=== PATIENT | male | born 1970 | race Caucasian/White ===

== ENCOUNTER 2018-01-03 18:07 | Emergency (ER) | payer BC ==
[2018-01-03 18:14] VITALS: BP 129/83
--- NOTE | 2018-01-03 18:21 | UC ---
FLU HPI - HPI Summary HPI Summary: Pt presents with dry cough and sore throat for the last 2 weeks. Over the last 3 days has had body aches and fatigue. He has not taken anything for his symptoms. He says that his throat feels large and painful - worse at night. He can eat solid food, but is very painful so has been only been drinking most of the time. He is able to tolerate his own saliva and is breathing without difficulty. Denies fever, chills, SOB, chest pain, abdominal pain, n/v/d/c. - History of Current Complaint Chief Complaint: UCGeneralIllness Stated Complaint: RESP COMPLAINT Time Seen by Provider: 01/03/18 18:18 Hx Obtained From: Patient Severity Currently: Moderate Severity Initially: Moderate Pain Intensity: 6 Pain Scale Used: 0-10 Numeric - Allergy/Home Medications Allergies/Adverse Reactions: Allergies Allergy/AdvReac Type Severity Reaction Status Date / Time No Known Allergies Allergy Verified 01/03/18 18:14 Home Medications: Home Medications Tiotropium Br/Olodaterol HCl [Stiolto Respimat Inhal [place]] 4 gm PO DAILY [History Confirmed 01/03/18] PMH/Surg Hx/FS Hx/Imm Hx Endocrine History: Diabetes Cardiovascular History: Hypertension - Surgical History Surgical History: None - Family History Known Family History: Positive: None - Social History Lives: With Family Alcohol Use: None Substance Use Type: None Smoking Status (MU): Light Every Day Tobacco Smoker Type: Cigarettes Amount Used/How Often: 1 PPD Length of Time of Smoking/Using Tobacco: 20 YEARS Have You Smoked in the Last Year: Yes Review of Systems Constitutional: Fatigue, Other - Body aches Skin: Negative Eyes: Negative ENT: Sore Throat Respiratory: Cough Cardiovascular: Negative Gastrointestinal: Negative Neurovascular: Negative Musculoskeletal: Negative Neurological: Negative Psychological: Negative All Other Systems Reviewed And Are Negative: Yes Physical Exam Triage Information Reviewed: Yes Appearance: Well-Appearing, No Pain Distress, Well-Nourished Vital Signs: Initial Vital Signs Temp 97.9 F 01/03/18 18:10 Pulse 100 01/03/18 18:10 Resp 21 01/03/18 18:10 BP 129/83 01/03/18 18:10 Pulse Ox 98 01/03/18 18:10 Vital Signs Reviewed: Yes Eyes: Positive: Conjunctiva Clear. Negative: Conjunctiva Inflamed, Discharge ENT: Positive: Hearing grossly normal, Pharyngeal erythema, TMs normal, Tonsillar swelling - Left 4+ and abutting the uvula, Muffled voice - Mild, Uvula midline. Negative: Nasal congestion, Nasal drainage, TM bulging, TM dull , TM red, Tonsillar exudate, Hoarse voice, Sinus tenderness Neck: Positive: Supple, Other: - Anterior lymphadenopathy. Mildly TTP. Respiratory: Positive: Lungs clear, Normal breath sounds, No respiratory distress, No accessory muscle use Cardiovascular: Positive: RRR, No Murmur, Pulses Normal Neurological: Positive: Alert Psychological: Positive: Age Appropriate Behavior Skin: Negative: rashes Flu Course/Dx - Course Course Of Treatment: POC flu negative. Peritonsillar abscess on left. 1gm ceftriaxone IM and 4mg dexamethasone in clinic today. D/c with clindamycin 300mg TID and prednisone 40mg daily for 3 days. I spoke with Dr. AIKEN of ENT and he was in agreement with this plan and advised the pt to call his office on wednesday for f/u. Go to ED if symptoms worsen. - Differential Dx/Diagnosis Provider Diagnoses: Peritonsillar abscess left Discharge - Discharge Plan Condition: Stable Disposition: HOME Prescriptions: Clindamycin HCl 300 mg PO TID #30 capsule predniSONE TAB* [Deltasone TAB*] 20 mg PO BID #6 tab Patient Education Materials: Peritonsillar Abscess (ED) Referrals: Jorge L Aiken MD [Medical Doctor] - Oracio Hurley NP [Primary Care Provider] - Additional Instructions: If you develop a fever, shortness of breath, chest pain, new or worsening symptoms - please call your PCP or go to the ED. 1) If by Wednesday your symptoms have not improved or if they are worse - please call DR. AIKEN at [phone] and he will see you.
[2018-01-03] MEDS ORDERED: Lidocaine 1% MPF* 2 ML VIAL INJ ONE (19:06)
[2018-01-03] MEDS ORDERED: cefTRIAXone VIAL(*) 1,000 MG VIAL IM ONE (19:06)
[2018-01-03] MEDS ORDERED: Dexamethasone TAB* 4 MG PO ONE (19:11)
== END 2018-01-03 20:00 | disposition home or self-care (01) ==
LOC: UCEAST 18:07
DX: J36 Peritonsillar abscess (principal); R53.83 Other fatigue; M79.1 Myalgia; R05 Cough; E11.9 Type 2 diabetes mellitus without complications; I10 Essential (primary) hypertension; F17.210 Nicotine dependence, cigarettes, uncomplicated
CPT/HCPCS: 87502; 96372; 99212; G0463; J0696; J8540

== ENCOUNTER 2019-05-31 19:40 | Emergency (ER) | payer BC ==
--- OUTSIDE RECORDS SUMMARY | 2019-05-31 19:46 | XMS REPORT | Continuity of Care Document ---
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 Onset: 10/29/2015 Restless legs Oracio Hurely, N.P. Onset: 10/29/2015 Essential hypertension Oracio Hurley, N.P. Onset: 10/29/2015 Chronic obstructive lung disease Oracio Hurley, N.P. Onset: 01/28/2016 Overweight Oracio Hurley, N.P. Onset: 01/25/2017 Mood disorder Oracio Hurley, N.P. 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 Ointment knees and elbows Ibuprofen 1 by mouth four 40tabs [place], 10/25/2018 800mg Tablets times a day with Mashelle, N.P. food Farxiga 1 by mouth every 30tabs [place], 08/08/2018 5mg Tablets day Mashelle, N.P. Trazodone HCL take one to two 60tabs [place], 07/26/2018 100mg tablets by mouth Mashelle, N.P. Tablets at bedtime Allergy [place], 04/26/2018 10mg Tablets Mashelle, N.P. Prilosec OTC 1 by mouth every 90tabs [place], 01/24/2018 20mg day Mashelle, N.P. Tablets DR Reddy [facility] Strips Glucometer Once Mashelle, N.P. Daily as Directed Ropinirole HCL Take One Tablet By 90ta [place], 10/29/2015 3mg Mouth AT Bedtime Mashelle, N.P. Tablets Stiolto Respimat Inhale Two Puffs 4un [place], 10/29/2015 By Mouth Every Day Mashelle, N.P. 2.5-2.5mcg/Act Aerosol Glucometer use as directed [facility], 03/09/2014 tid Mashelle, N.P. Test Strips [facility], 03/09/2014 glucometer once Mashelle, N.P. every day as directed Tradjenta Take One Tablet By 90tabs [place], 02/29/2012 5mg Tablets Mouth Every Day Mashelle, N.P. Met[facility] HCL [facility] 500mg mouth twice a day Mashelle, N.P. Tablets Lisinopril take one tablet by 90tabs [place], 04/23/2011 20mg Tablets mouth every day Mashelle, N.P. Vitamin D-3 Super 1 po qd 100tabs Bernard Cuenca 03/26/2009 Riky Pendleton MD 2000Unit Tablets History Medications Trazodone HCL take one to two 60tabs [place], 07/26/2018 - 100mg tablets by mouth Mashelle, N.P. 10/25/2018 Tablets at bedtime Lyrica take one capsule 28caps [place], 04/26/2018 - 75mg Capsules by mouth twice a Mashelle, N.P. 07/26/2018 day maximum daily dose=2 capsules Omeprazole Take One Capsule 30caps [place], 02/22/2018 - 20mg Capsules [facility]outh [facility] 04/[facility]2018 DR Day Cyclobenzaprine HCL Take One Tablet 30tabs [place], 02/03/2018 - 10mg By Mouth AT Mashelle, N.P. 07/26/2018 Tablets Bedtime Calcipotriene Apply bid to 60gm [place], 01/24/2018 - 0.005% [facility] 04/26/2018 Ointment knees and elbows Duloxetine HCL take 1 capsule by 30caps [facility], 10/26/2017 - 60mg Caps mouth 1 time Oracio, N.P. 11/16/2017 DR Part daily Sertraline HCL take one tablet 90tabs [place], 10/26/2017 - 50mg by mouth at Mashelle, N.P. 01/24/2018 Tablets bedtime Cyclobenzaprine HCL Take One Tablet 30tabs [place], 03/24/2017 - 10mg By Mouth [facility] 10/26/2017 Tablets Bedtime Escitalopram Oxalate 1 by mouth every 30tabs [place], 01/25/2017 - 20mg day Mashelle, N.P. 04/27/2017 Tablets Nicotrol use up to 16 504units [place], 01/25/2017 - 10mg Inhaler cartridges qd as Mashelle, N.P. 07/26/2018 directed Cyclobenzaprine HCL take one tablet 30tabs [facility], 10/27/2016 - 10mg by mouth q hs Demetriusle, N.P. 01/25/2017 Tablets Cyclobenzaprine HCL take one tablet 30tabs [place], 07/28/2016 - 10mg by mouth three Mashelle, N.P. 10/27/2016 Tablets times a day as needed muscle spasm Wellbutrin XL take one tablet 30tabs [place], 04/28/2016 - 150mg by mouth every Mashelle, N.P. 04/27/2017 Tablets ER 24HR day Zithromax Z-Flaquito as directed 1tabs [place], 10/16/2015 - [facility] 10/29/2015 Tablets Neurontin Take Two Capsules 60caps [place], 10/01/2015 - 100mg Capsules By Mouth AT [facility], N.P. 10/29/2015 Bedtime And Take One Capsule By Mouth Every Morning Ropinirole HCL 1 po qhs 30tabs [place], 09/09/2015 - 2mg [place], N.P. 10/29/2015 Tablets Gabapentin 2 by mouth every 60caps [place], 07/30/2015 - 100mg Capsules at bedtime and 1 Mashelle, N.P. 10/29/2015 in in the morning Soma 1 by mouth four 20tabs [place], 04/25/2015 - 350mg Tablets times a day Mashelle, N.P. 07/30/2015 Cyclobenzaprine HCL 1 po q tid prn 30tabs [place], 10/26/2014 - 10mg [facility]asm [facility] 04/25/2015 Tablets Cipro 1 by mouth twice 20tabs [place], 07/25/2014 - 500mg Tablets a day x 10 days Oracio, N.P. 08/30/2014 Requip 1 by mouth every 90tabs [place], 10/24/2013 - 2mg Tablets at bedtime [place], N.P. 07/30/2015 Cyclobenzaprine HCL 1 po q tid prn 30tabs [place], 08/09/2013 - 10mg spasm [facility], N.P. 07/25/2014 Tablets Keflex 1 po qid x 10 40caps [place], 02/16/2013 - 500mg Capsules days Mashelle, N.P. 05/08/2013 Clotrimazole/Betametha apply tid to 45gm [place], 02/03/2013 - sone Dipropionate affected area [place], N.P. 08/09/2013 1-0.05% Cream Flexeril 1 po q hs 30tabs [place], 05/05/2012 - 10mg Tablets [place], N.P. 08/09/2013 Onglyza 1 po qd 30tabs [place], 02/12/2012 - 5mg Tablets Demetriusle, N.P. 02/29/2012 Lotrisone apply tid to 45gm [place], 02/03/2012 - 1-0.05% Cream affected area [place], N.P. 02/03/2013 Wellbutrin XL 1 by mouth every 90tabs [place], 11/03/2011 - 300mg day [place], N.P. 01/24/2015 Tablets ER 24HR Lotrisone apply tid to 15gm [place], 08/04/2011 - 1-0.05% Cream affected area Demetriusreji, N.P. 11/03/2011 Bactroban apply bid as 22gm [place], 05/07/2011 - 2% Ointment directed Oracio, N.P. 07/24/2011 Lisinopril 1 po qd 30tabs [place], 04/09/2011 - 10mg [facility]ts [facility] 04/23/2011 Wellbutrin SR 1 po bid 60tabs [place], 04/09/2011 - 150mg Oracio, N.P. 11/03/2011 Tablets ER 12HR Prednisone 1 po qd x 5 days 5tabs [place], 03/31/2011 - 50mg Tablets Demetriusle, N.P. 04/09/2011 Keflex 1 po qid x 7 days 28caps [place], 03/31/2011 - 500mg Capsules [facility] 04/09/2011 Clobetasol Propionate apply bid prn 60gm [place], 06/27/2009 - as directed Oracio N.P. 08/09/2013 0.05% Cream Chantix Starter Pack as directed 1Mos 401.9 Bernard Cuenca 2009 - MD Keerthi 03/31/2011 #1Pack Triamcinolone bid x 10 days 60GR 696.8 Bernard Cuenca 2009 - Acetmindy Pendleton MD 08/04/2011 0.5% Cream Taclonex Unknown - 0.005-0.064% 10/26/2014 Suspension Calcipotriene Unknown - 0.005% 10/26/2014 Ointment Immunizations CPT Code Status Date Vaccine Lot # [id number] Given 07/26/2018 Influenza Vac, Quadrivalent, Split, 0.5mL Dosage, [id number] Im Use 94802 Given 07/27/2017 Influenza Vac, Quadrivalent, Split, 0.5mL Dosage, [id number] Im Use 39537 Given 10/27/2016 Influenza Vac, Quadrivalent, Split, 0.5mL Dosage, [id number] Im Use 09762 Given 07/30/2015 Influenza Vac, Quadrivalent, Split, 0.5mL Dosage, [id number] Im Use 21323 Given 10/26/2014 Afluria Or Fluvirin Flu Vac Intramuscular [id number] Q2038 Given 10/24/2013 Fluzone Trivalent Immunization [id number] Given 2009 Tdap (Adacel) Ages 7 And Above Only [id number] Vital Signs Date Vital Result Comment 05/02/2019 8:01am Body Temperature 98.2 F Weight 331.00 lb Heart Rate 86 /min BP Systolic 128 mmHg BP Diastolic 80 mmHg Height 71 inches 5'11" O2 % BldC Oximetry 95 % BMI (Body Mass Index) 46.2 kg/m2 01/26/2019 7:59am Body Temperature 97.0 F Weight 337.38 lb Heart Rate 88 /min BP Systolic 132 mmHg BP Diastolic 82 mmHg O2 % BldC Oximetry 94 % 10/25/2018 8:03am Body Temperature 97.7 F Weight 342.25 lb Heart Rate 75 /min BP Systolic 130 mmHg BP Diastolic 76 mmHg O2 % BldC Oximetry 97 % 08/08/2018 8:06am Body Temperature 97.3 F Weight 330.00 lb Heart Rate 91 /min BP Systolic 146 mmHg BP Diastolic 94 mmHg O2 % BldC Oximetry 95 % 07/26/2018 8:04am Body Temperature 97.7 F Weight 337.50 lb Heart Rate 82 /min BP Systolic 147 mmHg BP Diastolic 90 mmHg O2 % BldC Oximetry 92 % 04/26/2018 8:01am Body Temperature 97.7 F Weight 346.00 lb Heart Rate 80 /min BP Systolic 130 mmHg BP Diastolic 90 mmHg O2 % BldC Oximetry 98 % 01/24/2018 8:00am Body Temperature 97.3 F Weight 336.25 lb Heart Rate 97 /min BP Systolic 133 mmHg BP Diastolic 87 mmHg O2 % BldC Oximetry 98 % 11/16/2017 8:28am Body Temperature 97.9 F Weight 337.00 lb Heart Rate 93 /min BP Systolic 144 mmHg BP Diastolic 84 mmHg O2 % BldC Oximetry 95 % 10/26/2017 8:11am Body Temperature 97.7 F Weight 341.00 lb Heart Rate 78 /min BP Systolic 136 mmHg BP Diastolic 85 mmHg O2 % BldC Oximetry 94 % 07/27/2017 8:11am Body Temperature 97.3 F Weight 332.00 lb Heart Rate 84 /min BP Systolic 120 mmHg BP Diastolic 80 mmHg O2 % BldC Oximetry 96 % 04/27/2017 8:05am Body Temperature 97.5 F Weight 335.00 lb Heart Rate 85 /min BP Systolic 120 mmHg BP Diastolic 80 mmHg O2 % BldC Oximetry 96 % 01/25/2017 8:08am Body Temperature 97.5 F Weight 342.50 lb Heart Rate 80 /min BP Systolic 138 mmHg BP Diastolic 80 mmHg Height 73 inches 6'1" BMI (Body Mass Index) 45.2 kg/m2 10/27/2016 8:07am Body Temperature 96.8 F Weight 341.12 lb Heart Rate 91 /min BP Systolic 130 mmHg BP Diastolic 80 mmHg O2 % BldC Oximetry 93 % 07/28/2016 8:23am Body Temperature 96.6 F Weight 334.50 lb Heart Rate 77 /min BP Systolic 140 mmHg BP Diastolic 80 mmHg O2 % BldC Oximetry 95 % 04/28/2016 8:13am Body Temperature 97.3 F Weight 337.31 lb Heart Rate 85 /min BP Systolic 136 mmHg BP Diastolic 84 mmHg O2 % BldC Oximetry 96 % 01/28/2016 8:33am Body Temperature 97.3 F Weight 330.00 lb Heart Rate 92 /min BP Systolic 120 mmHg BP Diastolic 86 mmHg O2 % BldC Oximetry 94 % 10/29/2015 7:52am Body Temperature 97.3 F Weight 322.25 lb Heart Rate 86 /min BP Systolic 134 mmHg BP Diastolic 86 mmHg O2 % BldC Oximetry 97 % 10/16/2015 9:46am Body Temperature 97.0 F Weight 327.25 lb Heart Rate 90 /min BP Systolic 110 mmHg BP Diastolic 70 mmHg O2 % BldC Oximetry 96 % 07/30/2015 8:27am Body Temperature 97.9 F Weight 319.12 lb Heart Rate 81 /min BP Systolic 142 mmHg BP Diastolic 88 mmHg O2 % BldC Oximetry 97 % 04/25/2015 8:38am Body Temperature 97.2 F Weight 323.00 lb Heart Rate 84 /min BP Systolic 128 mmHg BP Diastolic 86 mmHg O2 % BldC Oximetry 97 % 01/24/2015 8:27am Body Temperature 98.0 F Weight 326.00 lb Heart Rate 77 /min BP Systolic 130 mmHg BP Diastolic 88 mmHg O2 % BldC Oximetry 95 % 10/26/2014 8:10am Weight 327.00 lb Heart Rate 88 /min BP Systolic 128 mmHg BP Diastolic 88 mmHg O2 % BldC Oximetry 97 % 08/30/2014 2:08pm Body Temperature 97.7 F Weight 320.00 lb Heart Rate 89 /min BP Systolic 124 mmHg BP Diastolic 80 mmHg O2 % BldC Oximetry 94 % 07/25/2014 8:17am Body Temperature 98.1 F Weight 316.00 lb Heart Rate 76 /min BP Systolic 138 mmHg BP Diastolic 90 mmHg O2 % BldC Oximetry 96 % 04/24/2014 8:16am Body Temperature 97.9 F Weight 324.00 lb Heart Rate 96 /min BP Systolic 124 mmHg BP Diastolic 86 mmHg O2 % BldC Oximetry 97 % 01/22/2014 8:23am Body Temperature 97.7 F Weight 330.38 lb Heart Rate 84 /min BP Systolic 120 mmHg BP Diastolic 80 mmHg O2 % BldC Oximetry 95 % 10/24/2013 8:20am Body Temperature 98.1 F Weight 327.38 lb Heart Rate 85 /min BP Systolic 116 mmHg BP Diastolic 70 mmHg O2 % BldC Oximetry 97 % 08/09/2013 8:17am Body Temperature 97.8 F Weight 325.50 lb Heart Rate 81 /min BP Systolic 130 mmHg BP Diastolic 90 mmHg O2 % BldC Oximetry 96 % 05/08/2013 8:13am Body Temperature 96.3 F Weight 325.50 lb Heart Rate 90 /min BP Systolic 130 mmHg BP Diastolic 82 mmHg O2 % BldC Oximetry 96 % 02/03/2013 8:15am Body Temperature 98.1 F Weight 328.50 lb Heart Rate 82 /min BP Systolic 128 mmHg BP Diastolic 76 mmHg O2 % BldC Oximetry 96 % 11/04/2012 8:10am Body Temperature 98.3 F Weight 320.38 lb Heart Rate 95 /min BP Systolic 132 mmHg BP Diastolic 76 mmHg O2 % BldC Oximetry 96 % 08/05/2012 8:07am Body Temperature 98.1 F Weight 309.50 lb Heart Rate 83 /min BP Systolic 112 mmHg BP Diastolic 70 mmHg O2 % BldC Oximetry 98 % 05/05/2012 8:23am Body Temperature 97.7 F Weight 317.25 lb Heart Rate 78 /min BP Systolic 120 mmHg BP Diastolic 78 mmHg O2 % BldC Oximetry 94 % 02/03/2012 3:13pm Body Temperature 97.8 F Weight 326.00 lb Heart Rate 96 /min BP Systolic 120 mmHg BP Diastolic 80 mmHg O2 Saturation Level with Exercise 95 % 11/03/2011 8:22am Body Temperature 97.9 F Weight 329.00 lb Heart Rate 82 /min BP Systolic 124 mmHg BP Diastolic 86 mmHg O2 % BldC Oximetry 96 % 08/04/2011 9:04am Body Temperature 97.7 F Weight 320.00 lb Heart Rate 79 /min BP Systolic 138 mmHg BP Diastolic 78 mmHg O2 % BldC Oximetry 95 % 07/24/2011 8:19am Body Temperature 98.2 F Weight 322.00 lb Heart Rate 80 /min BP Systolic 138 mmHg BP Diastolic 82 mmHg O2 % BldC Oximetry 95 % 05/07/2011 3:21pm Heart Rate 85 /min BP Systolic 130 mmHg BP Diastolic 80 mmHg 04/23/2011 8:35am Weight 329.00 lb Heart Rate 88 /min BP Systolic 146 mmHg BP Diastolic 82 mmHg O2 % BldC Oximetry 95 % 04/09/2011 3:06pm Weight 334.00 lb Heart Rate 90 /min BP Systolic 130 mmHg BP Diastolic 90 mmHg 03/31/2011 8:32am Weight 334.00 lb Heart Rate 87 /min BP Systolic 130 mmHg BP Diastolic 90 mmHg O2 % BldC Oximetry 96 % 06/27/2009 3:49pm Body Temperature 98.1 F Weight 327.00 lb Heart Rate 80 /min BP Systolic 130 mmHg BP Diastolic 84 mmHg 03/26/2009 4:07pm Body Temperature 97.6 F Weight 338.00 lb Heart Rate 72 /min BP Systolic 150 mmHg BP Diastolic 88 mmHg Height 71.75 inches 5'11.75" BMI (Body Mass Index) 46.2 kg/m2 2009 4:23pm Body Temperature 97.7 F Weight 342.00 lb Heart Rate 100 /min BP Systolic 164 mmHg BP Diastolic 94 mmHg Height 71.75 inches 5'11.75" O2 % BldC Oximetry 95 % BMI (Body Mass Index) 46.7 kg/m2 Results Test Date Facility Test Result H/L Range Note Comprehensive Met Panel-[facility] 01/26/2019 [facility] Sodium 137 mmol/L 135- 146 1, 2 Potassium 5.4 mmol/L High 3.5-5.2 Chloride# 100 mmol/L 97-110 3 Carbon Dioxide 30 mmol/L 24-34 Glucose 154 mg/dL High 70-105 BUN 15 mg/dL 6-26 Creatinine 0.9 mg/dL 0.5-1.4 Calcium 9.8 mg/dL 8.5-10.2 Total Protein 7.2 g/dL 6.0-8.0 Albumin 4.5 g/dL 3.6-4.9 Globulin 2.7 g/dL 2.0-3.5 A/G Ratio 1.7 Ratio 1.0-2.2 Total Bilirubin 0.4 mg/dL 0.1-1.3 Alkaline Phosphatase 71 U/L 24-140 Alt 42 U/L 3-42 Ast 25 U/L 8-42 Anion Gap 7 mmol/L 5-15 4 Mei Egfr >60 >60 5 Non Mei Egfr >60 >60 6 [facility] 8[facility]6 % High 4.1-5.9 Estimated Average Glucose Calc 200 mg/dL High 71-140 [facility] Ch[facility] 194 mg/dL 50-199 Triglycerides 292 mg/dL High 30-200 HDL 28 mg/dL Low 29-71 7 Chol/ HDL Ratio 6.9 ratio High 4.0-6.7 VLDL 58 mg/dL High 2-29 LDL (Calc) 107 mg/dL High 20-99 8 [facility] 7.3 % High 4.1-5.9 9 Estimated Average Glucose Calc 163 mg/dL High 71-140 [place] Igm[facility]gg [facility] @ NEGATIVE (Neg) 10 Comprehensive Met 10/25/2018 [facility] Sodium 136 mmol/L 135-146 11 Panel-[facility] Potassium 5.1 mmol/L 3.5-5.2 Chloride# 100 mmol/L 97-110 12 Carbon Dioxide 30 mmol/L 24-34 Glucose 150 mg/dL High 70-105 BUN 12 mg/dL 6-26 Creatinine 1.0 mg/dL 0.5-1.4 Calcium 9.6 mg/dL 8.5-10.2 Total Protein 6.9 g/dL 6.0-8.0 Albumin 4.4 g/dL 3.6-4.9 Globulin 2.5 g/dL 2.0-3.5 A/G Ratio 1.8 Ratio 1.0-2.2 Total Bilirubin 0.4 mg/dL 0.1-1.3 Alkaline Phosphatase 60 U/L 24-140 Alt 43 U/L High 3-42 Ast 28 U/L 8-42 Mei Egfr >60 >60 13 Non Mei Egfr >60 >60 14 Anion Gap 6 mmol/L 5-15 15 Lipid 10/25/2018 [facility] Cholesterol 191 mg/dL 50-199 Triglycerides 240 mg/dL High 30-200 HDL 27 mg/dL Low 29-71 16 Chol/ HDL Ratio 7.1 ratio High 4.0-6.7 VLDL 48 mg/dL High 2-29 LDL (Calc) 116 mg/dL High 20-99 17 [facility] (C-Re[facility] 0.40 mg/dL 0.00- 0.75 finding Hem[facility]c [facility] A1[facility] 7.6 % High 4.1-5.9 Estimated Average Glucose Calc 171 mg/dL High 71-140 Comprehensive Met Panel-[facility] 07/26/2018 [place] Sodium 135 mmol/L 135- 146 18 Potassium 5.1 mmol/L 3.5-5.2 Chloride# 100 mmol/L 97-110 19 Carbon Dioxide 31 mmol/L 24-34 Glucose 165 mg/dL High 70-105 BUN 16 mg/dL 6-26 Creatinine 1.0 mg/dL 0.5-1.4 Calcium 9.5 mg/dL 8.5-10.2 Total Protein 6.7 g/dL 6.0-8.0 Albumin 4.4 g/dL 3.6-4.9 Globulin 2.3 g/dL 2.0-3.5 A/G Ratio 1.9 Ratio 1.0-2.2 Total Bilirubin 0.5 mg/dL 0.1-1.3 Alkaline Phosphatase 57 U/L 24-140 Alt 42 U/L 3-42 Ast 29 U/L 8-42 Mei Egfr >60 >60 20 Non Mei Egfr >60 >60 21 Anion Gap 4 mmol/L Low 5-15 22 Hemoglobin A1c 04/26/2018 [place] Hemoglobin A1c 7.5 % High 4.1-5.9 Estimated Average Glucose Calc 169 mg/dL High 71-140 Comprehensive Met Panel-[facility] 04/26/2018 [facility] Sodium 138 mmol/L 135- 146 23 Potassium 5.6 mmol/L High 3.5-5.2 Chloride# 99 mmol/L 97-110 24 Carbon Dioxide 27 mmol/L 24-34 Glucose 140 mg/dL High 70-105 BUN 15 mg/dL 6-26 Creatinine 1.1 mg/dL 0.5-1.4 Calcium 10.0 mg/dL 8.5-10.2 Total Protein 7.1 g/dL 6.0-8.0 Albumin 4.5 g/dL 3.6-4.9 Globulin 2.6 g/dL 2.0-3.5 A/G Ratio 1.7 Ratio 1.0-2.2 Total Bilirubin 0.5 mg/dL 0.1-1.3 Alkaline Phosphatase 53 U/L 24-140 Alt 43 U/L High 3-42 Ast 28 U/L 8-42 Mei Egfr >60 >60 25 Non Mei Egfr >60 >60 26 Anion Gap 12 mmol/L 5-15 27 Lipid 04/26/2018 [place] Cholesterol 187 mg/dL 50-199 Triglycerides 248 mg/dL High 30-200 HDL 29 mg/dL 29- 28 Chol/ HDL Ratio 6.5 ratio 4.0-6.7 VLDL 50 mg/dL High 2-29 LDL (Calc) 109 mg/dL High 20-99 29 Hemoglobin A1c 01/24/2018 [place] Hemoglobin A1c 7.1 % High 4.1-5.9 Estimated Average Glucose Calc 157 mg/dL High 71-140 Comprehensive Met Panel-[facility] 01/24/2018 [facility] Sodium 140 mmol/L 135- 146 30 Potassium 5.1 mmol/L 3.5-5.2 Chloride# 103 mmol/L 97-110 31 Carbon Dioxide 29 mmol/L 24-34 Glucose 129 mg/dL High 70-105 BUN 22 mg/dL 6-26 Creatinine 0.9 mg/dL 0.5-1.4 Calcium 9.2 mg/dL 8.5-10.2 Total Protein 6.6 g/dL 6.0-8.0 Albumin 4.2 g/dL 3.6-4.9 Globulin 2.4 g/dL 2.0-3.5 A/G Ratio 1.8 Ratio 1.0-2.2 Total Bilirubin 0.3 mg/dL 0.1-1.3 Alkaline Phosphatase 48 U/L 24-140 Alt 35 U/L 3-42 Ast 24 U/L 8-42 Mei Egfr >60 >60 32 Non Mei Egfr >60 >60 33 Anion Gap 8 mmol/L 5-15 34 Hemoglobin A1c 10/26/2017 [place] Hemoglobin A1c 6.9 % High 4.1-5.9 Estimated Average Glucose Calc 151 mg/dL High 71-140 Comprehensive Met Panel-[facility] 10/26/2017 [place] Sodium 137 mmol/L 135- 146 35 Potassium 6.1 mmol/L High 3.5-5.2 36 Chloride# 101 mmol/L 97-110 37 Carbon Dioxide 29 mmol/L 24-34 Glucose 156 mg/dL High 70-105 Creatinine 1.0 mg/dL 0.5-1.4 Calcium 9.6 mg/dL 8.5-10.2 Total Protein 7.1 g/dL 6.0-8.0 Albumin 4.5 g/dL 3.6-4.9 Globulin 2.6 g/dL 2.0-3.5 A/G Ratio 1.7 Ratio 1.0-2.2 Total Bilirubin 0.4 mg/dL 0.1-1.3 Alkaline Phosphatase 59 U/L 24-140 Alt 42 U/L 3-42 Ast 26 U/L 8-42 Mei Egfr >60 >60 38 Non Mei Egfr >60 >60 39 Anion Gap 7 mmol/L 7-16 40 BUN 17 mg/dL 6-26 Lipid 10/26/2017 [place] Cholesterol 198 mg/dL 50-199 Triglycerides 357 mg/dL High 30-200 HDL 29 mg/dL 29-71 41 Chol/ HDL Ratio 6.7 ratio 4.0-6.7 VLDL 71 mg/dL High 2-29 LDL (Calc) 97 mg/dL 20-99 42 Hemoglobin A1c 07/27/2017 [place] Hemoglobin A1c 6.8 % High 4.1-5.9 43 Estimated Average Glucose Calc 148 High 71-140 Comprehensive Met Panel-[facility] 07/27/2017 [facility] Sodium 140 mmol/L 135- 146 44 Potassium 6.0 mmol/L High 3.5-5.2 Chloride# 103 mmol/L 97-110 45 Carbon Dioxide 31 mmol/L 24-34 Glucose 130 mg/dL High 70-105 BUN 15 mg/dL 6-26 Creatinine 1.1 mg/dL 0.5-1.4 Calcium 10.1 mg/dL 8.5-10.2 Total Protein 6.9 g/dL 6.0-8.0 Albumin 4.5 g/dL 3.6-4.9 Globulin 2.4 g/dL 2.0-3.5 A/G Ratio 1.9 Ratio 1.0-2.2 Total Bilirubin 0.6 mg/dL 0.1-1.3 Alkaline Phosphatase 50 U/L 24-140 Alt 49 U/L High 3-42 Ast 31 U/L 8-42 Mei Egfr >60 >60 46 Non Mei Egfr >60 >60 47 Anion Gap 6 mmol/L Low 7-16 48 Lipid 07/27/2017 [facility] Cholesterol 192 mg/dL 50-199 Triglycerides 241 mg/dL High 30-200 HDL 28 mg/dL Low 29-71 49 Chol/ HDL Ratio 6.8 ratio High 4.0-6.7 VLDL 48 mg/dL High 2-29 LDL (Calc) 116 mg/dL High 20-99 50 Lipid 04/27/2017 [facility] Cholesterol 168 mg/dL 50-199 Triglycerides 238 mg/dL High 30-200 HDL 28 mg/dL Low 29-71 51 Chol/ HDL Ratio 5.9 ratio 4.0-6.7 VLDL 48 mg/dL High 2-29 LDL (Calc) 92 mg/dL 20-99 52 Comprehensive Metabolic (CMP) 04/27/2017 [facility] Sodium 137 mmol/L 135- 146 53 Potassium 5.1 mmol/L 3.5-5.2 Chloride# 103 mmol/L 97-110 54 Carbon Dioxide 26 mmol/L 24-34 Glucose 118 mg/dL High 70-105 BUN 15 mg/dL 6-26 Creatinine 1.0 mg/dL 0.5-1.4 Calcium 10.4 mg/dL High 8.5-10.2 Total Protein 6.8 g/dL 6.0-8.0 Albumin 4.4 g/dL 3.6-4.9 Globulin 2.4 g/dL 2.0-3.5 A/G Ratio 1.8 Ratio 1.0-2.2 Total Bilirubin 0.5 mg/dL 0.1-1.3 Alkaline Phosphatase 55 U/L 24-140 Alt 49 U/L High 3-42 Ast 31 U/L 8-42 Mei Egfr >60 >60 55 Non Mei Egfr >60 >60 56 Anion Gap 13 mmol/L 7-16 57 [facility] A[facility] 6.5 % High 4.1-5.9 Estimated Average Glucose Calc 140 71-140 Lipid 01/25[facility]2017 [facility] Cholesterol 187 mg/dL 50-199 Triglycerides 283 mg/dL High 30-200 HDL 32 mg/dL 29-71 58 Chol/ HDL Ratio 5.9 ratio 4.0-6.7 VLDL 57 mg/dL High 2-29 LDL (Calc) 99 mg/dL 20-99 59 Microalb/Creat [facility] Creatinine, Urine 114.5 mg/dL 60 Microalbumin < 5.0 ug/ml 5.0-20.0 Laboratory test finding [facility]2017 [facility] Hemoglobin A1c 6.5 % High 4.1- 5.9 Comprehensive Met[facility]2017 [facility] Sodium 140 mmol/L 135-146 61 (CMP) Potassium 5.7 No visible h <SEE NOTE> mmol/L High 3.5-5.2 62 Chloride# 103 mmol/L 97-110 63 Carbon Dioxide 32 mmol/L 24-34 Glucose 124 mg/dL High 70-105 BUN 17 mg/dL 6-26 Creatinine 1.1 mg/dL 0.5-1.4 Calcium 9.8 mg/dL 8.5-10.2 Total Protein 6.7 g/dL 6.0-8.0 Albumin 4.5 g/dL 3.6-4.9 Globulin 2.2 g/dL 2.0-3.5 A/G Ratio 2.0 Ratio 1.0-2.2 Total Bilirubin 0.4 mg/dL 0.1-1.3 Alkaline Phosphatase 51 U/L 24-140 Alt 45 U/L High 3-42 Ast 28 U/L 8-42 Mei Egfr >60 >60 64 Non Mei Egfr >60 >60 65 Anion Gap 11 mmol/L 7-16 66 Lipid 10/27/2016 [facility] Cholesterol 177 mg/dL 50-199 Triglycerides 254 mg/dL High 30-200 HDL 28 mg/dL Low 29-71 67 Chol/ HDL Ratio 6.3 ratio 4.0-6.7 VLDL 51 mg/dL High 2-29 LDL (Calc) 98 mg/dL 20-99 68 Laboratory test finding 10/27/2016 [facility] Hemoglobin A1c 6.3 % High 4.1- 5.9 Comprehensive Metabolic 10/27/2016 [facility] Sodium 136 mmol/L 134-142 (CMP) Potassium 5.5 No visible h <SEE NOTE> mmol/L High 3.5-5.2 69 Chloride 100 mmol/L 97-109 Carbon Dioxide 32 mmol/L 24-34 Glucose 116 mg/dL High 70-105 BUN 16 mg/dL 6-26 Creatinine 1.1 mg/dL 0.5-1.4 Calcium 10.0 mg/dL 8.5-10.2 Total Protein 7.0 g/dL 6.0-8.0 Albumin 4.3 g/dL 3.6-4.9 Globulin 2.7 g/dL 2.0-3.5 A/G Ratio 1.6 Ratio 1.0-2.2 Total Bilirubin 0.5 mg/dL 0.1-1.3 Alkaline Phosphatase 48 U/L 24-140 Alt 40 U/L 3-42 Ast 28 U/L 8-42 Anion Gap 10 mmol/L 6-14 Mei Egfr >60 >60 70 Non Mei Egfr >60 >60 71 [facility]0 % High 4.1- 5.9 [facility] 134-142 (C[facility]) Potassium 5.9 No visible h <SEE NOTE> mmol/L High 3.5-5.2 72 Chloride 103 mmol/L 97-109 Carbon Dioxide 29 mmol/L 24-34 Glucose 98 mg/dL 70-105 BUN 14 mg/dL 6-26 Creatinine 1.1 mg/dL 0.5-1.4 Calcium 9.7 mg/dL 8.5-10.2 Total Protein 7.0 g/dL 6.0-8.0 Albumin 4.3 g/dL 3.6-4.9 Globulin 2.7 g/dL 2.0-3.5 A/G Ratio 1.6 Ratio 1.0-2.2 Total Bilirubin 0.4 mg/dL 0.1-1.3 Alkaline Phosphatase 49 U/L 24-140 Alt 31 U/L 3-42 Ast 22 U/L 8-42 Anion Gap 9 mmol/L 04-28 Mei Egfr >60 >60 73 Non Mei Egfr >60 >60 74 Lipid 07/28/2016 [facility] Cholesterol 181 mg/dL 50-199 Triglycerides 213 mg/dL High 30-200 HDL 28 mg/dL Low - 75 Chol/ HDL Ratio 6.5 ratio 4.0-6.7 VLDL 43 mg/dL High 2-29 LDL (Calc) 110 mg/dL High 20-99 76 Laboratory test finding 04/28/2016 [facility] Hemoglobin A1c 6.1 % High 4.1- 5.9 Comprehensive Metabolic 04/28/2016 [facility] Sodium 135 mmol/L 134-142 (CMP) Potassium 5.6 No visible h <SEE NOTE> mmol/L High 3.5-5.2 77 Chloride 102 mmol/L 97-109 Carbon Dioxide 27 mmol/L 24-34 Glucose 113 mg/dL High 70-105 BUN 16 mg/dL 6-26 Creatinine 1.0 mg/dL 0.5-1.4 Calcium 9.6 mg/dL 8.5-10.2 Total Protein 6.7 g/dL 6.0-8.0 Albumin 4.2 g/dL 3.6-4.9 Globulin 2.5 g/dL 2.0-3.5 A/G Ratio 1.7 Ratio 1.0-2.2 Total Bilirubin 0.4 mg/dL 0.1-1.3 Alkaline Phosphatase 45 U/L 24-140 Alt 39 U/L 3-42 Ast 24 U/L 8-42 Anion Gap 12 mmol/L 04-28 Mei Egfr >60 >60 78 Non Mei Egfr >60 >60 79 Lipid 04/28/2016 [facility] Cholesterol 179 mg/dL 50-199 Triglycerides 252 mg/dL High 30-200 HDL 28 mg/dL Low 29- 80 Chol/ HDL Ratio 6.4 ratio 4.0-6.7 VLDL 50 mg/dL High 2-29 LDL (Calc) 101 mg/dL High 20-99 81 Comprehensive Metabolic (CMP) 01/28/2016 [facility] Sodium 134 mmol/L 134- 142 Potassium 5.2 mmol/L 3.5-5.2 Chloride 100 mmol/L 97-109 Carbon Dioxide 28 mmol/L 24-34 Glucose 119 mg/dL High 70-105 BUN 15 mg/dL 6-26 Creatinine 1.0 mg/dL 0.5-1.4 Calcium 9.4 mg/dL 8.5-10.2 Total Protein 6.8 g/dL 6.0-8.0 Albumin 4.1 g/dL 3.6-4.9 Globulin 2.7 g/dL 2.0-3.5 A/G Ratio 1.5 Ratio 1.0-2.2 Total Bilirubin 0.6 mg/dL 0.1-1.3 Alkaline Phosphatase 48 U/L 24-140 Alt 42 U/L 3-42 Ast 30 U/L 8-42 Anion Gap 11 mmol/L 6-14 Mei Egfr >60 >60 82 Non Mei Egfr >60 >60 83 Lipid 01/28/2016 [facility] Cholesterol 180 mg/dL 50-199 Triglycerides 186 mg/dL 30-200 HDL 28 mg/dL Low 29-71 84 Chol/ HDL Ratio 6.4 ratio 4.0-6.7 VLDL 37 mg/dL High 2-29 LDL (Calc) 115 mg/dL High 20-99 85 Laboratory test finding 01/28/2016 [facility] Hemoglobin A1c 6.0 % High 4.1- 5.9 Comprehensive Metabolic 10/29/2015 [facility] Sodium 133 mmol/L Low 134-142 86 (CMP) Potassium 6.4 No visible h <SEE NOTE> mmol/L High 3.5-5.2 87 Chloride 98 mmol/L 97-109 Carbon Dioxide 29 mmol/L 24-34 Glucose 106 mg/dL High 70-105 BUN 15 mg/dL 6-26 Creatinine 1.1 mg/dL 0.5-1.4 Calcium 10.0 mg/dL 8.5-10.2 Total Protein 7.2 g/dL 6.0-8.0 Albumin 4.3 g/dL 3.6-4.9 Globulin 2.9 g/dL 2.0-3.5 A/G Ratio 1.5 Ratio 1.0-2.2 Total Bilirubin 0.5 mg/dL 0.1-1.3 Alkaline Phosphatase 49 U/L 24-140 Alt 53 U/L High 3-42 Ast 32 U/L 8-42 Anion Gap 12 mmol/L 6-14 Mei Egfr >60 >60 88 Non Mei Egfr >60 >60 89 Lipid 10/29/2015 [facility] Cholesterol 161 mg/dL 50-199 Triglycerides 259 mg/dL High 30-200 HDL 30 mg/dL - 90 Chol/ HDL Ratio 5.4 ratio 4.0-6.7 VLDL 52 mg/dL High 2-29 LDL (Calc) 79 mg/dL - 91 Laboratory test finding 10/29/2015 [facility] Hemoglobin A1c 6.1 % High 4.1- 5.9 Comprehensive Metabolic 07/30/2015 [facility] Sodium 135 mmol/L 134-142 (CMP) Potassium 4.8 mmol/L 3.5-5.2 Chloride 101 mmol/L 97-109 Carbon Dioxide 31 mmol/L 24-34 Glucose 100 mg/dL 70-105 BUN 15 mg/dL 6- Creatinine 1.1 mg/dL 0.5-1.4 Calcium 9.2 mg/dL 8.5-10.2 Total Protein 6.7 g/dL 6.0-8.0 Albumin 4.3 g/dL 3.6-4.9 Globulin 2.4 g/dL 2.0-3.5 A/G Ratio 1.8 Ratio 1.0-2.2 Total Bilirubin 0.5 mg/dL 0.1-1.3 Alkaline Phosphatase 42 U/L 24-140 Alt 42 U/L 3-42 Ast 28 U/L 8-42 Anion Gap 8 mmol/L 6- Mei Egfr >60 >60 92 Non Mei Egfr >60 >60 93 Laboratory test finding 07/30/2015 [facility] Hemoglobin A1c 6.0 % High 4.1- 5.9 Lipid 07/30/2015 [facility] Cholesterol 177 mg/dL 50-199 Triglycerides 189 mg/dL 30-200 HDL 27 mg/dL Low 94 Chol/ HDL Ratio 6.6 ratio 4.0-6.7 VLDL 38 mg/dL High 2-29 LDL (Calc) 112 mg/dL High 20- 95 Laboratory test finding 07/30/2015 [facility] Uric Acid 6.6 mg/dL 2.6-8.4 TSH 1.79 uIU/mL 0.35-4.94 CRP (C-Reactive) 0.28 mg/dL 0.00-0.75 Comprehensive Metabolic (CMP) 04/25/2015 [facility] Sodium 135 mmol/L 134- 142 96 Potassium 5.4 No visible h <SEE NOTE> mmol/L High 3.5-5.2 97 Chloride 101 mmol/L 97-109 Carbon Dioxide 31 mmol/L 24-34 Glucose 99 mg/dL 70-105 BUN 16 mg/dL 6-26 Creatinine 1.0 mg/dL 0.5-1.4 Calcium 9.4 mg/dL 8.5-10.2 Total Protein 7.0 g/dL 6.0-8.0 Albumin 4.5 g/dL 3.6-4.9 Globulin 2.5 g/dL 2.0-3.5 A/G Ratio 1.8 Ratio 1.0-2.2 Total Bilirubin 0.5 mg/dL 0.1-1.3 Alkaline Phosphatase 45 U/L 24-140 Alt 41 U/L 3-42 Ast 24 U/L 8-42 Anion Gap 8 mmol/L 6-14 Mei Egfr >60 >60 98 Non Mei Egfr >60 >60 99 Lipid 04/25/2015 [facility] Cholesterol 168 mg/dL 50-199 Triglycerides 203 mg/dL High 30-200 HDL 28 mg/dL Low 29-71 100 Chol/ HDL Ratio 6.0 ratio 4.0-6.7 VLDL 41 mg/dL High 2-29 LDL (Calc) 99 mg/dL 20-99 101 Laboratory test finding 04/25/2015 [facility] Hemoglobin A1c 5.9 % 4.1-5.9 CBC With Auto Diff 04/25/2015 [facility] WBC 9.2 K/uL 4.1-11.0 RBC 5.41 M/uL 4.60-6.10 Hemoglobin 16.3 gm/dL 13.5-18.0 Hematocrit 48.2 % 41.0-53.0 MCV 89.1 fL 80.0-97.0 MCH 30.2 pg 27.0-32.0 MCHC 33.9 g/dL 32.0-36.0 RDW 14.2 % 11.5-14.5 PLT Count 244 K/ul 140-400 Neutrophil 66.9 % 35.0-75.0 Lymphocyte 22.6 % 16.0-52.0 Monocyte 7.8 % 2.0-10.0 Eosinophil 2.0 % 0.0-5.0 Basophil 0.7 % 0.0-4.0 Abs Neutrophils 6.2 K/uL 2.1-8.0 Abs Lymphocytes 2.1 K/uL 0.8-5.5 Abmon 0.7 K/uL 0.1-1.0 Abs Eosinophils 0.2 K/uL 0.0-0.5 Abs Basophils 0.1 K/uL 0.0-0.3 Comprehensive Metabolic (CMP) 01/24/2015 [facility] Sodium 136 mmol/L 134- 142 Potassium 5.8 mmol/L High 3.5-5.2 Chloride 102 mmol/L 97-109 102 Carbon Dioxide 30 mmol/L 24-34 Glucose 101 mg/dL 70-105 BUN 16 mg/dL 6-26 Creatinine 1.1 mg/dL 0.5-1.4 Calcium 9.7 mg/dL 8.5-10.2 Total Protein 6.8 g/dL 6.0-8.0 Albumin 4.3 g/dL 3.6-4.9 Globulin 2.5 g/dL 2.0-3.5 A/G Ratio 1.7 Ratio 1.0-2.2 Total Bilirubin 0.4 mg/dL 0.1-1.3 Alkaline Phosphatase 45 U/L 24-140 Alt 40 U/L 3-42 Ast 25 U/L 8-42 Anion Gap 10 mmol/L 6-14 Mei Egfr >60 >60 103 Non Mei Egfr >60 >60 104 [facility]9 % 4.1-5.9 Lipid 01/24/2015 [facility] Cholesterol 166 mg/dL 50-199 Triglycerides 210 mg/dL High 30-200 HDL 26 mg/dL Low 29-71 105 Chol/ HDL Ratio 6.4 ratio 4.0-6.7 VLDL 42 mg/dL High 2-29 LDL (Calc) 98 mg/dL 20-99 106 Laboratory test finding 10/26/2014 [facility] Hemoglobin A1c 6.0 % High 4.1- 5.9 107 Comprehensive Metabolic 10/26/2014 [facility] Sodium 137 mmol/L 134-142 (CMP) Potassium 6.1 mmol/L High 3.5-5.2 Chloride 102 mmol/L 97-109 108 Carbon Dioxide 31 mmol/L 24-34 Glucose 122 mg/dL High 70-105 BUN 14 mg/dL 6-26 Creatinine 1.0 mg/dL 0.5-1.4 Calcium 10.0 mg/dL 8.5-10.2 Total Protein 7.0 g/dL 6.0-8.0 Albumin 4.4 g/dL 3.6-4.9 Globulin 2.6 g/dL 2.0-3.5 A/G Ratio 1.7 Ratio 1.0-2.2 Total Bilirubin 0.5 mg/dL 0.1-1.3 Alkaline Phosphatase 45 U/L 24-140 Alt 37 U/L 3-42 Ast 23 U/L 8-42 Anion Gap 10 mmol/L 04-28 Mei Egfr >60 >60 109 Non Mei Egfr >60 >60 110 Lipid 10/26/2014 [facility] Cholesterol 190 mg/dL 50-199 Triglycerides 175 mg/dL 30-200 HDL 33 mg/dL 111 Chol/ HDL Ratio 5.8 ratio 4.0-6.7 VLDL 35 mg/dL High 2- LDL (Calc) 122 mg/dL High 112 Comprehensive Metabolic (CMP) 07/25/2014 [facility] Sodium 134 mmol/L 134- 142 113 Potassium 5.0 mmol/L 3.5-5.2 Chloride 103 mmol/L 97-109 Carbon Dioxide 25 mmol/L 24-34 Glucose 95 mg/dL 70-105 BUN 16 mg/dL 6- Creatinine 0.9 mg/dL 0.5-1.4 Calcium 9.4 mg/dL 8.5-10.2 Total Protein 6.8 g/dL 6.0-8.0 Albumin 4.4 g/dL 3.6-4.9 Globulin 2.4 g/dL 2.0-3.5 A/G Ratio 1.8 Ratio 1.0-2.2 Total Bilirubin 0.4 mg/dL 0.1-1.3 Alkaline Phosphatase 45 U/L 24-140 Alt 41 U/L 3-42 Ast 25 U/L 8-42 Anion Gap 11 mmol/L 04-28 Mei Egfr >60 >60 114 Non Mei Egfr >60 >60 115 Lipid 07/25/2014 [facility] Cholesterol 187 mg/dL 50-199 Triglycerides 155 mg/dL 30-200 HDL 31 mg/dL 116 Chol/ HDL Ratio 6.0 ratio 4.0-6.7 VLDL 31 mg/dL High 2-29 LDL (Calc) 125 mg/dL High 20-99 117 Laboratory test finding 07/25/2014 [facility] CRP (C-Reactive) 0.31 mg/dL 0.00-0.75 Urine Culture Microbiology res <SEE NOTE> 118 Laboratory test 07/25/2014 [facility] Lyme Igm/Igg AB NEGATIVE (Neg) 119, 120 finding Laboratory test 07/25/2014 [facility] Hemoglobin A1c 5.6 % 4.1-5.9 121 finding Laboratory test 04/24/2014 [facility] Hemoglobin A1c 5.9 % 4.1-5.9 122 finding Comprehensive 04/24/2014 [facility] Sodium 142 mmol/L 134-142 Metabolic (CMP) Potassium 6.0 mmol/L High 3.5-5.2 123 Chloride 104 mmol/L 97-109 Carbon Dioxide 30 mmol/L 24-34 Glucose 122 mg/dL High 70-105 BUN 18 mg/dL 6-26 Creatinine 1.1 mg/dL 0.5-1.4 Calcium 10.5 mg/dL High 8.5-10.2 Total Protein 7.1 g/dL 6.0-8.0 Albumin 4.7 g/dL 3.6-4.9 Globulin 2.4 g/dL 2.0-3.5 A/G Ratio 2.0 Ratio 1.0-2.2 Total Bilirubin 0.5 mg/dL 0.1-1.3 Alkaline Phosphatase 45 U/L 24-140 Alt 49 U/L High 3-42 Ast 30 U/L 8-42 Anion Gap 14 mmol/L 6-14 Mei Egfr >60 >60 124 Non Mei Egfr >60 >60 125 Lipid 04/24/2014 [facility] Cholesterol 205 mg/dL High 50-199 Triglycerides 220 mg/dL High 30-200 HDL 30 mg/dL 29-71 126 Chol/ HDL Ratio 6.8 ratio High 4.0-6.7 VLDL 44 mg/dL High 2-29 LDL (Calc) 131 mg/dL High 20-99 127 Laboratory test finding 01/22/2014 [facility] Hemoglobin A1c 6.0 % High 4.1- 5.9 Comprehensive Metabolic 01/22/2014 [facility] Sodium 141 mmol/L 134-142 (CMP) Potassium 5.8 No visible h <SEE NOTE> mmol/L High 3.5-5.2 128 Chloride 104 mmol/L 97-109 Carbon Dioxide 31 mmol/L 24-34 Glucose 110 mg/dL High 70-105 BUN 16 mg/dL 6-26 Creatinine 1.2 mg/dL 0.5-1.4 Calcium 9.9 mg/dL 8.5-10.2 Total Protein 7.2 g/dL 6.0-8.0 Albumin 4.7 g/dL 3.6-4.9 Globulin 2.5 g/dL 2.0-3.5 A/G Ratio 1.9 Ratio 1.0-2.2 Total Bilirubin 0.4 mg/dL 0.1-1.3 Alkaline Phosphatase 51 U/L 24-140 Alt 43 U/L High 3-42 Ast 27 U/L 8-42 Anion Gap 12 mmol/L 04-28 Mei Egfr >60 >60 129 Non Mei Egfr >60 >60 130 Lipid 01/22/2014 [facility] Cholesterol 191 mg/dL 50-199 Triglycerides 205 mg/dL High 30-200 HDL 34 mg/dL 131 Chol/ HDL Ratio 5.6 ratio 4.0-6.7 VLDL 41 mg/dL High 2-29 LDL (Calc) 116 mg/dL High 20-99 132 Comprehensive Metabolic (CMP) 10/24/2013 [facility] Sodium 137 mmol/L 134- 142 133 Potassium 5.5 No visible h <SEE NOTE> mmol/L High 3.5-5.2 134 Chloride 100 mmol/L 97-109 Carbon Dioxide 33 mmol/L 24-34 Glucose 117 mg/dL High 70-105 BUN 16 mg/dL 6-26 Creatinine 1.1 mg/dL 0.5-1.4 Calcium 9.7 mg/dL 8.5-10.2 Total Protein 6.8 g/dL 6.0-8.0 Albumin 4.5 g/dL 3.6-4.9 Globulin 2.3 g/dL 2.0-3.5 A/G Ratio 2.0 Ratio 1.0-2.2 Total Bilirubin 0.6 mg/dL 0.1-1.3 Alkaline Phosphatase 44 U/L 24-140 Alt 43 U/L High 3-42 Ast 24 U/L 8-42 Anion Gap 10 mmol/L 04-28 Mei Egfr >60 >60 135 Non Mei Egfr >60 >60 136 Lipid 10/24/2013 [facility] Cholesterol 195 mg/dL 50-199 Triglycerides 293 mg/dL High 30-200 HDL 30 mg/dL 29-71 137 Chol/ HDL Ratio 6.5 ratio 4.0-6.7 VLDL 59 mg/dL High 2-29 LDL (Calc) 106 mg/dL High 20-99 138 Laboratory test finding 10/24/2013 [facility] Hemoglobin 16.2 gm/dL 13.5- 18.0 Vit D,25 Hydroxy 34 ng/mL 31-100 Comprehensive Metabolic (CMP) 08/09/2013 [facility] Sodium 137 mmol/L 134- 142 139 Potassium 5.5 No visible h <SEE NOTE> mmol/L High 3.5-5.2 140 Chloride 101 mmol/L 97-109 Carbon Dioxide 33 mmol/L 24-34 Glucose 112 mg/dL High 70-105 BUN 14 mg/dL 6-26 Creatinine 1.0 mg/dL 0.5-1.4 Calcium 9.6 mg/dL 8.5-10.2 Total Protein 6.7 g/dL 6.0-8.0 Albumin 4.3 g/dL 3.6-4.9 Globulin 2.4 g/dL 2.0-3.5 A/G Ratio 1.8 Ratio 1.0-2.2 Total Bilirubin 0.5 mg/dL 0.1-1.3 Alkaline Phosphatase 45 U/L 24-140 Alt 48 U/L High 3-42 Ast 26 U/L 8-42 Anion Gap 9 mmol/L 6-14 Mei Egfr >60 >60 141 Non Mei Egfr >60 >60 142 Lipid Treatment 08/09/2013 [facility] Cholesterol 173 mg/dL 50-199 Triglycerides 209 mg/dL High 30-200 HDL 29 mg/dL 143 Chol/ HDL Ratio 6.0 ratio 4.0-6.7 VLDL 42 mg/dL High 2-29 LDL (Calc) 102 mg/dL High 20-99 144 Alt 48 U/L High 3-42 Ast 26 U/L 8-42 Laboratory test finding 08/09/2013 [facility] Hemoglobin A1c 5.8 % 4.1-5.9 Vit D,25 Hydroxy 45 ng/mL 31-100 Laboratory test finding 05/08/2013 [facility] Hemoglobin A1c 6.0 % High 4.1- 5.9 Lipid Treatment 05/08/2013 [facility] Cholesterol 191 mg/dL 50-199 Triglycerides 194 mg/dL 30-200 HDL 32 mg/dL 145 Chol/ HDL Ratio 6.0 ratio 4.0-6.7 VLDL 39 mg/dL High 2-29 LDL (Calc) 120 mg/dL High 20-99 146 Alt 45 U/L High 3-42 Ast 25 U/L 8-42 Laboratory test finding 02/03/2013 [facility] Hemoglobin A1c 6.0 % High 4.1- 5.9 Comprehensive Metabolic 02/03/2013 [facility] Sodium 138 mmol/L 134-142 (CMP) Potassium 5.7 No visible h <SEE NOTE> mmol/L High 3.5-5.2 147 Chloride 103 mmol/L 97-109 Carbon Dioxide 31 mmol/L 24-34 Glucose 109 mg/dL High 70-105 BUN 17 mg/dL 6-26 Creatinine 1.1 mg/dL 0.5-1.4 Calcium 9.7 mg/dL 8.5-10.2 Total Protein 7.1 g/dL 6.0-8.0 Albumin 4.5 g/dL 3.6-4.9 Globulin 2.6 g/dL 2.0-3.5 A/G Ratio 1.7 Ratio 1.0-2.2 Total Bilirubin 0.6 mg/dL 0.1-1.3 Alkaline Phosphatase 47 U/L 24-140 Alt 46 U/L High 3-42 Ast 28 U/L 8-42 Anion Gap 10 mmol/L 6-14 Mei Egfr >60 >60 148 Non Mei Egfr >60 >60 149 Lipid 02/03/2013 [facility] Cholesterol 180 mg/dL 50-199 Triglycerides 184 mg/dL 30-200 HDL 29 mg/dL 29-71 150 Chol/ HDL Ratio 6.2 ratio 4.0-6.7 VLDL 37 mg/dL High 2-29 LDL (Calc) 114 mg/dL 20-129 151 Non HDL Cholesterol 151 mg/dL High 20-129 152 Laboratory test finding 11/04/2012 [facility] Hemoglobin A1c 6.1 % High 4.1- 5.9 153 Lipid 11/04/2012 [facility] Cholesterol 181 mg/dL 50-199 Triglycerides 178 mg/dL 30-200 HDL 32 mg/dL 29-71 154 Chol/ HDL Ratio 5.7 ratio 4.0-6.7 VLDL 36 mg/dL High 2-29 LDL (Calc) 113 mg/dL 20-129 155 Non HDL Cholesterol 149 mg/dL High 20-129 Comprehensive Metabolic (CMP) 11/04/2012 [facility] Sodium 137 mmol/L 134- 142 Potassium 5.7 No visible h <SEE NOTE> mmol/L High 3.5-5.2 156 Chloride 101 mmol/L 97-109 Carbon Dioxide 32 mmol/L 24-34 Glucose 117 mg/dL High 70-105 BUN 18 mg/dL 6-26 Creatinine 1.1 mg/dL 0.5-1.4 Calcium 9.6 mg/dL 8.5-10.2 Total Protein 6.8 g/dL 6.0-8.0 Albumin 4.6 g/dL 3.6-4.9 Globulin 2.2 g/dL 2.0-3.5 A/G Ratio 2.1 Ratio 1.0-2.2 Total Bilirubin 0.5 mg/dL 0.1-1.3 Alkaline Phosphatase 47 U/L 24-140 Alt 40 U/L 3-42 Ast 22 U/L 8-42 Anion Gap 10 mmol/L - Mei Egfr >60 >60 157 Non Mei Egfr >60 >60 158 Laboratory test finding 08/05/2012 [facility] Hemoglobin A1c 5.8 % 4.1-5.9 Comprehensive Metabolic 08/05/2012 [facility] Sodium 142 mmol/L 134-142 (CMP) Potassium 5.2 mmol/L 3.5-5.2 Chloride 102 mmol/L 97-109 Carbon Dioxide 32 mmol/L 24-34 Glucose 104 mg/dL 70-105 BUN 20 mg/dL 6-26 Creatinine 1.0 mg/dL 0.5-1.4 Calcium 9.9 mg/dL 8.5-10.2 Total Protein 7.0 g/dL 6.0-8.0 Albumin 4.7 g/dL 3.6-4.9 Globulin 2.3 g/dL 2.0-3.5 A/G Ratio 2.0 Ratio 1.0-2.2 Total Bilirubin 0.4 mg/dL 0.1-1.3 Alkaline Phosphatase 56 U/L 24-140 Alt 34 U/L 3-42 Ast 23 U/L 8-42 Anion Gap 13 mmol/L 6- Mei Egfr >60 >60 159 Non Mei Egfr >60 >60 160 Laboratory test finding 08/05/2012 [facility] Vit D,25 Hydroxy 53 ng/mL 31- 100 Lipid 08/05/2012 [facility] Cholesterol 166 mg/dL 50-199 Triglycerides 198 mg/dL 30-200 HDL 30 mg/dL 29-71 161 Chol/ HDL Ratio 5.5 ratio 4.0-6.7 VLDL 40 mg/dL High 2-29 LDL (Calc) 96 mg/dL 20-129 162 Laboratory test finding 05/05/2012 [facility] Hemoglobin A1c 5.6 % 4.1-5.9 163 Comprehensive Metabolic 05/05/2012 [facility] Sodium 138 mmol/L 134-142 (CMP) Potassium 5.5 mmol/L High 3.5-5.2 164 Chloride 104 mmol/L 97-109 Carbon Dioxide 32 mmol/L 24-34 Glucose 106 mg/dL High 70-105 BUN 14 mg/dL 6-26 Creatinine 1.1 mg/dL 0.5-1.4 Calcium 9.7 mg/dL 8.5-10.2 Total Protein 6.9 g/dL 6.0-8.0 Albumin 4.6 g/dL 3.6-4.9 Globulin 2.3 g/dL 2.0-3.5 A/G Ratio 2.0 Ratio 1.0-2.2 Total Bilirubin 0.4 mg/dL 0.1-1.3 Alkaline Phosphatase 49 U/L 24-140 Alt 37 U/L 3-42 Ast 22 U/L 8-42 Anion Gap 8 mmol/L 6-14 Mei Egfr >60 >60 165 Non Mei Egfr >60 >60 166 Lipid 05/05/2012 [facility] Cholesterol 170 mg/dL 50-199 Triglycerides 137 mg/dL 30-200 HDL 27 mg/dL Low 29-71 167 Chol/ HDL Ratio 6.3 ratio 4.0-6.7 VLDL 27 mg/dL 2-29 LDL (Calc) 116 mg/dL 20-129 168 Laboratory test finding 02/03/2012 [facility] Hemoglobin A1c 6.2 % High 4.1- 5.9 Laboratory test finding 11/03/2011 [facility] Hemoglobin A1c 6.0 % High 4.1- 5.9 Laboratory test finding 07/24/2011 [facility] Hemoglobin A1c 5.9 % 4.1-5.9 CRP (C-Reactive) 0.29 mg/dL 0.00-0.75 Comprehensive Metabolic (CMP) 07/24/2011 [facility] Sodium 138 mmol/L 135- 144 Potassium 5.1 mmol/L 3.6-5.2 Chloride 103 mmol/L 97-110 Carbon Dioxide 30 mmol/L 23-32 Glucose 106 mg/dL High 70-105 BUN 14 mg/dL 6-22 Creatinine 1.0 mg/dL 0.5-1.3 Calcium 9.5 mg/dL 8.6-10.2 BUN/CR 14 ratio 12-20 Total Protein 6.9 g/dL 5.8-7.8 Albumin 4.2 g/dL 3.5-4.8 Globulin 2.7 g/dL 2.0-3.5 A/G Ratio 1.6 Ratio 1.0-2.2 Total Bilirubin 0.8 mg/dL 0.3-1.2 Alkaline Phosphatase 54 U/L 24-140 Alt 46 U/L High 5-45 Ast 27 U/L 12-40 Anion Gap 10 mmol/L 8-16 Non Mei Egfr >60 >60 169 Mei Egfr >60 >60 170 Laboratory test finding 07/24/2011 [facility] Rheumatoid Factor <15 IU/mL ( 0-15) 171 CBC With Auto Diff 07/24/2011 [facility] WBC 7.4 K/uL 4.1-11.0 RBC 5.06 M/uL 4.60-6.10 Hemoglobin 16.1 gm/dL 13.5-18.0 Hematocrit 46.4 % 41.0-53.0 MCV 91.8 fL 80.0-97.0 MCH 31.9 pg 27.0-32.0 MCHC 34.7 g/dL 32.0-36.0 RDW 13.7 % 11.5-14.5 PLT Count 223 K/ul 140-400 Neutrophil 63.4 % 35.0-75.0 Lymphocyte 22.7 % 16.0-52.0 Monocyte 6.2 % 2.0-10.0 Eosinophil 7.2 % High 0.0-5.0 Basophil 0.5 % 0.0-4.0 Abs Neutrophils 4.7 K/uL 2.1-8.0 Abs Lymphocytes 1.7 K/uL 0.8-5.5 Abs Monocytes 0.5 K/uL 0.1-1.0 Abs Eosinophils 0.5 K/uL 0.0-0.5 Abs Basophils 0.0 K/uL 0.0-0.3 Laboratory test finding 07/24/2011 [facility] Screen Neg Neg [facility] 6.6 % High 4.1- 5.9 172 Basic (BMP) 04/23/2011 [facility] Sodium 140 mmol/L 135-144 173 Potassium 5.8 No visible h <SEE NOTE> mmol/L High 3.6-5.2 174 Chloride 103 mmol/L 97-110 Carbon Dioxide 30 mmol/L 23-32 Glucose 124 mg/dL High 70-105 BUN 12 mg/dL 6-22 Creatinine 1.0 mg/dL 0.5-1.3 Calcium 9.7 mg/dL 8.6-10.2 Anion Gap 13 mmol/L 8-16 BUN/CR 12 ratio 12-20 Non Mei Egfr >60 >60 175 Mei Egfr >60 >60 176 Lipid Treatment 04/23/2011 [facility] Cholesterol 188 mg/dL 50-199 Triglycerides 161 mg/dL High 10-150 HDL 28 mg/dL Low 29-71 177 Chol/ HDL Ratio 6.7 ratio 4.0-6.7 VLDL 32 mg/dL High 2-29 LDL (Calc) 128 mg/dL 20-129 178 Alt 58 U/L High 5-45 Ast 38 U/L 12-40 Laboratory test 06/27/2009 [facility] (Do not Use) Vitamin D, 25 35 ng/mL 31-100 179 finding [facility] [place], [place] [id number] [phone] Lipid Panel 04/29/2009 [facility] (Do not Use) Cholesterol 176 mg/dL 50 -199 180, [facility] [address] [place], [place] [id number] [phone] Triglycerides 154 mg/dL High 10-150 HDL 24 mg/dL Low 29-71 182 Chol/HDL Ratio 7.3 Ratio High 4.0-6.7 183 VLDL 31 mg/dL High 2-29 LDL (Calc) 121 mg/dL 20-129 184 Lipid Panel 2009 [facility] (Do not Use) Cholesterol 221 mg/dL High 50-199 185 [facility] [place], [place] [id number] [phone] Triglycerides 422 mg/dL High 10-150 HDL 25 mg/dL Low 29-71 186 Chol/HDL Ratio 8.8 Ratio High 4.0-6.7 187 VLDL UNABLE TO CALCUL <SEE NOTE> mg/dL Abnormal 188 LDL (Calc) Triglyceride ramirez <SEE NOTE> mg/dL 189 Laboratory test 2009 [facility] (Do not Use) Hemoglobin A1c 6.4 % 4.1-6.5 finding [facility] [place] [address] [phone] Esr 2 MM/HR 0-15 CMP 2009 [facility] (Do not Use) Sodium 138 mmol/L 135-144 [facility] [place] [address] [phone] Potassium 5.0 mmol/L 3.6-5.2 Chloride 104 mmol/L 97-110 Carbon Dioxide 25 mmol/L 23-33 Glucose 88 mg/dL 70-105 BUN 15 mg/dL 6-22 Creatinine 1.0 mg/dL 0.5-1.3 BUN/CR 15 Ratio 12.0-20.0 Calcium 9.7 mg/dL 8.6-10.2 Total Protein 6.6 g/dL 5.8-7.8 Albumin 4.1 g/dL 3.5-4.8 Globulin 2.5 g/dL 2.0-3.5 A/G Ratio 1.6 Ratio 1.0-2.2 Total Bilirubin 0.6 mg/dL 0.3-1.2 Alkaline Phosphatase 61 U/L 24-140 Alt 67 U/L High 4-45 Ast 38 U/L 12-40 Anion Gap 14 mmol/L 8-16 GFR Calculation > 60 mL/min 60-175 190 GFR For > 60 mL/min 60-175 191 Laboratory test 2009 [facility] (Do not Use) Vitamin D, 25 16 ng/mL Low 31-100 finding [facility] [place] [address] [phone] TSH 1.81 uIU/ml 0.34-5.60 Direct LDL 148 mg/dL High 20-129 1 This sample is drawn by:ss/elementary supervisor 2 Updated reference range on new analyzer 3 Updated reference range on new analyzer 4 Updated Reference Range 5 Concerning GFR Guidelines for Americans: Normal function or mild renal disease, if clinically at risk: >/=60 mL/min Moderately decreased: 30-59 Severely decreased: 15-29 Renal failure: <15 6 Concerning GFR Guidelines: Normal function or mild renal disease, if clinically at risk: >/=60 mL/min Moderately decreased: 30-59 Severely decreased: 15-29 Renal failure: <15 Glomerular Filtration Rate (GFR) is estimated based on the MDRD equation, which assumes a steady state for creatinine as recommended by the National Kidney Disease Education Program in conjunction with the National Institutes of Health and the National Kidney Foundation. Clinical conditions in which it may be necessary to measure GFR by using clearance methods include extremes of age and body size, severe malnutrition or obesity, diseases of skeletal muscle, paraplegia or quadriplegia, vegetarian diet, rapidly changing kidney function, and calculation of the dose of potentially toxic drugs that are excreted by the kidneys. 7 Per NCEP ATP III Guidelines: Results lower than 40 mg/dL are suggestive of increased risk for coronary artery disease. Results > or=to 60 mg/dL are considered a negative risk factor. 8 Per NCEP ATP III Guidelines: Normal Population <130 Patients with medical conditions: CHD/DM Optimal: <100 Borderline high: 130-159 High: 160-189 Very high: >189 9 This sample is drawn by:keo/brent 10 A Negative serologic test for Lyme Disease indicates no serologic evidence of infection with B burgdorferi at the time this specimen was collected. A repeat specimen should be collected in 2 to 4 weeks if clinically indicated. Unless otherwise specified, testing performed by [facility] [address] [place] [id number] 11 Updated reference range on new analyzer 12 Updated reference range on new analyzer 13 Concerning GFR Guidelines for Americans: Normal function or mild renal disease, if clinically at risk: >/=60 mL/min Moderately decreased: 30-59 Severely decreased: 15-29 Renal failure: <15 14 Concerning GFR Guidelines: Normal function or mild renal disease, if clinically at risk: >/=60 mL/min Moderately decreased: 30-59 Severely decreased: 15-29 Renal failure: <15 Glomerular Filtration Rate (GFR) is estimated based on the MDRD equation, which assumes a steady state for creatinine as recommended by the National Kidney Disease Education Program in conjunction with the National Institutes of Health and the National Kidney Foundation. Clinical conditions in which it may be necessary to measure GFR by using clearance methods include extremes of age and body size, severe malnutrition or obesity, diseases of skeletal muscle, paraplegia or quadriplegia, vegetarian diet, rapidly changing kidney function, and calculation of the dose of potentially toxic drugs that are excreted by the kidneys. 15 Updated Reference Range 16 Per NCEP ATP III Guidelines: Results lower than 40 mg/dL are suggestive of increased risk for coronary artery disease. Results > or=to 60 mg/dL are considered a negative risk factor. 17 Per NCEP ATP III Guidelines: Normal Population <130 Patients with medical conditions: CHD/DM Optimal: <100 Borderline high: 130-159 High: 160-189 Very high: >189 18 Updated reference range on new analyzer 19 Updated reference range on new analyzer 20 Concerning GFR Guidelines for Americans: Normal function or mild renal disease, if clinically at risk: >/=60 mL/min Moderately decreased: 30-59 Severely decreased: 15-29 Renal failure: <15 21 Concerning GFR Guidelines: Normal function or mild renal disease, if clinically at risk: >/=60 mL/min Moderately decreased: 30-59 Severely decreased: 15-29 Renal failure: <15 Glomerular Filtration Rate (GFR) is estimated based on the MDRD equation, which assumes a steady state for creatinine as recommended by the National Kidney Disease Education Program in conjunction with the National Institutes of Health and the National Kidney Foundation. Clinical conditions in which it may be necessary to measure GFR by using clearance methods include extremes of age and body size, severe malnutrition or obesity, diseases of skeletal muscle, paraplegia or quadriplegia, vegetarian diet, rapidly changing kidney function, and calculation of the dose of potentially toxic drugs that are excreted by the kidneys. 22 Updated Reference Range 23 Updated reference range on new analyzer 24 Updated reference range on new analyzer 25 Concerning GFR Guidelines for Americans: Normal function or mild renal disease, if clinically at risk: >/=60 mL/min Moderately decreased: 30-59 Severely decreased: 15-29 Renal failure: <15 26 Concerning GFR Guidelines: Normal function or mild renal disease, if clinically at risk: >/=60 mL/min Moderately decreased: 30-59 Severely decreased: 15-29 Renal failure: <15 Glomerular Filtration Rate (GFR) is estimated based on the MDRD equation, which assumes a steady state for creatinine as recommended by the National Kidney Disease Education Program in conjunction with the National Institutes of Health and the National Kidney Foundation. Clinical conditions in which it may be necessary to measure GFR by using clearance methods include extremes of age and body size, severe malnutrition or obesity, diseases of skeletal muscle, paraplegia or quadriplegia, vegetarian diet, rapidly changing kidney function, and calculation of the dose of potentially toxic drugs that are excreted by the kidneys. 27 Updated Reference Range 28 Per NCEP ATP III Guidelines: Results lower than 40 mg/dL are suggestive of increased risk for coronary artery disease. Results > or=to 60 mg/dL are considered a negative risk factor. 29 Per NCEP ATP III Guidelines: Normal Population <130 Patients with medical conditions: CHD/DM Optimal: <100 Borderline high: 130-159 High: 160-189 Very high: >189 30 Updated reference range on new analyzer 31 Updated reference range on new analyzer 32 Concerning GFR Guidelines for Americans: Normal function or mild renal disease, if clinically at risk: >/=60 mL/min Moderately decreased: 30-59 Severely decreased: 15-29 Renal failure: <15 33 Concerning GFR Guidelines: Normal function or mild renal disease, if clinically at risk: >/=60 mL/min Moderately decreased: 30-59 Severely decreased: 15-29 Renal failure: <15 Glomerular Filtration Rate (GFR) is estimated based on the MDRD equation, which assumes a steady state for creatinine as recommended by the National Kidney Disease Education Program in conjunction with the National Institutes of Health and the National Kidney Foundation. Clinical conditions in which it may be necessary to measure GFR by using clearance methods include extremes of age and body size, severe malnutrition or obesity, diseases of skeletal muscle, paraplegia or quadriplegia, vegetarian diet, rapidly changing kidney function, and calculation of the dose of potentially toxic drugs that are excreted by the kidneys. 34 Updated Reference Range 35 Updated reference range on new analyzer 36 Critical Result S_[id number] Verified by repeat analysis and Called to: ORACIO HURLEY at: 10/26/2017 19:25:30 by:MAGALY DICK 37 Updated reference range on new analyzer 38 Concerning GFR Guidelines for Americans: Normal function or mild renal disease, if clinically at risk: >/=60 mL/min Moderately decreased: 30-59 Severely decreased: 15-29 Renal failure: <15 39 Concerning GFR Guidelines: Normal function or mild renal disease, if clinically at risk: >/=60 mL/min Moderately decreased: 30-59 Severely decreased: 15-29 Renal failure: <15 Glomerular Filtration Rate (GFR) is estimated based on the MDRD equation, which assumes a steady state for creatinine as recommended by the National Kidney Disease Education Program in conjunction with the National Institutes of Health and the National Kidney Foundation. Clinical conditions in which it may be necessary to measure GFR by using clearance methods include extremes of age and body size, severe malnutrition or obesity, diseases of skeletal muscle, paraplegia or quadriplegia, vegetarian diet, rapidly changing kidney function, and calculation of the dose of potentially toxic drugs that are excreted by the kidneys. 40 Updated reference range on new analyzer 41 Per NCEP ATP III Guidelines: Results lower than 40 mg/dL are suggestive of increased risk for coronary artery disease. Results > or=to 60 mg/dL are considered a negative risk factor. 42 Per NCEP ATP III Guidelines: Normal Population <130 Patients with medical conditions: CHD/DM Optimal: <100 Borderline high: 130-159 High: 160-189 Very high: >189 43 This sample is drawn by:PHIL/LOLITA 44 Updated reference range on new analyzer 45 Updated reference range on new analyzer 46 Concerning GFR Guidelines for Americans: Normal function or mild renal disease, if clinically at risk: >/=60 mL/min Moderately decreased: 30-59 Severely decreased: 15-29 Renal failure: <15 47 Concerning GFR Guidelines: Normal function or mild renal disease, if clinically at risk: >/=60 mL/min Moderately decreased: 30-59 Severely decreased: 15-29 Renal failure: <15 Glomerular Filtration Rate (GFR) is estimated based on the MDRD equation, which assumes a steady state for creatinine as recommended by the National Kidney Disease Education Program in conjunction with the National Institutes of Health and the National Kidney Foundation. Clinical conditions in which it may be necessary to measure GFR by using clearance methods include extremes of age and body size, severe malnutrition or obesity, diseases of skeletal muscle, paraplegia or quadriplegia, vegetarian diet, rapidly changing kidney function, and calculation of the dose of potentially toxic drugs that are excreted by the kidneys. 48 Updated reference range on new analyzer 49 Per NCEP ATP III Guidelines: Results lower than 40 mg/dL are suggestive of increased risk for coronary artery disease. Results > or=to 60 mg/dL are considered a negative risk factor. 50 Per NCEP ATP III Guidelines: Normal Population <130 Patients with medical conditions: CHD/DM Optimal: <100 Borderline high: 130-159 High: 160-189 Very high: >189 51 Per NCEP ATP III Guidelines: Results lower than 40 mg/dL are suggestive of increased risk for coronary artery disease. Results > or=to 60 mg/dL are considered a negative risk factor. 52 Per NCEP ATP III Guidelines: Normal Population <130 Patients with medical conditions: CHD/DM Optimal: <100 Borderline high: 130-159 High: 160-189 Very high: >189 53 Updated reference range on new analyzer 54 Updated reference range on new analyzer 55 Concerning GFR Guidelines for Americans: Normal function or mild renal disease, if clinically at risk: >/=60 mL/min Moderately decreased: 30-59 Severely decreased: 15-29 Renal failure: <15 56 Concerning GFR Guidelines: Normal function or mild renal disease, if clinically at risk: >/=60 mL/min Moderately decreased: 30-59 Severely decreased: 15-29 Renal failure: <15 Glomerular Filtration Rate (GFR) is estimated based on the MDRD equation, which assumes a steady state for creatinine as recommended by the National Kidney Disease Education Program in conjunction with the National Institutes of Health and the National Kidney Foundation. Clinical conditions in which it may be necessary to measure GFR by using clearance methods include extremes of age and body size, severe malnutrition or obesity, diseases of skeletal muscle, paraplegia or quadriplegia, vegetarian diet, rapidly changing kidney function, and calculation of the dose of potentially toxic drugs that are excreted by the kidneys. 57 Updated reference range on new analyzer 58 Per NCEP ATP III Guidelines: Results lower than 40 mg/dL are suggestive of increased risk for coronary artery disease. Results > or=to 60 mg/dL are considered a negative risk factor. 59 Per NCEP ATP III Guidelines: Normal Population <130 Patients with medical conditions: CHD/DM Optimal: <100 Borderline high: 130-159 High: 160-189 Very high: >189 60 Unable to calculate ratio. Microalbumin <5.0 61 Updated reference range on new analyzer 62 5.7 No visible hemolysis. 63 Updated reference range on new analyzer 64 Concerning GFR Guidelines for Americans: Normal function or mild renal disease, if clinically at risk: >/=60 mL/min Moderately decreased: 30-59 Severely decreased: 15-29 Renal failure: <15 65 Concerning GFR Guidelines: Normal function or mild renal disease, if clinically at risk: >/=60 mL/min Moderately decreased: 30-59 Severely decreased: 15-29 Renal failure: <15 Glomerular Filtration Rate (GFR) is estimated based on the MDRD equation, which assumes a steady state for creatinine as recommended by the National Kidney Disease Education Program in conjunction with the National Institutes of Health and the National Kidney Foundation. Clinical conditions in which it may be necessary to measure GFR by using clearance methods include extremes of age and body size, severe malnutrition or obesity, diseases of skeletal muscle, paraplegia or quadriplegia, vegetarian diet, rapidly changing kidney function, and calculation of the dose of potentially toxic drugs that are excreted by the kidneys. 66 Updated reference range on new analyzer 67 Per NCEP ATP III Guidelines: Results lower than 40 mg/dL are suggestive of increased risk for coronary artery disease. Results > or=to 60 mg/dL are considered a negative risk factor. 68 Per NCEP ATP III Guidelines: Normal Population <130 Patients with medical conditions: CHD/DM Optimal: <100 Borderline high: 130-159 High: 160-189 Very high: >189 69 5.5 No visible hemolysis. 70 Concerning GFR Guidelines for Americans: Normal function or mild renal disease, if clinically at risk: >/=60 mL/min Moderately decreased: 30-59 Severely decreased: 15-29 Renal failure: <15 71 Concerning GFR Guidelines: Normal function or mild renal disease, if clinically at risk: >/=60 mL/min Moderately decreased: 30-59 Severely decreased: 15-29 Renal failure: <15 Glomerular Filtration Rate (GFR) is estimated based on the MDRD equation, which assumes a steady state for creatinine as recommended by the National Kidney Disease Education Program in conjunction with the National Institutes of Health and the National Kidney Foundation. Clinical conditions in which it may be necessary to measure GFR by using clearance methods include extremes of age and body size, severe malnutrition or obesity, diseases of skeletal muscle, paraplegia or quadriplegia, vegetarian diet, rapidly changing kidney function, and calculation of the dose of potentially toxic drugs that are excreted by the kidneys. 72 5.9 No visible hemolysis. 73 Concerning GFR Guidelines for Americans: Normal function or mild renal disease, if clinically at risk: >/=60 mL/min Moderately decreased: 30-59 Severely decreased: 15-29 Renal failure: <15 74 Concerning GFR Guidelines: Normal function or mild renal disease, if clinically at risk: >/=60 mL/min Moderately decreased: 30-59 Severely decreased: 15-29 Renal failure: <15 Glomerular Filtration Rate (GFR) is estimated based on the MDRD equation, which assumes a steady state for creatinine as recommended by the National Kidney Disease Education Program in conjunction with the National Institutes of Health and the National Kidney Foundation. Clinical conditions in which it may be necessary to measure GFR by using clearance methods include extremes of age and body size, severe malnutrition or obesity, diseases of skeletal muscle, paraplegia or quadriplegia, vegetarian diet, rapidly changing kidney function, and calculation of the dose of potentially toxic drugs that are excreted by the kidneys. 75 Per NCEP ATP III Guidelines: Results lower than 40 mg/dL are suggestive of increased risk for coronary artery disease. Results > or=to 60 mg/dL are considered a negative risk factor. 76 Per NCEP ATP III Guidelines: Normal Population <130 Patients with medical conditions: CHD/DM Optimal: <100 Borderline high: 130-159 High: 160-189 Very high: >189 77 5.6 No visible hemolysis. 78 Concerning GFR Guidelines for Americans: Normal function or mild renal disease, if clinically at risk: >/=60 mL/min Moderately decreased: 30-59 Severely decreased: 15-29 Renal failure: <15 79 Concerning GFR Guidelines: Normal function or mild renal disease, if clinically at risk: >/=60 mL/min Moderately decreased: 30-59 Severely decreased: 15-29 Renal failure: <15 Glomerular Filtration Rate (GFR) is estimated based on the MDRD equation, which assumes a steady state for creatinine as recommended by the National Kidney Disease Education Program in conjunction with the National Institutes of Health and the National Kidney Foundation. Clinical conditions in which it may be necessary to measure GFR by using clearance methods include extremes of age and body size, severe malnutrition or obesity, diseases of skeletal muscle, paraplegia or quadriplegia, vegetarian diet, rapidly changing kidney function, and calculation of the dose of potentially toxic drugs that are excreted by the kidneys. 80 Per NCEP ATP III Guidelines: Results lower than 40 mg/dL are suggestive of increased risk for coronary artery disease. Results > or=to 60 mg/dL are considered a negative risk factor. 81 Per NCEP ATP III Guidelines: Normal Population <130 Patients with medical conditions: CHD/DM Optimal: <100 Borderline high: 130-159 High: 160-189 Very high: >189 82 Concerning GFR Guidelines for Americans: Normal function or mild renal disease, if clinically at risk: >/=60 mL/min Moderately decreased: 30-59 Severely decreased: 15-29 Renal failure: <15 83 Concerning GFR Guidelines: Normal function or mild renal disease, if clinically at risk: >/=60 mL/min Moderately decreased: 30-59 Severely decreased: 15-29 Renal failure: <15 Glomerular Filtration Rate (GFR) is estimated based on the MDRD equation, which assumes a steady state for creatinine as recommended by the National Kidney Disease Education Program in conjunction with the National Institutes of Health and the National Kidney Foundation. Clinical conditions in which it may be necessary to measure GFR by using clearance methods include extremes of age and body size, severe malnutrition or obesity, diseases of skeletal muscle, paraplegia or quadriplegia, vegetarian diet, rapidly changing kidney function, and calculation of the dose of potentially toxic drugs that are excreted by the kidneys. 84 Per NCEP ATP III Guidelines: Results lower than 40 mg/dL are suggestive of increased risk for coronary artery disease. Results > or=to 60 mg/dL are considered a negative risk factor. 85 Per NCEP ATP III Guidelines: Normal Population <130 Patients with medical conditions: CHD/DM Optimal: <100 Borderline high: 130-159 High: 160-189 Very high: >189 86 This sample is drawn by:kd/elementary supervisor 87 6.4 No visible hemolysis. Results verified by repeat analysis 88 Concerning GFR Guidelines for Americans: Normal function or mild renal disease, if clinically at risk: >/=60 mL/min Moderately decreased: 30-59 Severely decreased: 15-29 Renal failure: <15 89 Concerning GFR Guidelines: Normal function or mild renal disease, if clinically at risk: >/=60 mL/min Moderately decreased: 30-59 Severely decreased: 15-29 Renal failure: <15 Glomerular Filtration Rate (GFR) is estimated based on the MDRD equation, which assumes a steady state for creatinine as recommended by the National Kidney Disease Education Program in conjunction with the National Institutes of Health and the National Kidney Foundation. Clinical conditions in which it may be necessary to measure GFR by using clearance methods include extremes of age and body size, severe malnutrition or obesity, diseases of skeletal muscle, paraplegia or quadriplegia, vegetarian diet, rapidly changing kidney function, and calculation of the dose of potentially toxic drugs that are excreted by the kidneys. 90 Per NCEP ATP III Guidelines: Results lower than 40 mg/dL are suggestive of increased risk for coronary artery disease. Results > or=to 60 mg/dL are considered a negative risk factor. 91 Per NCEP ATP III Guidelines: Normal Population <130 Patients with medical conditions: CHD/DM Optimal: <100 Borderline high: 130-159 High: 160-189 Very high: >189 92 Concerning GFR Guidelines for Americans: Normal function or mild renal disease, if clinically at risk: >/=60 mL/min Moderately decreased: 30-59 Severely decreased: 15-29 Renal failure: <15 93 Concerning GFR Guidelines: Normal function or mild renal disease, if clinically at risk: >/=60 mL/min Moderately decreased: 30-59 Severely decreased: 15-29 Renal failure: <15 Glomerular Filtration Rate (GFR) is estimated based on the MDRD equation, which assumes a steady state for creatinine as recommended by the National Kidney Disease Education Program in conjunction with the National Institutes of Health and the National Kidney Foundation. Clinical conditions in which it may be necessary to measure GFR by using clearance methods include extremes of age and body size, severe malnutrition or obesity, diseases of skeletal muscle, paraplegia or quadriplegia, vegetarian diet, rapidly changing kidney function, and calculation of the dose of potentially toxic drugs that are excreted by the kidneys. 94 Per NCEP ATP III Guidelines: Results lower than 40 mg/dL are suggestive of increased risk for coronary artery disease. Results > or=to 60 mg/dL are considered a negative risk factor. 95 Per NCEP ATP III Guidelines: Normal Population <130 Patients with medical conditions: CHD/DM Optimal: <100 Borderline high: 130-159 High: 160-189 Very high: >189 96 This sample is drawn by:PHIL/ESCALATION ENGINEER 97 5.4 No visible hemolysis. 98 Concerning GFR Guidelines for Americans: Normal function or mild renal disease, if clinically at risk: >/=60 mL/min Moderately decreased: 30-59 Severely decreased: 15-29 Renal failure: <15 99 Concerning GFR Guidelines: Normal function or mild renal disease, if clinically at risk: >/=60 mL/min Moderately decreased: 30-59 Severely decreased: 15-29 Renal failure: <15 Glomerular Filtration Rate (GFR) is estimated based on the MDRD equation, which assumes a steady state for creatinine as recommended by the National Kidney Disease Education Program in conjunction with the National Institutes of Health and the National Kidney Foundation. Clinical conditions in which it may be necessary to measure GFR by using clearance methods include extremes of age and body size, severe malnutrition or obesity, diseases of skeletal muscle, paraplegia or quadriplegia, vegetarian diet, rapidly changing kidney function, and calculation of the dose of potentially toxic drugs that are excreted by the kidneys. 100 Per NCEP ATP III Guidelines: Results lower than 40 mg/dL are suggestive of increased risk for coronary artery disease. Results > or=to 60 mg/dL are considered a negative risk factor. 101 Per NCEP ATP III Guidelines: Normal Population <130 Patients with medical conditions: CHD/DM Optimal: <100 Borderline high: 130-159 High: 160-189 Very high: >189 102 No visible hemolysis, only one tube sent for analysis. 103 Concerning GFR Guidelines for Americans: Normal function or mild renal disease, if clinically at risk: >/=60 mL/min Moderately decreased: 30-59 Severely decreased: 15-29 Renal failure: <15 104 Concerning GFR Guidelines: Normal function or mild renal disease, if clinically at risk: >/=60 mL/min Moderately decreased: 30-59 Severely decreased: 15-29 Renal failure: <15 Glomerular Filtration Rate (GFR) is estimated based on the MDRD equation, which assumes a steady state for creatinine as recommended by the National Kidney Disease Education Program in conjunction with the National Institutes of Health and the National Kidney Foundation. Clinical conditions in which it may be necessary to measure GFR by using clearance methods include extremes of age and body size, severe malnutrition or obesity, diseases of skeletal muscle, paraplegia or quadriplegia, vegetarian diet, rapidly changing kidney function, and calculation of the dose of potentially toxic drugs that are excreted by the kidneys. 105 Per NCEP ATP III Guidelines: Results lower than 40 mg/dL are suggestive of increased risk for coronary artery disease. Results > or=to 60 mg/dL are considered a negative risk factor. 106 Per NCEP ATP III Guidelines: Normal Population <130 Patients with medical conditions: CHD/DM Optimal: <100 Borderline high: 130-159 High: 160-189 Very high: >189 107 This sample is drawn by:kd/elementary supervisor 108 No visible hemolysis.,Results verified by repeat analysis, only one tube sent for analysis. 109 Concerning GFR Guidelines for Americans: Normal function or mild renal disease, if clinically at risk: >/=60 mL/min Moderately decreased: 30-59 Severely decreased: 15-29 Renal failure: <15 110 Concerning GFR Guidelines: Normal function or mild renal disease, if clinically at risk: >/=60 mL/min Moderately decreased: 30-59 Severely decreased: 15-29 Renal failure: <15 Glomerular Filtration Rate (GFR) is estimated based on the MDRD equation, which assumes a steady state for creatinine as recommended by the National Kidney Disease Education Program in conjunction with the National Institutes of Health and the National Kidney Foundation. Clinical conditions in which it may be necessary to measure GFR by using clearance methods include extremes of age and body size, severe malnutrition or obesity, diseases of skeletal muscle, paraplegia or quadriplegia, vegetarian diet, rapidly changing kidney function, and calculation of the dose of potentially toxic drugs that are excreted by the kidneys. 111 Per NCEP ATP III Guidelines: Results lower than 40 mg/dL are suggestive of increased risk for coronary artery disease. Results > or=to 60 mg/dL are considered a negative risk factor. 112 Per NCEP ATP III Guidelines: Normal Population <130 Patients with medical conditions: CHD/DM Optimal: <100 Borderline high: 130-159 High: 160-189 Very high: >189 113 This sample is drawn by:LS/ESCALATION ENGINEER Fastin hours Fastin hours Fasting : 12 hours This sample is drawn by:LS/ESCALATION ENGINEER Fastin hours This sample is drawn by:LS/ESCALATION ENGINEER Fastin hours This sample is drawn by:LS/ESCALATION ENGINEER Fastin hours 114 Concerning GFR Guidelines for Americans: Normal function or mild renal disease, if clinically at risk: >/=60 mL/min Moderately decreased: 30-59 Severely decreased: 15-29 Renal failure: <15 115 Concerning GFR Guidelines: Normal function or mild renal disease, if clinically at risk: >/=60 mL/min Moderately decreased: 30-59 Severely decreased: 15-29 Renal failure: <15 Glomerular Filtration Rate (GFR) is estimated based on the MDRD equation, which assumes a steady state for creatinine as recommended by the National Kidney Disease Education Program in conjunction with the National Institutes of Health and the National Kidney Foundation. Clinical conditions in which it may be necessary to measure GFR by using clearance methods include extremes of age and body size, severe malnutrition or obesity, diseases of skeletal muscle, paraplegia or quadriplegia, vegetarian diet, rapidly changing kidney function, and calculation of the dose of potentially toxic drugs that are excreted by the kidneys. 116 Per NCEP ATP III Guidelines: Results lower than 40 mg/dL are suggestive of increased risk for coronary artery disease. Results > or=to 60 mg/dL are considered a negative risk factor. 117 Per NCEP ATP III Guidelines: Normal Population <130 Patients with medical conditions: CHD/DM Optimal: <100 Borderline high: 130-159 High: 160-189 Very high: >189 118 Microbiology results SOURCE [facility] FINAL RESULT No growth 119 This sample is drawn by:LS/ESCALATION ENGINEER Fastin hours 120 A Negative serologic test for Lyme Disease indicates no serologic evidence of infection with B burgdorferi at the time this specimen was collected. A repeat specimen should be collected in 2 to 4 weeks if clinically indicated. Unless otherwise specified, testing performed by [facility] [address] [place] [id number] 121 This sample is drawn by:LS/ESCALATION ENGINEER Fastin hours Fastin hours Fasting : 12 hours This sample is drawn by:LS/ESCALATION ENGINEER Fastin hours This sample is drawn by:LS/ESCALATION ENGINEER Fastin hours This sample is drawn by:LS/ESCALATION ENGINEER Fastin hours 122 This sample is drawn by:LS/ESCALATION ENGINEER 123 Results verified by repeat analysis,No visible hemolysis. 124 Concerning GFR Guidelines for Americans: Normal function or mild renal disease, if clinically at risk: >/=60 mL/min Moderately decreased: 30-59 Severely decreased: 15-29 Renal failure: <15 125 Concerning GFR Guidelines: Normal function or mild renal disease, if clinically at risk: >/=60 mL/min Moderately decreased: 30-59 Severely decreased: 15-29 Renal failure: <15 Glomerular Filtration Rate (GFR) is estimated based on the MDRD equation, which assumes a steady state for creatinine as recommended by the National Kidney Disease Education Program in conjunction with the National Institutes of Health and the National Kidney Foundation. Clinical conditions in which it may be necessary to measure GFR by using clearance methods include extremes of age and body size, severe malnutrition or obesity, diseases of skeletal muscle, paraplegia or quadriplegia, vegetarian diet, rapidly changing kidney function, and calculation of the dose of potentially toxic drugs that are excreted by the kidneys. 126 Per NCEP ATP III Guidelines: Results lower than 40 mg/dL are suggestive of increased risk for coronary artery disease. Results > or=to 60 mg/dL are considered a negative risk factor. 127 Per NCEP ATP III Guidelines: Normal Population <130 Patients with medical conditions: CHD/DM Optimal: <100 Borderline high: 130-159 High: 160-189 Very high: >189 128 5.8 No visible hemolysis. 129 Concerning GFR Guidelines for Americans: Normal function or mild renal disease, if clinically at risk: >/=60 mL/min Moderately decreased: 30-59 Severely decreased: 15-29 Renal failure: <15 130 Concerning GFR Guidelines: Normal function or mild renal disease, if clinically at risk: >/=60 mL/min Moderately decreased: 30-59 Severely decreased: 15-29 Renal failure: <15 Glomerular Filtration Rate (GFR) is estimated based on the MDRD equation, which assumes a steady state for creatinine as recommended by the National Kidney Disease Education Program in conjunction with the National Institutes of Health and the National Kidney Foundation. Clinical conditions in which it may be necessary to measure GFR by using clearance methods include extremes of age and body size, severe malnutrition or obesity, diseases of skeletal muscle, paraplegia or quadriplegia, vegetarian diet, rapidly changing kidney function, and calculation of the dose of potentially toxic drugs that are excreted by the kidneys. 131 Per NCEP ATP III Guidelines: Results lower than 40 mg/dL are suggestive of increased risk for coronary artery disease. Results > or=to 60 mg/dL are considered a negative risk factor. 132 Per NCEP ATP III Guidelines: Normal Population <130 Patients with medical conditions: CHD/DM Optimal: <100 Borderline high: 130-159 High: 160-189 Very high: >189 133 This sample is drawn by:KD/FIRE CONTROL OFFICER 134 5.5 No visible hemolysis. 135 Concerning GFR Guidelines for Americans: Normal function or mild renal disease, if clinically at risk: >/=60 mL/min Moderately decreased: 30-59 Severely decreased: 15-29 Renal failure: <15 136 Concerning GFR Guidelines: Normal function or mild renal disease, if clinically at risk: >/=60 mL/min Moderately decreased: 30-59 Severely decreased: 15-29 Renal failure: <15 Glomerular Filtration Rate (GFR) is estimated based on the MDRD equation, which assumes a steady state for creatinine as recommended by the National Kidney Disease Education Program in conjunction with the National Institutes of Health and the National Kidney Foundation. Clinical conditions in which it may be necessary to measure GFR by using clearance methods include extremes of age and body size, severe malnutrition or obesity, diseases of skeletal muscle, paraplegia or quadriplegia, vegetarian diet, rapidly changing kidney function, and calculation of the dose of potentially toxic drugs that are excreted by the kidneys. 137 Per NCEP ATP III Guidelines: Results lower than 40 mg/dL are suggestive of increased risk for coronary artery disease. Results > or=to 60 mg/dL are considered a negative risk factor. 138 Per NCEP ATP III Guidelines: Normal Population <130 Patients with medical conditions: CHD/DM Optimal: <100 Borderline high: 130-159 High: 160-189 Very high: >189 139 This sample is drawn by:LS/ESCALATION ENGINEER 140 5.5 No visible hemolysis. 141 Concerning GFR Guidelines for Americans: Normal function or mild renal disease, if clinically at risk: >/=60 mL/min Moderately decreased: 30-59 Severely decreased: 15-29 Renal failure: <15 142 Concerning GFR Guidelines: Normal function or mild renal disease, if clinically at risk: >/=60 mL/min Moderately decreased: 30-59 Severely decreased: 15-29 Renal failure: <15 Glomerular Filtration Rate (GFR) is estimated based on the MDRD equation, which assumes a steady state for creatinine as recommended by the National Kidney Disease Education Program in conjunction with the National Institutes of Health and the National Kidney Foundation. Clinical conditions in which it may be necessary to measure GFR by using clearance methods include extremes of age and body size, severe malnutrition or obesity, diseases of skeletal muscle, paraplegia or quadriplegia, vegetarian diet, rapidly changing kidney function, and calculation of the dose of potentially toxic drugs that are excreted by the kidneys. 143 Per NCEP ATP III Guidelines: Results lower than 40 mg/dL are suggestive of increased risk for coronary artery disease. Results > or=to 60 mg/dL are considered a negative risk factor. 144 Per NCEP ATP III Guidelines: Normal Population <130 Patients with medical conditions: CHD/DM Optimal: <100 Borderline high: 130-159 High: 160-189 Very high: >189 145 Per NCEP ATP III Guidelines: Results lower than 40 mg/dL are suggestive of increased risk for coronary artery disease. Results > or=to 60 mg/dL are considered a negative risk factor. 146 Per NCEP ATP III Guidelines: Optimal: <100 Near optimal: 100-129 Borderline high: 130-159 High: 160-189 Very high: >189 147 5.7 No visible hemolysis. Testing was performed on a pour-off tube 148 Concerning GFR Guidelines for Americans: Normal function or mild renal disease, if clinically at risk: >/=60 mL/min Moderately decreased: 30-59 Severely decreased: 15-29 Renal failure: <15 149 Concerning GFR Guidelines: Normal function or mild renal disease, if clinically at risk: >/=60 mL/min Moderately decreased: 30-59 Severely decreased: 15-29 Renal failure: <15 Glomerular Filtration Rate (GFR) is estimated based on the MDRD equation, which assumes a steady state for creatinine as recommended by the National Kidney Disease Education Program in conjunction with the National Institutes of Health and the National Kidney Foundation. Clinical conditions in which it may be necessary to measure GFR by using clearance methods include extremes of age and body size, severe malnutrition or obesity, diseases of skeletal muscle, paraplegia or quadriplegia, vegetarian diet, rapidly changing kidney function, and calculation of the dose of potentially toxic drugs that are excreted by the kidneys. 150 Per NCEP ATP III Guidelines: Results lower than 40 mg/dL are suggestive of increased risk for coronary artery disease. Results > or=to 60 mg/dL are considered a negative risk factor. 151 Per NCEP ATP III Guidelines: Optimal: <100 Near optimal: 100-129 Borderline high: 130-159 High: 160-189 Very high: >189 152 Desirable: <130 Borderline High: 130-159 High: 160-189 Very high: 190 or greater 153 This sample is drawn by:KD/FIRE CONTROL OFFICER 154 Per NCEP ATP III Guidelines: Results lower than 40 mg/dL are suggestive of increased risk for coronary artery disease. Results > or=to 60 mg/dL are considered a negative risk factor. 155 Per NCEP ATP III Guidelines: Optimal: <100 Near optimal: 100-129 Borderline high: 130-159 High: 160-189 Very high: >189 156 5.7 No visible hemolysis. 157 Concerning GFR Guidelines for Americans: Normal function or mild renal disease, if clinically at risk: >/=60 mL/min Moderately decreased: 30-59 Severely decreased: 15-29 Renal failure: <15 158 Concerning GFR Guidelines: Normal function or mild renal disease, if clinically at risk: >/=60 mL/min Moderately decreased: 30-59 Severely decreased: 15-29 Renal failure: <15 Glomerular Filtration Rate (GFR) is estimated based on the MDRD equation, which assumes a steady state for creatinine as recommended by the National Kidney Disease Education Program in conjunction with the National Institutes of Health and the National Kidney Foundation. Clinical conditions in which it may be necessary to measure GFR by using clearance methods include extremes of age and body size, severe malnutrition or obesity, diseases of skeletal muscle, paraplegia or quadriplegia, vegetarian diet, rapidly changing kidney function, and calculation of the dose of potentially toxic drugs that are excreted by the kidneys. 159 Concerning GFR Guidelines for Americans: Normal function or mild renal disease, if clinically at risk: >/=60 mL/min Moderately decreased: 30-59 Severely decreased: 15-29 Renal failure: <15 160 Concerning GFR Guidelines: Normal function or mild renal disease, if clinically at risk: >/=60 mL/min Moderately decreased: 30-59 Severely decreased: 15-29 Renal failure: <15 Glomerular Filtration Rate (GFR) is estimated based on the MDRD equation, which assumes a steady state for creatinine as recommended by the National Kidney Disease Education Program in conjunction with the National Institutes of Health and the National Kidney Foundation. Clinical conditions in which it may be necessary to measure GFR by using clearance methods include extremes of age and body size, severe malnutrition or obesity, diseases of skeletal muscle, paraplegia or quadriplegia, vegetarian diet, rapidly changing kidney function, and calculation of the dose of potentially toxic drugs that are excreted by the kidneys. 161 Per NCEP ATP III Guidelines: Results lower than 40 mg/dL are suggestive of increased risk for coronary artery disease. Results > or=to 60 mg/dL are considered a negative risk factor. 162 Per NCEP ATP III Guidelines: Optimal: <100 Near optimal: 100-129 Borderline high: 130-159 High: 160-189 Very high: >189 163 This sample is drawn by:LS/ESCALATION ENGINEER 164 No visible hemolysis. 165 Concerning GFR Guidelines for Americans: Normal function or mild renal disease, if clinically at risk: >/=60 mL/min Moderately decreased: 30-59 Severely decreased: 15-29 Renal failure: <15 166 Concerning GFR Guidelines: Normal function or mild renal disease, if clinically at risk: >/=60 mL/min Moderately decreased: 30-59 Severely decreased: 15-29 Renal failure: <15 Glomerular Filtration Rate (GFR) is estimated based on the MDRD equation, which assumes a steady state for creatinine as recommended by the National Kidney Disease Education Program in conjunction with the National Institutes of Health and the National Kidney Foundation. Clinical conditions in which it may be necessary to measure GFR by using clearance methods include extremes of age and body size, severe malnutrition or obesity, diseases of skeletal muscle, paraplegia or quadriplegia, vegetarian diet, rapidly changing kidney function, and calculation of the dose of potentially toxic drugs that are excreted by the kidneys. 167 Per NCEP ATP III Guidelines: Results lower than 40 mg/dL are suggestive of increased risk for coronary artery disease. Results > or=to 60 mg/dL are considered a negative risk factor. 168 Per NCEP ATP III Guidelines: Optimal: <100 Near optimal: 100-129 Borderline high: 130-159 High: 160-189 Very high: >189 169 Concerning GFR Guidelines: Normal function or mild renal disease, if clinically at risk: >/=60 mL/min Moderately decreased: 30-59 Severely decreased: 15-29 Renal failure: <15 Glomerular Filtration Rate (GFR) is estimated based on the MDRD equation, which assumes a steady state for creatinine as recommended by the National Kidney Disease Education Program in conjunction with the National Institutes of Health and the National Kidney Foundation. Clinical conditions in which it may be necessary to measure GFR by using clearance methods include extremes of age and body size, severe malnutrition or obesity, diseases of skeletal muscle, paraplegia or quadriplegia, vegetarian diet, rapidly changing kidney function, and calculation of the dose of potentially toxic drugs that are excreted by the kidneys. 170 Concerning GFR Guidelines for Americans: Normal function or mild renal disease, if clinically at risk: >/=60 mL/min Moderately decreased: 30-59 Severely decreased: 15-29 Renal failure: <15 171 Unless otherwise specified, testing performed by [facility] [address] [place] [id number] 172 This sample is drawn by:SURAJ/TRI 173 This sample is drawn by:LS/ESCALATION ENGINEER 174 5.8 No visible hemolysis. 175 Concerning GFR Guidelines: Normal function or mild renal disease, if clinically at risk: >/=60 mL/min Moderately decreased: 30-59 Severely decreased: 15-29 Renal failure: <15 Glomerular Filtration Rate (GFR) is estimated based on the MDRD equation, which assumes a steady state for creatinine as recommended by the National Kidney Disease Education Program in conjunction with the National Institutes of Health and the National Kidney Foundation. Clinical conditions in which it may be necessary to measure GFR by using clearance methods include extremes of age and body size, severe malnutrition or obesity, diseases of skeletal muscle, paraplegia or quadriplegia, vegetarian diet, rapidly changing kidney function, and calculation of the dose of potentially toxic drugs that are excreted by the kidneys. 176 Concerning GFR Guidelines for Americans: Normal function or mild renal disease, if clinically at risk: >/=60 mL/min Moderately decreased: 30-59 Severely decreased: 15-29 Renal failure: <15 177 Per NCEP ATP III Guidelines: Results lower than 40 mg/dL are suggestive of increased risk for coronary artery disease. Results > or=to 60 mg/dL are considered a negative risk factor. 178 Per NCEP ATP III Guidelines: Optimal: <100 Near optimal: 100-129 Borderline high: 130-159 High: 160-189 Very high: >189 179 This sample is drawn by:LOLITA HUGHES 180 FASTING lab draw2 kslpn 181 SPECIMEN SLIGHTLY HEMOLYZED 182 PER NCEP ATP III GUIDELINES: RESULTS LOWER THAN 40 MG/DL ARE SUGGESTIVE OF INCREASED RISK FOR CORONARY ARTERY DISEASE. RESULTS > OR=TO 60 MG/DL ARE CONSIDERED A NEGATIVE RISK FACTOR. 183 INTERPRETATION OF CHOL-HDL RATIO CHD RISK FEMALE MALE VERY HIGH >8.3 >14.3 HIGH 5.6 - 8.3 6.7 - 14.3 AVERAGE 3.7 - 5.6 4.0 - 6.7 BELOW AVERAGE 2.5 - 3.7 2.7 - 4.0 PROTECTED <2.5 <2.7 184 PER NCEP ATP III GUIDELINES: OPTIMAL: <100 NEAR OPTIMAL: 100 - 129 BORDERLINE HIGH: 130 - 159 HIGH: 160 - 189 VERY HIGH: >189 185 This sample is drawn by:LOLITA HUGHES 186 PER NCEP ATP III GUIDELINES: RESULTS LOWER THAN 40 MG/DL ARE SUGGESTIVE OF INCREASED RISK FOR CORONARY ARTERY DISEASE. RESULTS > OR=TO 60 MG/DL ARE CONSIDERED A NEGATIVE RISK FACTOR. 187 INTERPRETATION OF CHOL-HDL RATIO CHD RISK FEMALE MALE VERY HIGH >8.3 >14.3 HIGH 5.6 - 8.3 6.7 - 14.3 AVERAGE 3.7 - 5.6 4.0 - 6.7 BELOW AVERAGE 2.5 - 3.7 2.7 - 4.0 PROTECTED <2.5 <2.7 188 UNABLE TO CALCULATE AN ACCURATE VLDL VALUE DUE TO HIGH TRIGYLCERIDES 189 Triglyceride value>300mg/dl, see Direct LDL result PER NCEP ATP III GUIDELINES: OPTIMAL: <100 NEAR OPTIMAL: 100 - 129 BORDERLINE HIGH: 130 - 159 HIGH: 160 - 189 VERY HIGH: >189 190 Concerning GFR GUIDELINES: Normal Function or Mild Renal Disease, if clinically at risk: >/=60mL/min Moderately decreased: 30-59 Severely decreased: 15-29 Renal Failure: <15 Glomerular Filtration Rate (GFR) is estimated based on the MDRD equation, which assumes a steady state for creatinine as recommended by the National Kidney Disease Education Program in conjunction with the National Institutes of Health and the National Kidney Foundation. Clinical conditions in which it may be necessary to measure GFR by using clearance methods include extremes of age and body size, severe malnutrition or obesity, diseases of skeletal muscle, paraplegia or quadriplegia, vegetarian diet, rapidly changing kidney function, and calculation of the dose of potentially toxic drugs that are excreted by the kidneys. 191 Concerning GFR GUIDELINES: Normal Function or Mild Renal Disease, if clinically at risk: >/=60mL/min Moderately decreased: 30-59 Severely decreased: 15-29 Renal Failure: <15 Procedures Date Code Description Status 07/26/2018 81725 Admin Of Inj (Therapeutic Phrophylactic Or Diagnostic Subq Completed Inj 10/29/2015 88998 Measure Blood Oxygen Level Single Determination Completed 10/16/2015 07427 Measure Blood Oxygen Level Single Determination Completed 2009 16497 Admin Of Inj (Therapeutic Phrophylactic Or Diagnostic Subq Completed Inj 2009 50910 Electrocardiogram Complete Completed Encounters Type Date Location Provider Dx Diagnosis Office Visit 05/02/2019 Oracio Escalante, E11.9 Type 2 diabetes 8:00a N.P. mellitus without complications J44.9 Chronic obstructive pulmonary disease, unspecified I10 Essential (primary) hypertension G25.81 Restless legs syndrome E66.01 Morbid (severe) obesity due to excess calories Z68.42 Body mass index (BMI) 45.0-49.9, adult Office Visit 01/26/2019 8:00a Oracio Escalante, E11.9 Type 2 diabetes N.P. mellitus without complications J44.9 Chronic obstructive pulmonary disease, unspecified I10 Essential (primary) hypertension F17.210 Nicotine dependence, cigarettes, uncomplicated Z13.31 Encounter for screening for depression K21.9 Gastro-esophageal reflux disease without esophagitis Office Visit 10/25/2018 8:00a Oracio Escalante, E11.9 Type 2 diabetes N.P. mellitus without complications M54.40 Lumbago with sciatica, unspecified side J44.9 Chronic obstructive pulmonary disease, unspecified I10 Essential (primary) hypertension M25.50 Pain in unspecified joint Office Visit 08/08/2018 8:00a Oracio Escalante, E11.9 Type 2 diabetes N.P. mellitus without complications Office Visit 07/26/2018 8:00a Oracio Escalante, M54.40 Lumbago with N.P. sciatica, unspecified side J44.9 Chronic obstructive pulmonary disease, unspecified E11.9 Type 2 diabetes mellitus without complications E78.2 Mixed hyperlipidemia Z23 Encounter for immunization Office Visit 04/26/2018 8:00a Oracio Escalante, E11.9 Type 2 diabetes N.P. mellitus without complications I10 Essential (primary) hypertension J44.9 Chronic obstructive pulmonary disease, unspecified M54.40 Lumbago with sciatica, unspecified side Office Visit 01/24/2018 8:00a Oracio Escalante, E11.9 Type 2 diabetes N.P. mellitus without complications I10 Essential (primary) hypertension F39 Unspecified mood [affective] disorder F17.210 Nicotine dependence, cigarettes, uncomplicated Office Visit 11/16/2017 8:30a Oracio Escalante, F39 Unspecified mood N.P. [affective] disorder Office Visit 10/26/2017 8:00a Oracio Escalante, E11.9 Type 2 diabetes N.P. mellitus without complications I10 Essential (primary) hypertension J44.9 Chronic obstructive pulmonary disease, unspecified F39 Unspecified mood [affective] disorder Office Visit 07/27/2017 8:00a Oracio Escalante, E11.9 Type 2 diabetes N.P. mellitus without complications I10 Essential (primary) hypertension Z72.0 Tobacco use J44.9 Chronic obstructive pulmonary disease, unspecified Z23 Encounter for immunization Office Visit 04/27/2017 8:00a Oracio Escalante, E11.9 Type 2 diabetes N.P. mellitus without complications I10 Essential (primary) hypertension E78.2 Mixed hyperlipidemia Office Visit 01/25/2017 8:00a Oracio Escalante, E11.9 Type 2 diabetes N.P. mellitus without complications I10 Essential (primary) hypertension E78.2 Mixed hyperlipidemia F39 Unspecified mood [affective] disorder Office Visit 10/27/2016 8:00a Oracio Escalante, E11.9 Type 2 diabetes N.P. mellitus without complications I10 Essential (primary) hypertension E78.2 Mixed hyperlipidemia M54.5 Low back pain Z72.0 Tobacco use Z23 Encounter for immunization Office Visit 07/28/2016 8:15a Oracio Escalante, E11.9 Type 2 diabetes N.P. mellitus without complications I10 Essential (primary) hypertension E78.0 Pure hypercholesterolemia G25.81 Restless legs syndrome Office Visit 04/28/2016 8:15a Oracio Escalante, E11.9 Type 2 diabetes N.P. mellitus without complications I10 Essential (primary) hypertension E78.2 Mixed hyperlipidemia Office Visit 01/28/2016 8:30a Oracio Escalante, E11.9 Type 2 diabetes N.P. mellitus without complications E78.0 Pure hypercholesterolemia I10 Essential (primary) hypertension Z72.0 Tobacco use M54.5 Low back pain Office Visit 10/29/2015 8:15a Oracio Escalante, E11.9 Type 2 diabetes N.P. mellitus without complications E78.0 Pure hypercholesterolemia I10 Essential (primary) hypertension G25.81 Restless legs syndrome Z72.0 Tobacco use Office Visit 10/16/2015 10:15a Oracio Escalante, J20.9 Acute bronchitis, N.P. unspecified R05 Cough Office Visit 07/30/2015 Monica Hurley, V04.81 Need For Prophylactic 8:15a Oracio, N.P. Vaccination & Inoculation/Influenza 250.00 Diabetes Mellitus W/O Compl Type II Or Unspec Controlled 401.1 Hypertension Benign 272.0 Hypercholesterolemia Pure 719.99 Joint Disorder Unspec Multiple Sites 780.79 Malaise And Fatigue Other V04.89 Need For Prophylactic Vaccination & Inoculation Other Virus Office Visit 04/25/2015 8:30a Oracio Escalante, 250.00 Diabetes Mellitus N.P. W/O Compl Type II Or Unspec Controlled 401.1 Hypertension Benign 780.79 Malaise And Fatigue Other Office Visit 01/24/2015 8:15a Oracio Escalante, 250.00 Diabetes Mellitus N.P. W/O Compl Type II Or Unspec Controlled 401.1 Hypertension Benign 272.1 Hypertriglyceridemia Pure Office Visit 10/26/2014 8:00a Oracio Escalante, 250.00 Diabetes Mellitus N.P. W/O Compl Type II Or Unspec Controlled 401.1 Hypertension Benign 272.1 Hypertriglyceridemia Pure V04.81 Need For Prophylactic Vaccination & Inoculation/Influenza Office Visit 08/30/2014 2:00p Oracio Escalante, 599.70 Hematuria, N.P. Unspecified Office Visit 07/25/2014 8:15a Oracio Escalante, 250.00 Diabetes Mellitus N.P. W/O Compl Type II Or Unspec Controlled 401.1 Hypertension Benign 780.79 Malaise And Fatigue Other 719.99 Joint Disorder Unspec Multiple Sites Office Visit 04/24/2014 8:15a Oracio Escalante, 250.00 Diabetes Mellitus N.P. W/O Compl Type II Or Unspec Controlled 401.1 Hypertension Benign 272.1 Hypertriglyceridemia Pure Office Visit 01/22/2014 8:15a Oracio Escalante, 250.00 Diabetes Mellitus N.P. W/O Compl Type II Or Unspec Controlled 401.1 Hypertension Benign 272.1 Hypertriglyceridemia Pure 780.79 Malaise And Fatigue Other Office Visit 10/24/2013 8:15a Oracio Escalante, 250.00 Diabetes Mellitus N.P. W/O Compl Type II Or Unspec Controlled 272.1 Hypertriglyceridemia Pure 780.79 Malaise And Fatigue Other 268.9 Vitamin D Deficiency Unspec V04.81 Need For Prophylactic Vaccination & Inoculation/Influenza Office Visit 08/09/2013 8:15a Oracio Escalante, 250.00 Diabetes Mellitus N.P. W/O Compl Type II Or Unspec Controlled 401.1 Hypertension Benign 272.1 Hypertriglyceridemia Pure Office Visit 05/08/2013 8:15a Oracio Escalante, 250.00 Diabetes Mellitus N.P. W/O Compl Type II Or Unspec Controlled 272.1 Hypertriglyceridemia Pure Office Visit 02/03/2013 8:15a Oracio Escalante, 250.00 Diabetes Mellitus N.P. W/O Compl Type II Or Unspec Controlled 401.1 Hypertension Benign Office Visit 11/04/2012 8:15a Oracio Escalante, 250.00 Diabetes Mellitus N.P. W/O Compl Type II Or Unspec Controlled 401.1 Hypertension Benign 296.32 Depressive Disorder Major Recurrent Moderate Office Visit 08/05/2012 8:15a Oracio Escalante, 401.1 Hypertension Benign N.P. 268.9 Vitamin D Deficiency Unspec 272.1 Hypertriglyceridemia Pure 250.02 Diabetes Mellitus W/O Compl Type II Or Unspec Type Uncontrol 305.1 Tobacco Use Disorder Office Visit 05/05/2012 8:15a Oracio Escalante, 401.1 Hypertension Benign N.P. 272.1 Hypertriglyceridemia Pure 250.02 Diabetes Mellitus W/O Compl Type II Or Unspec Type Uncontrol 696.8 Psoriasis Other Office Visit 02/03/2012 3:30p Oracio Escalante, N.P. 696.8 Psoriasis Other 250.02 Diabetes Mellitus W/O Compl Type II Or Unspec Type Uncontrol 401.1 Hypertension Benign 305.1 Tobacco Use Disorder Office Visit 11/03/2011 8:15a Oracio Escalante, 250.02 Diabetes Mellitus N.P. W/O Compl Type II Or Unspec Type Uncontrol 401.1 Hypertension Benign 696.8 Psoriasis Other 305.1 Tobacco Use Disorder Office Visit 08/04/2011 9:15a Oracio Escalante, 250.02 Diabetes Mellitus N.P. W/O Compl Type II Or Unspec Type Uncontrol 401.1 Hypertension Benign 719.49 Pain Joint Multiple Sites 696.8 Psoriasis Other Office Visit 07/24/2011 8:15a Oracio Escalante, 250.02 Diabetes Mellitus N.P. W/O Compl Type II Or Unspec Type Uncontrol 719.49 Pain Joint Multiple Sites 401.9 Hypertension Unspec 780.79 Malaise And Fatigue Other Office Visit 05/07/2011 3:15p Oracio Escalante, 250.02 Diabetes Mellitus N.P. W/O Compl Type II Or Unspec Type Uncontrol 401.9 Hypertension Unspec Office Visit 04/23/2011 8:30a Monica Hurley, 272.1 Hypertriglyceridemia Pure Oracio, N.P. 401.9 Hypertension Unspec Office Visit 04/09/2011 3:00p Oracio Escalante 401.9 Hypertension Unspec N.P. 696.8 Psoriasis Other 305.1 Tobacco Use Disorder Office Visit 03/31/2011 8:15a Oracio Escalante N.P. 696.8 Psoriasis Other 401.9 Hypertension Unspec 709.9 Skin & Subcutaneous Tissue Disorders Unspec Office Visit 06/27/2009 3:50p Bernard Nielson MD 268.9 Vitamin D Deficiency Unspec 696.8 Psoriasis Other 401.9 Hypertension Unspec Office Visit 03/26/2009 3:50p Bernard Nielson 272.1 Hypertriglyceridemia Pita Pendleton MD 401.9 Hypertension Unspec 268.9 Vitamin D Deficiency Unspec Office Visit 2009 3:50p Bernard Nielson 272.1 Hypertriglycerarminda Pendleton MD V70.0 Exam (Adult) General Medical Routine AT Health Care Facility 696.0 Psoriatic Arthropathy 696.8 Psoriasis Other 401.9 Hypertension Unspec V04.89 Need For Prophylactic Vaccination & Inoculation Other Virus V06.1 Kssmzmfekn-Rrecaey-Bucqvdbw Combined (DTaP) 305.1 Tobacco Use Disorder Plan of Treatment 05/02/2019 - Oracio Hurley, N.P.E11.9 Type 2 diabetes mellitus without complicationsNew Labs:Hemoglobin A1c, Ordered: 05/02/19Basic (BMP), Ordered: Lipid, Ordered: 05/02/19Comments:poorly controlled DM with Farxiga, Tradjenta, and metforminpt noncompliance with diet and exercise recommendations certainly may play a role in elevated A1C.Pt willing to see endocrinology for further eval in 44.9 Chronic obstructive pulmonary disease, unspecifiedComments:stable with stioloto at this time reinforced importance of quit [id number] Essential (primary) hypertensionNew Labs:Hemoglobin A1c, Ordered: 05/02/19Basic (BMP), Ordered: 05/02/19Lipid, Ordered: 05/02/19Comments : stable with current meds. Cont same pt inst to monitor B/P at home/work 2-3 times per week and report abngoal: <140/90G25.81 Restless legs syndromeComments:MEDS RXD make sure to drink plenty of jnzmvlP28.01 Morbid (severe) obesity due to excess caloriesComments:5A's for Obesity Counseling1. ASSESS: Patient presents with a BMI of 46.2, would like to discuss weight loss options.2. ADVISE: Discussed usp complications of obesity in particular increased riskfor development of diabetes and heat disease as well as the many health benefits that come with a healthy BMI.3. AGREE: Goal is 1 pound or better per week weight loss. The patient understands and agrees to the plan outlined today.4. ASSIST: Reduce caloric intake, reduce proportion of carbohydrates indiet, establish daily exercise pattern, keep food log.5. ARRANGE : Follow up scheduled in _3mo___ to assess and adjust treatment plan if needed.Time spent counseling the patient on obesity is 15 minutes. Obesity Screening Completed (G0447)Z68.42 Body mass index (BMI) 45.0-49.9, adultComments :5A's for Obesity Counseling1. ASSESS: Patient presents with a BMI of 46.2, would like to discuss weight loss options.2. ADVISE: Discussed usp complications of obesity in particular increased riskfor development of diabetes and heat disease as well as the many health benefits that come with a healthy BMI.3. AGREE: Goal is 1 pound or better per week weight loss. The patient understands and agrees to the plan outlined today.4. ASSIST: Reduce caloric intake, reduce proportion of carbohydrates indiet, establish daily exercise pattern, keep food log.5. ARRANGE: Follow up scheduled in _3mo___ to assess and adjust treatment plan if needed.Time spent counseling the patient on obesity is 15 minutes. Obesity Screening Completed (G0447)
--- OUTSIDE RECORDS SUMMARY | 2019-05-31 19:47 | XMS REPORT | Continuity of Care Document ---
:1970 External Reference #:[id number] Author Name Oracio Hurley N.Arielle Address [address] [place] [address] Care Team Providers Name Role Phone Brenton Rodriguez MD Care Team Information Commodity Supervisor Unavailable Payers Date Identification Numbers Payment Provider Subscriber Effective: 2011 Policy Number: [id number] BCBS Ppo Bryant Goddard PayID: [id number] [address] [address] [place] [address] Problems Active Problems Provider Date Benign essential hypertension Onset: 07/24/2011 Type 2 diabetes mellitus Onset: 07/24/2011 Tobacco user Oracio Hurley, N.P. Onset: 10/29/2015 Restless legs Oracio Hurley, N.P. Onset: 10/29/2015 Essential hypertension Oracio Hurley, [...] Liver Disease () - age 44 Mother [place] 44yo First Son Good Health First Son Drug Addiction First Son Lukas Second Son Good Health Third Son Good Health First Daughter Melanoma First Daughter Cecile Social History Type Date Description Comments Sex Unknown Marital Status Occupation [employer] Tobacco Use Start: Unknown current cigarette smoker [...] Date Provider Calcipotriene Apply bid to 60gm [facility], 03/03/2019 0.005% affected area of Mashelle, N.P. Ointment knees and elbows Ibuprofen 1 by mouth four 40tabs [facility], 10/25/2018 800mg Tablets times a day with Mashelle, N.P. food Farxiga 1 by mouth every 30tabs [facility], 08/08/2018 5mg Tablets day Mashelle, N.P. Trazodone HCL take one to two 60tabs [facility], 07/26/2018 100mg tablets by mouth Mashelle, N.P. Tablets at bedtime Allergy [facility], 04/26/2018 10mg Tablets Mashelle, N.P. Prilosec OTC 1 by mouth every 90tabs [facility], 01/24/2018 20mg day Mashelle, N.P. Tablets DR Reddy [facility]2016 Strips Glucometer Once Mashelle, N.P. Daily as Directed Ropinirole HCL Take One Tablet By 90ta [facility], 10/29/2015 3mg Mouth AT Bedtime Mashelle, N.P. Tablets Stiolto Respimat Inhale Two Puffs 4un [facility], 10/29/2015 By Mouth Every Day Mashelle, N.P. 2.5-2.5mcg/Act Aerosol Glucometer use as directed [facility], 03/09/2014 tid Mashelle, N.P. Test Strips [facility], 03/09/2014 glucometer once Mashelle, N.P. every day as directed Tradjenta Take One Tablet By 90tabs [facility], 02/29/2012 5mg Tablets Mouth Every Day Mashelle, N.P. Metformin HCL take [facility] 05/[facility]2011 500mg mouth twice a day Mashelle, N.P. Tablets Lisinopril take one tablet by 90tabs [facility], 04/23/2011 20mg Tablets mouth every day Mashelle, N.P. Vitamin D-3 Super 1 po qd 100tabs Bernard Cuenca 03/26/2009 Riky Pendleton MD 2000Unit Tablets History Medications Trazodone HCL take one to two 60tabs [facility], 07/26/2018 - 100mg tablets by mouth Mashelle, N.P. 10/25/2018 Tablets at bedtime Lyrica take one capsule 28caps [facility], 04/26/2018 - 75mg Capsules by mouth twice a Mashelle, N.P. 07/26/2018 day maximum daily dose=2 capsules Omeprazole Take One Capsule 30caps [facility], 02/22/2018 - 20mg Capsules By Mouth Every [facility], [facility] 04/26/2018 DR Day Cyclobenzaprine HCL Take One Tablet 30tabs [facility], 02/03/2018 - 10mg By Mouth AT Mashelle, N.P. 07/26/2018 Tablets Bedtime Calcipotriene Apply bid to 60gm [facility], 01/24/2018 - 0.005% affected area of [facility], N[facility]P. 04/26/2018 Ointment knees and elbows Duloxetine HCL take 1 capsule by 30caps Xavi, 10/26/2017 - 60mg Caps mouth 1 time Oracio, N.P. 11/16/2017 DR Part daily Sertraline HCL take one tablet 90tabs [facility], 10/26/2017 - 50mg by mouth at Mashelle, N.P. 01/24/2018 Tablets bedtime Cyclobenzaprine HCL Take One Tablet 30tabs [facility], 03/24/2017 - 10mg By Mouth AT [facility] 10/26/2017 Tablets Bedtime Escitalopram Oxalate 1 by mouth every 30tabs [facility], 01/25/2017 - 20mg day Mashelle, N.P. 04/27/2017 Tablets Nicotrol use up to 16 504units [facility], 01/25/2017 - 10mg Inhaler cartridges qd as Mashelle, N.P. 07/26/2018 directed Cyclobenzaprine HCL take one tablet 30tabs Xavi, 10/27/2016 - 10mg by mouth q hs Demetriusle, N.P. 01/25/2017 Tablets Cyclobenzaprine HCL take one tablet 30tabs [facility], 07/28/2016 - 10mg by mouth three Mashelle, N.P. 10/27/2016 Tablets times a day as needed muscle spasm Wellbutrin XL take one tablet 30tabs [facility], 04/28/2016 - 150mg by mouth every Mashelle, N.P. 04/27/2017 Tablets ER 24HR day Zithromax Z-Flaquito as directed 1tabs [facility], 10/16/2015 - [facility]mg [facility] 10/29/2015 Tablets Neurontin Take Two Capsules 60caps [facility], 10/01/2015 - 100mg Capsules By Mouth AT [facility], N.P. 10/29/2015 Bedtime And Take One Capsule By Mouth Every Morning Ropinirole HCL 1 po qhs 30tabs [facility], 09/09/2015 - 2mg [facility] 10/29/2015 Tablets Gabapentin 2 by mouth every 60caps [facility], 07/30/2015 - 100mg Capsules at bedtime and 1 Mashelle, N.P. 10/29/2015 in in the morning Soma 1 by mouth four 20tabs [facility], 04/25/2015 - 350mg Tablets times a day Mashelle, N.P. 07/30/2015 Cyclobenzaprine HCL 1 po q tid prn 30tabs [facility], 10/26/2014 - 10mg spasm [facility] 04/25/2015 Tablets Cipro 1 by mouth twice 20tabs [facility], 07/25/2014 - 500mg Tablets a day x 10 days Oracio, N.P. 08/30/2014 Requip 1 by mouth every 90tabs [facility], 10/24/2013 - 2mg Tablets at bedtime [facility] 07/30/2015 Cyclobenzaprine HCL 1 po q tid prn 30tabs [facility], 08/09/2013 - 10mg spasm [facility], N.P. 07/25/2014 Tablets Keflex 1 po qid x 10 40caps [facility], 02/16/2013 - 500mg Capsules days Mashelle, N.P. 05/08/2013 Clotrimazole/Betametha apply tid to 45gm [facility], 02/03/2013 - sone Dipropionate affected area [facility], N.P. 08/09/2013 1-0.05% Cream Flexeril 1 po q hs 30tabs [facility], 05/05/2012 - 10mg Tablets [facility], N.P. 08/09/2013 Onglyza 1 po qd 30tabs [facility], 02/12/2012 - 5mg Tablets Demetriusle, N.P. 02/29/2012 Lotrisone apply tid to 45gm [facility], 02/03/2012 - 1-0.05% Cream affected area Massara[place], N.P. 02/03/2013 Wellbutrin XL 1 by mouth every 90tabs [facility], 11/03/2011 - 300mg day Mass[place], N.P. 01/24/2015 Tablets ER 24HR Lotrisone apply tid to 15gm [facility], 08/04/2011 - 1-0.05% Cream affected area Demetriusreji, N.P. 11/03/2011 Bactroban apply bid as 22gm [facility], 05/07/2011 - 2% Ointment directed Oracio, N.P. 07/24/2011 Lisinopril 1 po qd 30tabs [facility], 04/09/2011 - 10mg Tablets [facility] 04/23/2011 Wellbutrin SR 1 po bid 60tabs [facility], 04/09/2011 - 150mg Oracio, N.P. 11/03/2011 Tablets ER 12HR Prednisone 1 po qd x 5 days 5tabs [facility], 03/31/2011 - 50mg Tablets Demetriusle, N.P. 04/09/2011 Keflex 1 po qid x 7 days 28caps [facility], 03/31/2011 - 500mg Capsules [facility] 04/09/2011 Clobetasol Propionate apply bid prn 60gm [facility], 06/27/2009 - as directed Oracio N.P. 08/09/2013 0.05% Cream Chantix Starter Pack as directed 1Mos 401.9 Bernard Cuenca 2009 - MD Keerthi 03/31/2011 #1Pack Triamcinolone bid x 10 days 60GR 696.8 Bernard Cuenca 2009 - Acetmindy Pendleton MD 08/04/2011 0.5% Cream Taclonex Unknown - 0.005-0.064% 10/26/2014 Suspension Calcipotriene Unknown - 0.005% 10/26/2014 Ointment Immunizations CPT Code Status Date Vaccine Lot # [id number] Given 07/26/2018 Influenza Vac, Quadrivalent, Split, 0.5mL Dosage, [id number] Im Use 52139 Given 07/27/2017 Influenza Vac, Quadrivalent, Split, 0.5mL Dosage, [id number] Im Use 83181 Given 10/27/2016 Influenza Vac, Quadrivalent, Split, 0.5mL Dosage, [id number] Im Use 34085 Given 07/30/2015 Influenza Vac, Quadrivalent, Split, 0.5mL Dosage, [id number] Im Use 89470 Given 10/26/2014 Afluria Or Fluvirin Flu Vac Intramuscular [id number] Given 10/24/2013 Fluzone Trivalent Immunization [id number] 19940 Given 2009 Tdap (Adacel) Ages 7 And Above Only [id number] Vital Signs Date Vital Result Comment 05/02/2019 [...] Egfr >60 >60 6 [facility] 8.6 % High 4.1-5.9 Estimated Average Glucose Calc 200 mg/dL High 71-140 Lipid 01/26/2019 [facility] Cholesterol 194 mg/dL 50-199 Triglycerides 292 mg/dL High 30-200 HDL 28 mg/dL Low 29-71 7 Chol/ HDL Ratio 6.9 ratio High 4.0-6.7 VLDL 58 mg/dL High 2-29 LDL (Calc) 107 mg/dL High 20-99 8 Hemoglobin A1c 10/25/2018 [facility] Hemoglobin A1c 7.3 % High 4.1-5.9 9 Estimated Average Glucose Calc 163 mg/dL High 71-140 Lyme Igm/Igg AB -RL 10/25/2018 [facility] Lyme Igm/Igg AB @ NEGATIVE (Neg) 10 [...] mg/dL High 20-99 17 Laboratory test [facility] CRP (C-Reactive) 0.40 mg/dL 0.00- 0.75 finding Hemoglobin A1c 07/26/2018 [facility] Hemoglobin A1c 7.6 % High 4.1-5.9 Estimated Average Glucose Calc 171 mg/dL High 71-140 Comprehensive Met Panel-[facility] 07/26/2018 [facility] Sodium 135 mmol/L 135- 146 18 Potassium [...] mmol/L Low 5-15 22 Hemoglobin A1c 04/26/2018 [facility] Hemoglobin A1c 7.5 % High 4.1-5.9 Estimated [...] Gap 12 mmol/L 5-15 27 Lipid 04/26/2018 [facility] Cholesterol 187 mg/dL 50-199 Triglycerides 248 mg/dL High 30-200 HDL 29 mg/dL 29- 28 Chol/ HDL Ratio 6.5 ratio 4.0-6.7 VLDL 50 mg/dL High 2-29 LDL (Calc) 109 mg/dL High 20-99 29 Hemoglobin A1c 01/24/2018 [facility] Hemoglobin A1c 7.1 % High 4.1-5.9 Estimated [...] 8 mmol/L 5-15 34 Hemoglobin A1c 10/26/2017 [facility] Hemoglobin A1c 6.9 % High 4.1-5.9 Estimated Average Glucose Calc 151 mg/dL High 71-140 Comprehensive Met Panel-[facility]CMG 10/26/2017 [facility] Sodium 137 mmol/L 135- 146 35 Potassium [...] 40 BUN 17 mg/dL 6-26 Lipid 10/26/2017 [facility] Cholesterol 198 mg/dL 50-199 Triglycerides 357 mg/dL High 30-200 HDL 29 mg/dL 29-71 41 Chol/ HDL Ratio 6.7 ratio 4.0-6.7 VLDL 71 mg/dL High 2-29 LDL (Calc) 97 mg/dL 20-99 42 Hemoglobin A1c 07/27/2017 [facility] Hemoglobin A1c 6.8 % High 4.1-5.9 43 [...] 13 mmol/L 7-16 57 Hemoglobin A1c 04/27/2017 [facility] Hemoglobin A1c 6.5 % High 4.1-5.9 Estimated Average Glucose Calc 140 71-140 Lipid 01/25/2017 [facility] Cholesterol 187 mg/dL 50-199 Triglycerides 283 mg/dL High 30-200 HDL 32 mg/dL 29-71 58 Chol/ HDL Ratio 5.9 ratio 4.0-6.7 VLDL 57 mg/dL High 2-29 LDL (Calc) 99 mg/dL 20-99 59 Microalb/Creat Panel 01/25/2017 [facility] Creatinine, Urine 114.5 mg/dL 60 Microalbumin < 5.0 ug/ml 5.0-20.0 Laboratory test finding 01/25/2017 [facility] Hemoglobin A1c 6.5 % High 4.1- 5.9 Comprehensive Metabolic 01/25/2017 [facility] Sodium 140 mmol/L 135-146 61 (CMP) [...] >60 >60 71 Laboratory test finding 07/28/2016 [facility] Hemoglobin A1c 6.0 % High 4.1- 5.9 Comprehensive Metabolic 07/28/2016 [facility] Sodium 135 mmol/L 134-142 (CMP) Potassium 5.9 [...] >60 >60 104 Laboratory test finding 01/24/2015 [facility] Hemoglobin A1c 5.9 % 4.1-5.9 Lipid 01/24/2015 [...] Screen Neg Neg Laboratory test finding 05/01/2011 [facility] Hemoglobin A1c 6.6 % High 4.1- [...] D, 25 35 ng/mL 31-100 179 finding [facility] [place] [place], [place] [id number] [phone] Lipid Panel 04/29/2009 [facility] (Do not Use) Cholesterol 176 mg/dL 50 -199 180, [facility] [place] [address] [place], [place] [id number] [phone] Triglycerides 154 mg/dL High 10-150 HDL 24 mg/dL Low 29-71 182 Chol/HDL Ratio 7.3 Ratio High 4.0-6.7 183 VLDL 31 mg/dL High 2-29 LDL (Calc) 121 mg/dL 20-129 184 Lipid Panel 2009 [facility] (Do not Use) Cholesterol 221 mg/dL High 50-199 185 [facility] [place] [place], [place] [id number] [phone] Triglycerides 422 mg/dL High 10-150 HDL 25 mg/dL Low 29-71 186 Chol/HDL Ratio 8.8 Ratio High 4.0-6.7 187 VLDL UNABLE TO CALCUL <SEE NOTE> mg/dL Abnormal 188 LDL (Calc) Triglyceride ramirez <SEE NOTE> mg/dL 189 Laboratory test 2009 [facility] (Do not Use) Hemoglobin A1c 6.4 % 4.1-6.5 finding [facility] [place] [place] [address] [phone] Esr 2 MM/HR 0-15 CMP 2009 [facility] (Do not Use) Sodium 138 mmol/L 135-144 [facility] [place] [place] [address] [phone] Potassium 5.0 mmol/L 3.6-5.2 Chloride 104 mmol/L [...] D, 25 16 ng/mL Low 31-100 finding [facility] [place] [place] [address] [phone] TSH 1.81 uIU/ml 0.34-5.60 Direct LDL 148 mg/dL High 20-129 1 This sample is drawn by:ss/taffy candy maker 2 Updated reference range on new analyzer [...] Unless otherwise specified, testing performed by [facility] [address] [place] [id number] 11 Updated reference range on new analyzer [...] high: >189 86 This sample is drawn by:kd/taffy candy maker 87 6.4 No visible hemolysis. Results verified [...] high: >189 96 This sample is drawn by:PHIL/DINKEY OPERATOR 97 5.4 No visible hemolysis. 98 Concerning [...] high: >189 107 This sample is drawn by:kd/taffy candy maker 108 No visible hemolysis.,Results verified by repeat [...] high: >189 113 This sample is drawn by:LS/DINKEY OPERATOR Fastin hours Fastin hours Fasting : 12 hours This sample is drawn by:LS/DINKEY OPERATOR Fastin hours This sample is drawn by:LS/DINKEY OPERATOR Fastin hours This sample is drawn by:LS/DINKEY OPERATOR Fastin hours 114 Concerning GFR Guidelines for [...] No growth 119 This sample is drawn by:LS/DINKEY OPERATOR Fastin hours 120 A Negative serologic test for Lyme Disease indicates no serologic evidence of infection with B burgdorferi at the time this specimen was collected. A repeat specimen should be collected in 2 to 4 weeks if clinically indicated. Unless otherwise specified, testing performed by [facility] [address] [place] [id number] 121 This sample is drawn by:LS/DINKEY OPERATOR Fastin hours Fastin hours Fasting : 12 hours This sample is drawn by:LS/DINKEY OPERATOR Fastin hours This sample is drawn by:LS/DINKEY OPERATOR Fastin hours This sample is drawn by:LS/DINKEY OPERATOR Fastin hours 122 This sample is drawn by:LS/DINKEY OPERATOR 123 Results verified by repeat analysis,No visible [...] high: >189 133 This sample is drawn by:KD/SORTER LUMBER STRAIGHTENER 134 5.5 No visible hemolysis. 135 Concerning [...] high: >189 139 This sample is drawn by:LS/DINKEY OPERATOR 140 5.5 No visible hemolysis. 141 Concerning [...] or greater 153 This sample is drawn by:KD/SORTER LUMBER STRAIGHTENER 154 Per NCEP ATP III Guidelines: Results [...] high: >189 163 This sample is drawn by:LS/DINKEY OPERATOR 164 No visible hemolysis. 165 Concerning GFR [...] Unless otherwise specified, testing performed by [facility] [address] [place] [id number] 172 This sample is drawn by:SURAJ/TRI 173 This sample is drawn by:LS/DINKEY OPERATOR 174 5.8 No visible hemolysis. 175 Concerning [...] <15 Procedures Date Code Description Status 07/26/2018 44971 Admin Of Inj (Therapeutic Phrophylactic Or Diagnostic Subq Completed Inj 10/29/2015 72636 Measure Blood Oxygen Level Single Determination Completed 10/16/2015 96816 Measure Blood Oxygen Level Single Determination Completed 2009 74857 Admin Of Inj (Therapeutic Phrophylactic Or Diagnostic Subq Completed Inj 2009 31937 Electrocardiogram Complete Completed Encounters Type Date Location [...] Deficiency Unspec Office Visit 2009 3:50p Bernard Nielsno 272.1 Hypertriglycerarminda Pendleton MD V70.0 Exam (Adult) General Medical Routine AT Health Care Facility 696.0 Psoriatic Arthropathy 696.8 Psoriasis Other 401.9 Hypertension Unspec V04.89 Need For Prophylactic Vaccination & Inoculation Other Virus V06.1 Jxefmyzola-Ztxeiof-Sqwldjfy Combined (DTaP) 305.1 Tobacco Use Disorder Plan [...] at this time reinforced importance of quit [id number] Essential (primary) hypertensionNew Labs:Hemoglobin A1c, Ordered: 05/02/19Basic (BMP), Ordered: 05/02/19Lipid, Ordered: 05/02/19Comments : stable with current meds. Cont same pt inst to monitor B/P at home/work 2-3 times per week and report abngoal: <140/90G25.81 Restless legs syndromeComments:MEDS RXD make sure to drink plenty of sjmwcoY87.01 Morbid (severe) obesity due to excess grxrorgcB75.42 Body mass index (BMI) 45.0-49.9, adult
[2019-05-31 19:53] VITALS: BP 116/73
[2019-05-31] MEDS ORDERED: Ibuprofen TAB* 400 MG PO ONE (20:18)
[2019-05-31] MEDS ORDERED: Acetaminophen TAB* 325 MG PO ONE (20:18)
[2019-05-31] MEDS ORDERED: NS 0.9% 1000 ML** 1,000 ML IV ONE (20:20)
--- NOTE | 2019-05-31 21:52 | UC ---
Respiratory Complaint HPI - HPI Summary HPI Summary: 49-year-old male with a history of diabetes on metformin and heavy tobacco use presents with one-day of myalgias, fever, diarrhea and feeling unwell. Patient also reporting a generalized throbbing headache that he describes as 9 and 10, gradual in onset. Additionally the patient reports a cough with mucus production. No vomiting but does have nausea. Patient endorses mild dyspnea, no chest pain. Patient reports subjective fevers at home - History of Current Complaint Chief Complaint: UCRespiratory Stated Complaint: URI Time Seen by Provider: 05/31/19 20:09 Pain Intensity: 8 - Allergies/Home Medications Allergies/Adverse Reactions: Allergies Allergy/AdvReac Type Severity Reaction Status Date / Time No Known Allergies Allergy Verified 05/31/19 19:53 Home Medications: Home Medications Dm/P-Ephed/Acetaminoph/Doxylam [Dianne [place] Plus Severe 10-12.5-20-650 mg] 1 pow PO 05/31/19 [History] PMH/Surg Hx/FS Hx/Imm Hx Endocrine History: Diabetes - Surgical History Surgical History: None - Family History Known Family History: Positive: None - Social History Alcohol Use: None Substance Use Type: None Smoking Status (MU): Heavy Every Day Tobacco Smoker Type: Cigarettes Amount Used/How Often: 1 PPD Length of Time of Smoking/Using Tobacco: 20 YEARS Have You Smoked in the Last Year: Yes Household Exposure Type: Cigarettes Cessation Counseling: Patient Advised to Stop Review of Systems All Other Systems Reviewed And Are Negative: Yes Constitutional: Positive: Fever, Fatigue Skin: Positive: Negative ENT: Positive: Sore Throat, Nasal Discharge Respiratory: Positive: Shortness Of Breath, Cough Cardiovascular: Positive: Negative Gastrointestinal: Positive: Diarrhea, Nausea. Negative: Abdominal Pain, Vomiting Genitourinary: Positive: Negative Musculoskeletal: Positive: Myalgia Neurological: Positive: Headache Physical Exam - Summary Physical Exam Summary: Constitutional: ill appearing, obese male. Skin: placques to extensor surfaces HENT: Normocephalic; Atraumatic Eyes: Conjunctiva normal Neck: Musculoskeletal ROM normal neck. (-) JVD, (-) Stridor Cardio: Rhythm regular, rate normal, Heart sounds normal; Intact distal pulses; Radial pulses are 2+ and symmetric. (-) Murmur Pulmonary/Chest wall: inc WOB, RML and RUL rhonchi. Abd: Soft, (-) tenderness, (-) Distension, (-) Guarding, (-) Rebound Musculoskeletal: (-) Edema Lymph: (-) Cervical adenopathy Neuro: Alert, Oriented x3 Psych: Mood and affect Normal Vital Signs: Initial Vital Signs Temp 37.3 C 05/31/19 19:49 Pulse 97 05/31/19 19:49 Resp 24 05/31/19 19:49 BP 116/73 05/31/19 19:49 Pulse Ox 96 05/31/19 19:49 Respiratory Course/Dx - Course Course Of Treatment: 49-year-old male with a history of diabetes and tobacco use presents with 1 day of generalized fatigue, myalgias, fever Vital signs stable no acute distress. Patient does appear mildly dyspneic on exam Physical exam notable for rhonchi in the right upper and middle lobes Discussed with patient limited resources at urgent care however patient and to try here therefore we'll give 1 L fluids, Motrin, Tylenol check a platelet glucose and a urinalysis to assess for dehydration and reassess Regarding headache patient does not have signs of meningitis, and I suspect that his pain is secondary to a viral syndrome. Imaging obtained at this time. We'll attempt symptom control and reassessment 9:30 PM chest x-ray notable for right middle right upper lower lobe infiltrate concerning for pneumonia given patient's medical history and overall unwell appearance discussed with and patient that we would be more comfortable sending him to the emergency department where he can get lab work and IV antibiotics patient was agreeable to this and will go to the [facility] emergency Department by car - Differential Dx/Diagnosis Provider Diagnosis: Pneumonia, Headache Discharge - Sign-Out/Discharge Documenting (check all that apply): Patient Departure All imaging exams completed and their final reports reviewed: No - Discharge Plan Condition: Fair Disposition: HOME-RECOMMEND TO ED Patient Education Materials: Pneumonia (ED) Referrals: Oracio Hurley NP [Primary Care Provider] - Additional Instructions: Neto was seen in urgent care for cough and feeling unwell. His chest x-ray is suggestive of a pneumonia therefore we recommend you go to the emergency department. - Billing Disposition and Condition Condition: FAIR Disposition: Home-Recommend to ED
--- NOTE | 2019-06-01 10:50 | UC ---
- Progress Note Progress Note: Patient Name: NETO ARTIS Medical Record#: [id number] Ordering Physician: Re Alves MD Acct.#: [id number] : 1970 Age: 49 Sex: M Location: [facility] Exam Date: 05/31/192020 ADM Status: DEP ER Order Information: CHEST PA & LAT 2 VWS Accession Number: [id number] CPT: 11429 INDICATION: Cough COMPARISON: There are no relevant prior studies available for comparison. TECHNIQUE: Dual-energy PA and lateral views of the chest were obtained. FINDINGS: There is airspace opacification in the right upper lobe. There is no pleural effusion. The cardiomediastinal silhouette is within normal limits. The upper abdominal contents are normal. Osseous structures are unremarkable. IMPRESSION: Right upper lobe airspace opacification R0 Preliminary Imaging Read R0 <Electronically signed by Ho Freeman MD in OV> 06/01/19726 Dictated By: Ho Freeman MD Dictated Date/Time: 06/01/19726 Transcribed Date/Time: 06/01/19725 Copy to: CC:Re Alves MD; Oracio Hurley NP Imaging - [facility] Imaging - [facility] [address] [address] ph ([phone]) ph ([phone]) ph ([phone]) This report is only to be considered final once signed by the Provider(s) as displayed in the "<Electronically Signed by >" field (s). Absence of a signature indicates the report is in a draft status and still needs to be finalized. In the event this document was created by someone other than the signing Provider, the individual initiating the document will be listed in the "Entered by:" or "Dictated by:" miller. 1 of 1 Course/Dx - Diagnoses Provider Diagnoses: Pneumonia, Headache Discharge - Sign-Out/Discharge Documenting (check all that apply): Patient Departure All imaging exams completed and their final reports reviewed: Yes - Discharge Plan Condition: Fair Disposition: HOME-RECOMMEND TO ED Patient Education Materials: Pneumonia (ED) Referrals: Oracio Hurley NP [Primary Care Provider] - Additional Instructions: Neto was seen in urgent care for cough and feeling unwell. His chest x-ray is suggestive of a pneumonia therefore we recommend you go to the emergency department. - Billing Disposition and Condition Condition: FAIR Disposition: Home-Recommend to ED
== END 2019-05-31 21:49 | disposition home health service (06) ==
LOC: UCEAST 19:40
DX: J18.9 Pneumonia, unspecified organism (principal); R51 Headache; E11.9 Type 2 diabetes mellitus without complications; Z79.84 Long term (current) use of oral hypoglycemic drugs
CPT/HCPCS: 71046; 96360; 99212; A9270-GY; G0463

== ENCOUNTER 2019-05-31 23:10 | Emergency (ER) | payer BC ==
[2019-06-01] MEDS ORDERED: Levofloxacin 750 MG IVPREMIX(* 750 MG/150 ML BAG IVPB ONE (00:03)
[2019-06-01] MEDS ORDERED: NS 0.9% 1000 ML** 1,000 ML IV.FLUID IV ONE (00:03)
[2019-06-01] MEDS ORDERED: diPHENhydraMINE IV* 50 MG/ML 1 ml VIAL (BENADRYL) SLOW PUSH ONE (00:04)
[2019-06-01] MEDS ORDERED: Ketorolac INJ* 30 MG/ML 1 ML VIAL IV PUSH ONE (00:04)
[2019-06-01] MEDS ORDERED: Metoclopramide IV* 5 MG/ML 2 ML VIAL IV SLOW PU ONE (00:04)
[2019-06-01 00:41] LABS: Hematocrit 41 % (42-52); Hemoglobin 14.1 g/dL (14.0-18.0); Mean Corpuscular HGB Conc 34 g/dL (31-36); Mean Corpuscular Hemoglobin 29 pg (27-31); Mean Corpuscular Volume 85 fL (80-94); Mean Platelet Volume 8.2 fL (7.4-10.4); Platelet Count 161 10^3/uL (150-450); Red Blood Count 4.82 10^6 /uL (4.18-5.48); Red Cell Distribution Width 15 % (10-15); White Blood Count 14.9 10^3/uL (3.5-10.8)
[2019-06-01 00:48] LABS: Activated Partial Thrombo Time 38.7 seconds (26.0-38.0); INR 1.33 (0.82-1.09)
[2019-06-01] MEDS ORDERED: LORazepam INJ* 2 MG/ML 1 ML VIAL IV PUSH ONE (00:55)
[2019-06-01] MEDS ORDERED: Lorazepam PYXIS KEY PRN (00:55)
[2019-06-01 01:02] LABS: ABS Lymphocytes 1.6 10^3/ul (1.0-4.8); ABS Neutrophils 12.3 10^3/ul (1.5-7.7); Eosinophil % 0.2 %; Lymphocyte % 10.6 %; Nucleated Red Blood Cells % 0.1
[2019-06-01] MEDS ORDERED: Lorazepam PYXIS KEY ONE (01:02)
[2019-06-01 01:06] LABS: Albumin 3.8 g/dL (3.2-5.2); Albumin/Globulin Ratio 1.3 (1-3); BUN/Creatinine Ratio 15.9 (8-20); Calcium 8.7 mg/dL (8.6-10.3); EGFR African American 83.5 (>60); Potassium 3.8 mmol/L (3.5-5.0); Total Bilirubin 1.3 mg/dL (0.2-1.0); Total Protein 6.8 g/dL (6.4-8.9)
[2019-06-01] MEDS ORDERED: Diazepam INJ (NF) 5 MG/ML 10 ML VIAL (50 MG TOTAL) IV ONE (01:33)
[2019-06-01] MEDS ORDERED: Diazepam SYRINGE* 5 MG/ML 2 ML SYRINGE (10 MG total) IV ONE (01:33)
--- NOTE | 2019-06-01 01:39 | ED ---
Headache - HPI Summary HPI Summary: Patient is a 49 year old M presenting to [facility] accompanied by with a chief complaint of headache since yesterday, 05/30/19. Patient reports he has BELL every couple of weeks but denies similar symptoms to current symptoms. Patient reports coughing fits until vomiting and taking ibuprofen for symptoms which usually helps but which did not alleviate any current symptoms. Pain is rated 8/ 10. Patient denies SOB, CP, or photophobia. Patient reports he also takes medications for diabetes and HTN. Patient reports fevers with 101 F measured at home prior today, 05/31/19. Patient went to Urgent Care where he was given Tylenol and Ibuprofen. Per triage, patient sent from evaluation of dizziness , hot flashes, headache since yesterday and appears very diaphoretic, near syncopal episode in triage. Hx psoriasis. Patient is a smoker. Symptoms aggravated by nothing. Symptoms alleviated by nothing. - History Of Current Complaint Chief Complaint: EDDizziness Stated Complaint: LIGHT HEADED,SICK PER PT Time Seen by Provider: 05/31/19 23:43 Hx Obtained From: Patient Onset/Duration: Started days ago, Still Present Currently Pain Is: Severe Timing: Days Associated Signs And Symptoms: Dizziness, Fever, Other (Noted In Comments) - negative - CP, SOB, photophobia; positive - BELL, cough, vomiting, fever, dizziness, hot flashes, diaphoretic, near syncopal - Allergies/Home Medications Allergies/Adverse Reactions: Allergies Allergy/AdvReac Type Severity Reaction Status Date / Time No Known Allergies Allergy Verified 05/31/19 19:53 Home Medications: Home Medications Dapagliflozin Propanediol [Farxiga] 5 mg PO DAILY 06/01/19 [History Confirmed ] Ropinirole TAB* [Requip TAB*] 3 mg PO BEDTIME 06/01/19 [History Confirmed ] traZODone TAB* [Desyrel TAB*] 100 mg PO BEDTIME 06/01/19 [History Confirmed ] PMH/Surg Hx/FS Hx/Imm Hx Endocrine/Hematology History: Reports: Hx Diabetes - type 2 dm Denies: Hx Thyroid Disease Cardiovascular History: Reports: Hx Hypertension Musculoskeletal History: Denies: Hx Scoliosis Infectious Disease History: No Infectious Disease History: Denies: Traveled Outside the [place] in Last 30 Days - Family History Known Family History: Negative: Blood Disorder - Social History Alcohol Use: None Substance Use Type: Reports: None Smoking Status (MU): Heavy Every Day Tobacco Smoker Type: Cigarettes Amount Used/How Often: 1 PPD Length of Time of Smoking/Using Tobacco: 20 YEARS Have You Smoked in the Last Year: Yes Review of Systems Constitutional: Other - positive - hot flashes Positive: Fever, Skin Diaphoresis Negative: Photophobia Negative: Chest Pain Positive: Cough. Negative: Shortness Of Breath Positive: Vomiting Neurological: Other - positive - dizziness Positive: Syncope - near All Other Systems Reviewed And Are Negative: Yes Physical Exam - Summary Physical Exam Summary: VITAL SIGNS: Reviewed. GENERAL: Patient is a well-developed and nourished male who is lying comfortable in the stretcher. Patient is not in any acute respiratory distress. HEAD AND FACE: No signs of trauma. No ecchymosis, hematomas or skull depressions. No sinus tenderness. EYES: PERRLA, EOMI x 2, No injected conjunctiva, no nystagmus. EARS: Hearing grossly intact. Ear canals and tympanic membranes are within normal limits. MOUTH: Oropharynx within normal limits. NECK: Supple, trachea is midline, no adenopathy, no JVD, no carotid bruit, no c- spine tenderness, neck with full ROM CHEST: Symmetric, no tenderness at palpation LUNGS: Clear to auscultation bilaterally. No wheezing or crackles. CVS: Regular rate and rhythm, S1 and S2 present, no murmurs or gallops appreciated. ABDOMEN: Soft, non-tender. No signs of distention. No rebound no guarding, and no masses palpated. Bowel sounds are normal. EXTREMITIES: FROM in all major joints, no edema, no cyanosis or clubbing. NEURO: Alert and oriented x 3. No acute neurological deficits. Speech is normal and follows commands. SKIN: Dry and warm Triage Information Reviewed: Yes Vital Signs On Initial Exam: Initial Vitals Temp Pulse Resp BP Pulse Ox 98.3 F 79 20 108/70 95 05/31/19 23:21 05/31/19 23:21 05/31/19 23:21 05/31/19 23:21 05/31/19 23:21 Vital Signs Reviewed: Yes Diagnostics - Vital Signs Vital Signs Temp Pulse Resp BP Pulse Ox 06/01/19 01:05 18 07/18/19 01:01 96 F 82 20 140/78 97 05/31/19 23:21 98.3 F 79 20 108/70 95 - Laboratory Lab Results: Lab Results 06/01/19 06/01/19 06/01/19 Range/Units 00:28 00:28 00:28 WBC 14.9 H (3.5-10.8) 10^3/uL RBC 4.82 (4.18-5.48) 10^6 /uL Hgb 14.1 (14.0-18.0) g/dL Hct 41 L (42-52) % MCV 85 (80-94) fL MCH 29 (27-31) pg MCHC 34 (31-36) g/dL RDW 15 (10-15) % Plt Count 161 (150-450) 10^3/uL MPV 8.2 (7.4-10.4) fL Neut % (Auto) 82.5 % Lymph % (Auto) 10.6 % [place] % (Auto) 6.5 % Eos % (Auto) 0.2 % Baso % (Auto) 0.2 % Absolute Neuts (auto) 12.3 H (1.5-7.7) 10^3/ul Absolute Lymphs (auto) 1.6 (1.0-4.8) 10^3/ul Absolute Monos (auto) 1.0 H (0-0.8) 10^3/ul Absolute Eos (auto) 0.0 (0-0.6) 10^3/ul Absolute Basos (auto) 0.0 (0-0.2) 10^3/ul Absolute Nucleated RBC 0.0 10^3/ul Nucleated RBC % 0.1 INR (Anticoag Therapy) 1.33 H (0.82-1.09) APTT 38.7 H (26.0-38.0) seconds Sodium 129 L (135-145) mmol/L Potassium 3.8 (3.5-5.0) mmol/L Chloride 99 L (101-111) mmol/L Carbon Dioxide 21 L (22-32) mmol/L Anion Gap 9 (2-11) mmol/L BUN 18 (6-24) mg/dL Creatinine 1.13 (0.67-1.17) mg/dL Est GFR ( Amer) 83.5 (>60) Est GFR (Non-Af Amer) 69.0 (>60) BUN/Creatinine Ratio 15.9 (8-20) Glucose 152 H (70-100) mg/dL Lactic Acid (0.5-2.0) mmol/L Calcium 8.7 (8.6-10.3) mg/dL Total Bilirubin 1.30 H (0.2-1.0) mg/dL AST 17 (13-39) U/L ALT 19 (7-52) U/L Alkaline Phosphatase 47 (34-104) U/L Total Protein 6.8 (6.4-8.9) g/dL Albumin 3.8 (3.2-5.2) g/dL Globulin 3.0 (2-4) g/dL Albumin/Globulin Ratio 1.3 (1-3) / Range/Units 00:28 WBC (3.5-10.8) 10^3/uL RBC (4.18-5.48) 10^6 /uL Hgb (14.0-18.0) g/dL Hct (42-52) % MCV (80-94) fL MCH (27-31) pg MCHC (31-36) g/dL RDW (10-15) % Plt Count (150-450) 10^3/uL MPV (7.4-10.4) fL Neut % (Auto) % Lymph % (Auto) % [place] % (Auto) % Eos % (Auto) % Baso % (Auto) % Absolute Neuts (auto) (1.5-7.7) 10^3/ul Absolute Lymphs (auto) (1.0-4.8) 10^3/ul Absolute Monos (auto) (0-0.8) 10^3/ul Absolute Eos (auto) (0-0.6) 10^3/ul Absolute Basos (auto) (0-0.2) 10^3/ul Absolute Nucleated RBC 10^3/ul Nucleated RBC % INR (Anticoag Therapy) (0.82-1.09) APTT (26.0-38.0) seconds Sodium (135-145) mmol/L Potassium (3.5-5.0) mmol/L Chloride (101-111) mmol/L Carbon Dioxide (22-32) mmol/L Anion Gap (2-11) mmol/L BUN (6-24) mg/dL Creatinine (0.67-1.17) mg/dL Est GFR ( Amer) (>60) Est GFR (Non-Af Amer) (>60) BUN/Creatinine Ratio (8-20) Glucose (70-100) mg/dL Lactic Acid 1.3 (0.5-2.0) mmol/L Calcium (8.6-10.3) mg/dL Total Bilirubin (0.2-1.0) mg/dL AST (13-39) U/L ALT (7-52) U/L Alkaline Phosphatase (34-104) U/L Total Protein (6.4-8.9) g/dL Albumin (3.2-5.2) g/dL Globulin (2-4) g/dL Albumin/Globulin Ratio (1-3) Result Diagrams: 06/01/19 00:28 06/01/19 00:28 Lab Statement: Any lab studies that have been ordered have been reviewed, and results considered in the medical decision making process. - EKG 2325 Cardiac Rate: NL - rate of 80 BPM Summary of EKG Findings: EKG showed sinus rhythm with rate of 80 BPM, Q waves in inferior leads. Headache Course/Dx - Course Course Of Treatment: Patient is a 49 year old M presenting to [facility] accompanied by with a chief complaint of headache since yesterday, 05/30/19. Patient reports he has BELL every couple of weeks but denies similar symptoms to current symptoms. Patient reports coughing fits until vomiting and taking ibuprofen for symptoms which usually helps but which did not alleviate any current symptoms. Pain is rated 8/10. Patient denies SOB, CP, or photophobia. Patient reports he also takes medications for diabetes and HTN. Patient reports fevers with 101 F measured at home prior today, 05/31/19. Patient went to Urgent Care where he was given Tylenol and Ibuprofen. Per triage, patient sent from evaluation of dizziness, hot flashes, headache since yesterday and appears very diaphoretic, near syncopal episode in triage. Labs showed WBC 14.9, Hct 41, absolute neuts 12.3, absolute monos 1, INR 1.33, APTT 38.7, sodium 129, chloride 99, carbon dioxide 21, glucose 152, lactic acid 1.3, total bilirubin 1.3. During ED course , patient received fluids, reglan 10 mg IV, Ativan 2 mg IV, leavquin 750 mg IVpremix, 750 mg in 150 mls @ 100 mls/hr IVPB, toradol 15 mg IV, Benadryl 25 mg SLOW PUSH. EKG showed sinus rhythm with rate of 80 BPM, Q waves in inferior leads. Patient had been seen at [facility] earlier today, CXR was done and had findings suggestive of PNA, which resulted in the patient being sent to ED for further workup. Patient's case was discussed with Dr. Bernard, Dr. Bernard accepts the patient for admission. - Diagnoses Provider Diagnoses: Pneumonia - Physician Notifications Discussed Care Of Patient With: Rico Bernard Time Discussed With Above Provider: 01:15 Instructed by Provider To: Admit As Inpatient Discharge - Sign-Out/Discharge Documenting (check all that apply): Patient Departure - admit Patient Received Moderate/Deep Sedation with Procedure: No - Discharge Plan Condition: Stable Disposition: ADMITTED TO [facility] Referrals: Oracio Hurley TYPEWRITER ASSEMBLER [Primary Care Provider] - - Attestation Statements Document Initiated by Scribe: Yes Documenting Scribe: Kecia Marcum Provider For Whom Kraigibe is Documenting (Include Credential): Anderson Hatfield MD Scribe Attestation: I, Kecia Marcum, scribed for Anderson Hatfield MD on 06/01/19 at 0515. Status of Scribe Document: Ready
--- NOTE | 2019-06-01 04:29 | HP ---
History of Present Illness - History of Present Illness Reason for Visit: Headache and fever. History of Present Illness: Patient is a 49 year old Male with DM, HTN was sent from [facility] for headache and fever. Patient states his main complaint was that of headache since yesterday. Also noted to have cough and fever at home of 101F. Patient denies SOB, CP, or photophobia. Cough is productive of sputum which is clear to yellowish in color. The headache itself has resolved during my evaluation. Patient has no other neck stiffness with the headache. Allergies Allergy/AdvReac Type Severity Reaction Status Date / Time No Known Allergies Allergy Verified 05/31/19 19:53 Home Medications Medication Instructions Recorded Confirmed Type Lisinopril TAB* [Prinivil TAB*] 10 mg PO DAILY 10/13/12 06/01/19 History metFORMIN* [Glucophage TAB*] 500 mg PO BID 10/13/12 06/01/19 History Tiotropium Brom/Olodaterol(NF) 4 gm PO DAILY 01/03/18 06/01/19 History [Stiolto Respimat Inhal Alborn] Dapagliflozin Propanediol [Farxiga] 5 mg PO DAILY 06/01/19 06/01/19 History Ropinirole TAB* [Requip TAB*] 3 mg PO BEDTIME 06/01/19 06/01/19 History traZODone TAB* [Desyrel TAB*] 100 mg PO BEDTIME 06/01/19 06/01/19 History - Past Medical History Cardiac: HTN Musculoskeletal: Other - Sciatic nerve pain Rheumatologic: Other - Psoriasis Endocrine: Diabetes - Past Surgical History Past Surgical History: None - Past Family History Family History: CAD - Mother had heart attack, DM - Father - Past Social History Smoke: 2 packs per day - 30 years. Occupation: [employer]. Alcohol: None Drugs: None Lives: With Family - Lives with . Review of Systems - Measurements Intake and Output: Intake and Output Last 24 Hours 05/29/19 05/30/19 05/31/19 06/01/19 06:59 06:59 06:59 06:59 Weight 313 lb - Review of Systems Constitutional Symptoms: Positive: Fever Pulmonary: Positive: Cough, Sputum Cardiology: Negative: Chest Pain, Shortness of Breath, Palpitations Gastroenterology: Negative: Abdominal Pain, Nausea, Vomiting, Diarrhea Objective Active Medications: Miscellaneous (Ativan Pyxis Gaspar) 1 ea N/A .ATIVAN IV GASPAR PRN PRN Reason: PYXIS GASPAR Vital Signs - 8 hr 05/31/19 06/01/19 06/01/19 23:21 01:00 01:01 Temperature 98.3 F 96 F Pulse Rate 79 82 82 Respiratory 20 20 Rate Blood Pressure 108/70 140/78 140/78 (mmHg) O2 Sat by Pulse 95 97 97 Oximetry 06/01/19 06/01/19 06/01/19 01:02 01:05 02:00 Temperature Pulse Rate 84 93 Respiratory 18 Rate Blood Pressure (mmHg) O2 Sat by Pulse 96 96 Oximetry 06/01/19 06/01/19 06/01/19 03:01 03:08 03:31 Temperature Pulse Rate 99 100 105 Respiratory Rate Blood Pressure 152/104 124/106 (mmHg) O2 Sat by Pulse 97 96 95 Oximetry Oxygen Devices in Use Now: None Eyes: No Scleral Icterus, PERRLA Ears/Nose/Mouth/Throat: NL Teeth, Lips, Gums, Clear Oropharnyx, Mucous Membranes Moist Neck: NL Appearance and Movements; NL JVP Respiratory: - - Diffuse wheezing noted with very faint ronchi. Cardiovascular: NL Sounds; No Murmurs; No JVD - Noted to be tachycardic. Abdominal: NL Sounds; No Tenderness; No Distention, No Hepatosplenomegaly Extremities: No Edema, No Clubbing, Cyanosis, - - Psoriatic changes noted around the elbows. Skin: No Rash or Ulcers Neurological: Alert and Oriented x 3, NL Sensation, NL Muscle Strength and Tone Nutrition: Taking PO's Result Diagrams: 06/01/19 00:28 06/01/19 00:28 Additional Lab and Data: Lab Results 06/01/19 06/01/19 06/01/19 Range/Units 00:28 00:28 00:28 WBC 14.9 H (3.5-10.8) 10^3/uL RBC 4.82 (4.18-5.48) 10^6 /uL Hgb 14.1 (14.0-18.0) g/dL Hct 41 L (42-52) % MCV 85 (80-94) fL MCH 29 (27-31) pg MCHC 34 (31-36) g/dL RDW 15 (10-15) % Plt Count 161 (150-450) 10^3/uL MPV 8.2 (7.4-10.4) fL Neut % (Auto) 82.5 % Lymph % (Auto) 10.6 % [place] % (Auto) 6.5 % Eos % (Auto) 0.2 % Baso % (Auto) 0.2 % Absolute Neuts (auto) 12.3 H (1.5-7.7) 10^3/ul Absolute Lymphs (auto) 1.6 (1.0-4.8) 10^3/ul Absolute Monos (auto) 1.0 H (0-0.8) 10^3/ul Absolute Eos (auto) 0.0 (0-0.6) 10^3/ul Absolute Basos (auto) 0.0 (0-0.2) 10^3/ul Absolute Nucleated RBC 0.0 10^3/ul Nucleated RBC % 0.1 INR (Anticoag Therapy) 1.33 H (0.82-1.09) APTT 38.7 H (26.0-38.0) seconds Sodium 129 L (135-145) mmol/L Potassium 3.8 (3.5-5.0) mmol/L Chloride 99 L (101-111) mmol/L Carbon Dioxide 21 L (22-32) mmol/L Anion Gap 9 (2-11) mmol/L BUN 18 (6-24) mg/dL Creatinine 1.13 (0.67-1.17) mg/dL Est GFR ( Amer) 83.5 (>60) Est GFR (Non-Af Amer) 69.0 (>60) BUN/Creatinine Ratio 15.9 (8-20) Glucose 152 H (70-100) mg/dL Lactic Acid (0.5-2.0) mmol/L Calcium 8.7 (8.6-10.3) mg/dL Total Bilirubin 1.30 H (0.2-1.0) mg/dL AST 17 (13-39) U/L ALT 19 (7-52) U/L Alkaline Phosphatase 47 (34-104) U/L Total Protein 6.8 (6.4-8.9) g/dL Albumin 3.8 (3.2-5.2) g/dL Globulin 3.0 (2-4) g/dL Albumin/Globulin Ratio 1.3 (1-3) 06/01/19 Range/Units 00:28 WBC (3.5-10.8) 10^3/uL RBC (4.18-5.48) 10^6 /uL Hgb (14.0-18.0) g/dL Hct (42-52) % MCV (80-94) fL MCH (27-31) pg MCHC (31-36) g/dL RDW (10-15) % Plt Count (150-450) 10^3/uL MPV (7.4-10.4) fL Neut % (Auto) % Lymph % (Auto) % [place] % (Auto) % Eos % (Auto) % Baso % (Auto) % Absolute Neuts (auto) (1.5-7.7) 10^3/ul Absolute Lymphs (auto) (1.0-4.8) 10^3/ul Absolute Monos (auto) (0-0.8) 10^3/ul Absolute Eos (auto) (0-0.6) 10^3/ul Absolute Basos (auto) (0-0.2) 10^3/ul Absolute Nucleated RBC 10^3/ul Nucleated RBC % INR (Anticoag Therapy) (0.82-1.09) APTT (26.0-38.0) seconds Sodium (135-145) mmol/L Potassium (3.5-5.0) mmol/L Chloride (101-111) mmol/L Carbon Dioxide (22-32) mmol/L Anion Gap (2-11) mmol/L BUN (6-24) mg/dL Creatinine (0.67-1.17) mg/dL Est GFR ( Amer) (>60) Est GFR (Non-Af Amer) (>60) BUN/Creatinine Ratio (8-20) Glucose (70-100) mg/dL Lactic Acid 1.3 (0.5-2.0) mmol/L Calcium (8.6-10.3) mg/dL Total Bilirubin (0.2-1.0) mg/dL AST (13-39) U/L ALT (7-52) U/L Alkaline Phosphatase (34-104) U/L Total Protein (6.4-8.9) g/dL Albumin (3.2-5.2) g/dL Globulin (2-4) g/dL Albumin/Globulin Ratio (1-3) Diagnostic Imaging: CXR suggests RML infiltrate. Official radiology read pending. EKG Data: Sinus rhythm at 80bpm no old EKG to compare. Assess/Plan/Problems-Billing Assessment: 49yoM with DM, HTN, Psoriasis, Sciatic nerve pain here due to headache, fever. Noted to have RUL PNA. Possible COPD exacerbation. - Patient Problems (1) Sepsis due to pneumonia Current Visit: Yes Status: Acute Code(s): J18.9 - PNEUMONIA, UNSPECIFIED ORGANISM; A41.9 - SEPSIS, UNSPECIFIED ORGANISM SNOMED Code(s): 33618091 Comment: SIRS with tahycardia, elevated WBC. Started on levaquin. Follow up sputum cultures. Check Urine legionella antigen given low Na. (2) COPD exacerbation Current Visit: Yes Status: Acute Code(s): J44.1 - CHRONIC OBSTRUCTIVE PULMONARY DISEASE W (ACUTE) EXACERBATION SNOMED Code(s): 895813393 Comment: Possible COPD given wheezing and smoking use. Start steroids, nebs. (3) HTN (hypertension) Current Visit: Yes Status: Chronic Code(s): I10 - ESSENTIAL (PRIMARY) HYPERTENSION SNOMED Code(s): 63771450 Comment: Restart home medications. (4) Type 2 diabetes mellitus Current Visit: Yes Status: Chronic Comment: Hold metformin for now. Continue dapagliflozin. (5) Psoriasis Current Visit: Yes Status: Chronic Code(s): L40.9 - PSORIASIS, UNSPECIFIED SNOMED Code(s): 3938897 (6) DVT prophylaxis Current Visit: Yes Status: Acute Code(s): Z29.9 - ENCOUNTER FOR PROPHYLACTIC MEASURES, UNSPECIFIED SNOMED Code(s): 478048006 Comment: SCDs
[2019-06-01] MEDS ORDERED: Albuterol 2.5 MG/3 ML NEB.SOL* (0.083%) INH PRN (04:37)
[2019-06-01 04:39] VITALS: BP 147/105
[2019-06-01 04:46] LABS: Urine Appearance Clear; Urine Bacteria Absent (Absent); Urine Bilirubin Negative (Negative); Urine Blood 1+ (Negative); Urine Color Amber; Urine Glucose Negative (Negative); Urine Ketones Negative (Negative); Urine Nitrite Negative (Negative); Urine Protein Negative (Negative); Urine Red Blood Cell 1+(3-5/hpf) (Absent); Urine Specific Gravity 1.018 (1.010-1.030); Urine Squamous Epithelial Cell Present (Absent); Urine Urobilinogen Negative (Negative); Urine White Blood Cell Trace(0-5/hpf) (Absent)
[2019-06-01] MEDS ORDERED: methylPREDNISolone SOD 40 MG* 1 ML VIAL IV SCH (05:00)
[2019-06-01 05:33] LABS: ABS Lymphocytes 0.8 10^3/ul (1.0-4.8); ABS Monocytes 1.2 10^3/ul (0-0.8); ABS Neutrophils 12.4 10^3/ul (1.5-7.7); Eosinophil % 0.1 %; Hematocrit 41 % (42-52); Hemoglobin 14.1 g/dL (14.0-18.0); Lymphocyte % 5.6 %; Mean Corpuscular HGB Conc 35 g/dL (31-36); Mean Corpuscular Hemoglobin 29 pg (27-31); Mean Corpuscular Volume 85 fL (80-94); Mean Platelet Volume 8.6 fL (7.4-10.4); Nucleated Red Blood Cells % 0.1; Platelet Count 152 10^3/uL (150-450); Red Cell Distribution Width 15 % (10-15); White Blood Count 14.5 10^3/uL (3.5-10.8)
[2019-06-01 05:42] LABS: BUN/Creatinine Ratio 16.8 (8-20); Calcium 8.4 mg/dL (8.6-10.3); EGFR African American 88.9 (>60); EGFR Non-African American 73.5 (>60); Potassium 4.3 mmol/L (3.5-5.0)
[2019-06-01] MEDS ORDERED: Lisinopril TAB* 10 MG PO SCH (09:00)
[2019-06-01] MEDS ORDERED: Tiotropium Brom/Olodaterol(NF) 4 GM 60 PUFF MDI INH SCH (09:00)
[2019-06-01] MEDS ORDERED: DAPAGLIFLOZIN PROPANEDIOL 5 MG PO SCH (09:00)
--- NOTE | 2019-06-01 09:05 | PN ---
Progress Note - Progress Note Date of Service: 06/01/19 Note: Patient's urine was positive for Legionella. Patient signed out AMA today. Call patient informed results and that sent a prescription for Levaquin 750mg for 7 days. Told symptoms are worsening to return.
[2019-06-01] MEDS ORDERED: Levofloxacin 750 MG IVPREMIX(* 750 MG/150 ML BAG IVPB SCH (20:00)
[2019-06-01] MEDS ORDERED: traZODone TAB* 100 MG PO SCH (21:00)
[2019-06-01] MEDS ORDERED: Ropinirole TAB* 0.5 MG TAB PO SCH (21:00)
== END 2019-06-01 05:33 | disposition left against medical advice (07) ==
LOC: ED 23:10
DX: J18.9 Pneumonia, unspecified organism (principal); R42 Dizziness and giddiness; F17.210 Nicotine dependence, cigarettes, uncomplicated; E11.9 Type 2 diabetes mellitus without complications; I10 Essential (primary) hypertension
CPT/HCPCS: 36415; 80048; 80053; 81003; 81015; 83605; 85025; 85610; 85730; 87040; 87086; 87899; 93005; 96365; 96366; 96375; 99284; J1200; J1885; J2060; J2765; J3360

== ENCOUNTER 2019-06-14 05:21 | Inpatient (IN) | payer BC ==
[2019-06-14] MEDS ORDERED: Aspirin 81 mg CHEW TAB* 81 MG TAB.CHEW ONE (05:29)
[2019-06-14] MEDS ORDERED: Nitroglycerin TAB 0.4 MG* 0.4 MG TAB ONE (05:29)
[2019-06-14] MEDS ORDERED: Aspirin 81 mg CHEW TAB* 81 MG TAB.CHEW PO ONE (05:29)
[2019-06-14] MEDS ORDERED: Morphine INJ* 10 MG/ML 1 ML CARPUJECT IV ONE ×2 (05:30→05:45)
[2019-06-14] MEDS ORDERED: Ondansetron INJ* 2 MG/ML VIAL IV ONE (05:30)
[2019-06-14] MEDS ORDERED: Ticagrelor* 90 MG TAB PO ONE ×2 (05:30→05:31)
[2019-06-14] MEDS ORDERED: Heparin for STEMI(*) 5,000 UNITS/ML 1 ML VIAL IV ONE ×2 (05:30)
[2019-06-14] MEDS ORDERED: Metoclopramide IV* 5 MG/ML 2 ML VIAL IV SLOW PU ONE (05:32)
--- NOTE | 2019-06-14 05:32 | ED ---
HPI Cardiac - HPI Summary HPI Summary: This patient is a 49 year old M presenting to [facility] accompanied by with a chief complaint of central chest pain radiating to jaw since [id number]. Pt has diabetes, HTN, no previous AZ. - History of Current Complaint Stated Complaint: CHEST PAIN PER PT Time Seen by Provider: 06/14/19 05:28 Hx Obtained From: Patient Onset/Duration: Started Hours Ago, Still Present Time of Onset: 04:00 Timing: Constant, Lasting Hours Pain Intensity: 6 Pain Scale Used: 0-10 Numeric Chest Pain Radiates: Yes Chest Pain Radiates To:: Jaw Associated Signs and Symptoms: Positive: Chest Pain - Allergy/Home Medications Allergies/Adverse Reactions: Allergies Allergy/AdvReac Type Severity Reaction Status Date / Time No Known Allergies Allergy Verified 06/14/19 05:44 Home Medications: Home Medications Tradjenta (NF) 06/14/19 [History] PMH/Surg Hx/FS Hx/Imm Hx Endocrine/Hematology History: Reports: Hx Diabetes - type 2 dm Denies: Hx Thyroid Disease Cardiovascular History: Reports: Hx Hypertension Musculoskeletal History: Denies: Hx Scoliosis - Family History Known Family History: Negative: Blood Disorder - Social History Lives: With Family Alcohol Use: None Substance Use Type: Reports: None Hx Tobacco Use: Yes Smoking Status (MU): Heavy Every Day Tobacco Smoker Type: Cigarettes Amount Used/How Often: 1 PPD Length of Time of Smoking/Using Tobacco: 20 YEARS Have You Smoked in the Last Year: Yes Review of Systems Positive: Skin Diaphoresis Positive: Chest Pain Positive: Other - pos - jaw pain All Other Systems Reviewed And Are Negative: Yes Physical Exam - Summary Physical Exam Summary: VITAL SIGNS: Reviewed. GENERAL: Patient is a well-developed and nourished male who is lying comfortable in the stretcher. Patient is not in any acute respiratory distress. Pt is morbidly obese and diaphoretic. HEAD AND FACE: No signs of trauma. No ecchymosis, hematomas or skull depressions. No sinus tenderness. EYES: PERRLA, EOMI x 2, No injected conjunctiva, no nystagmus. EARS: Hearing grossly intact. Ear canals and tympanic membranes are within normal limits. MOUTH: Oropharynx within normal limits. NECK: Supple, trachea is midline, no adenopathy, no JVD, no carotid bruit, no c- spine tenderness, neck with full ROM CHEST: Symmetric, no tenderness at palpation. V-tach LUNGS: Clear to auscultation bilaterally. No wheezing or crackles. CVS: Regular rate and rhythm, S1 and S2 present, no murmurs or gallops appreciated. ABDOMEN: Soft, non-tender. No signs of distention. No rebound no guarding, and no masses palpated. Bowel sounds are normal. EXTREMITIES: FROM in all major joints, no edema, no cyanosis or clubbing. NEURO: Alert and oriented x 3. No acute neurological deficits. Speech is normal and follows commands. SKIN: Dry and warm Triage Information Reviewed: Yes Vital Signs On Initial Exam: Initial Vital Signs Temp 97.4 F 06/14/19 05:31 Pulse 79 06/14/19 05:31 Resp 32 06/14/19 05:31 BP 170/109 06/14/19 05:31 Pulse Ox 100 06/14/19 05:31 Vital Signs Reviewed: Yes Procedures - Additional Procedures Additional Procedures: cardioversion/defib - Pt in V-tach and was defibrillated with 200 J Diagnostics - Laboratory Result Diagrams: 06/14/19 05:35 06/14/19 05:35 Lab Statement: Any lab studies that have been ordered have been reviewed, and results considered in the medical decision making process. - Radiology CXR Radiology Interpretation Completed By: ED Physician Summary of Radiographic Findings: CXR reveals, large density over right upper lobe bigger comparing to CXR done on 05/31/19. ED physician has reviewed this radiology report. Pending official radiology report. - EKG 0524 EKG Rhythm: Sinus Rhythm Summary of EKG Findings: An EKG at 0524 reveals sinus 76 bpm, ST-elevation in inferior leads, and ST-depression in high later leads, consistent with inferior wall AZ, PVCs Re-Evaluation - Re-Evaluation First Eval Re-Evaluation Time: 05:46 Change: Worse Comment: Pt is in V-Tach Disposition - Course Course Of Treatment: This patient is a 49 year old M presenting to [facility] accompanied by with a chief complaint of central chest pain radiating to jaw since [id number]. Pt has diabetes, HTN, no previous AZ. Pt is diaphoretic, and morbidly obese. Pt in V-tach and was defibrillated with 200 J. Blood work obtained. UA obtained. An EKG at 0524 reveals sinus 76 bpm, ST-elevation in inferior leads, and ST-depression in high later leads, consistent with inferior wall AZ, PVCs. CXR reveals, per radiologist, large density over right upper lobe bigger comparing to CXR done on 05/31/19. In the ED course the patient was given brilinta, morphine, Zofran, reglan, nitroglycerin drip, Lipitor, Lopressor and baby aspirin. We discussed patient care with Dr. Dwyer and he accepts pt for admission. Patient will be admitted. The patient is agreeable with this plan. - Diagnoses Provider Diagnoses: Acute AZ, inferior wall - Physician Notifications Discussed Care Of Patient With: Rudy Dwyer Time Discussed With Above Provider: 05:32 Instructed by Provider To: Other - Discussed case with Dr. Dwyer who will come down to the ED. Dr. Dwyer recommends giving [address] Dwyer accepts pt for admission. Discharge - Sign-Out/Discharge Documenting (check all that apply): Patient Departure - Admit Patient Received Moderate/Deep Sedation with Procedure: No - Discharge Plan Condition: Stable Disposition: ADMITTED TO [facility] - Attestation Statements Document Initiated by Scribe: Yes Documenting Scribe: Micheline Jernigan Provider For Whom Scribe is Documenting (Include Credential): Dr. Anderson Hatfield MD Scribe Attestation: Micheline Fernandez, scribed for Dr. Anderson Hatfield MD on 06/14/19 at 0614. Status of Scribe Document: Ready
[2019-06-14] MEDS ORDERED: Metoprolol Tartrate IV* 1 MG/ML 5 ML VIAL IV ONE ×2 (05:34→05:45)
[2019-06-14] MEDS ORDERED: Morphine 10 MG/ML VIAL (1 ml) ONE (05:35)
[2019-06-14] MEDS ORDERED: Morphine 10 MG/ML VIAL (1 ml) IV ONE (05:38)
[2019-06-14] MEDS ORDERED: Atorvastatin* 80 MG TAB PO ONE (05:38)
[2019-06-14 05:40] LABS: ABS Basophils 0.1 10^3/ul (0-0.2); ABS Eosinophils 0.1 10^3/ul (0-0.6); ABS Lymphocytes 1.8 10^3/ul (1.0-4.8); ABS Monocytes 0.6 10^3/ul (0-0.8); ABS Neutrophils 7.5 10^3/ul (1.5-7.7); Eosinophil % 0.9 %; Hematocrit 45 % (42-52); Hemoglobin 15.8 g/dL (14.0-18.0); Lymphocyte % 17.9 %; Mean Corpuscular HGB Conc 35 g/dL (31-36); Mean Corpuscular Hemoglobin 29 pg (27-31); Mean Corpuscular Volume 83 fL (80-94); Mean Platelet Volume 7.4 fL (7.4-10.4); Nucleated Red Blood Cells % 0.1; Platelet Count 358 10^3/uL (150-450); Red Blood Count 5.45 10^6 /uL (4.18-5.48); Red Cell Distribution Width 15 % (10-15); White Blood Count 10.1 10^3/uL (3.5-10.8)
[2019-06-14] MEDS ORDERED: Amiodarone IV VIAL* 3 ML ONE (05:47)
[2019-06-14] MEDS ORDERED: Metoprolol Tartrate IV* 1 MG/ML 5 ML VIAL ONE (05:49)
[2019-06-14] MEDS ORDERED: nitroGLYCERIN DRIP* 25,000 MCG/250 ML BTL ONE ×2 (05:50→05:52)
[2019-06-14] MEDS ORDERED: Lidocaine 1% INJ* 10 MG/ML 30 ML SDV ONE (05:50)
[2019-06-14] MEDS ORDERED: Heparin(*) 1000 UNIT/ML 10 ML VIAL CATH LAB IV ONE (05:50)
[2019-06-14] MEDS ORDERED: Amiodarone 360 MG IVPREMIX* 360 MG/200 ML BAG IV ONE ×2 (05:50→06:07)
[2019-06-14] MEDS ORDERED: VERAPAMIL 2.5 MG/ML 2 ML VIAL ** 5 mg/2 ml ONE ×2 (05:50→06:15)
[2019-06-14] MEDS ORDERED: Amiodarone 150 MG IVPREMIX* 150 MG/100 ML BAG IV ONE ×2 (05:51→06:07)
[2019-06-14 05:53] LABS: Activated Partial Thrombo Time 35.8 seconds (26.0-38.0); INR 1.03 (0.82-1.09)
[2019-06-14 05:57] LABS: Albumin 4.1 g/dL (3.2-5.2); Albumin/Globulin Ratio 1.2 (1-3); BUN/Creatinine Ratio 17.9 (8-20); Calcium 9.6 mg/dL (8.6-10.3); EGFR Non-African American 84.3 (>60); Globulin 3.3 g/dL (2-4); Magnesium 2.1 mg/dL (1.9-2.7); Potassium 4.4 mmol/L (3.5-5.0); Total Bilirubin 0.6 mg/dL (0.2-1.0); Total Protein 7.4 g/dL (6.4-8.9)
[2019-06-14] MEDS ORDERED: Atorvastatin* 80 MG TAB ONE (05:57)
[2019-06-14 05:59] LABS: Troponin I 0.02 ng/mL (<0.04)
[2019-06-14] MEDS ORDERED: Heparin VIAL(*) 5000 UNITS/ML VIAL (FIVE THOUSAND) IV SCH (06:00)
[2019-06-14] MEDS ORDERED: nitroGLYCERIN DRIP* 25,000 MCG/250 ML BTL IV ONE (06:08)
[2019-06-14] MEDS ORDERED: fentaNYL* 50 MCG/ML 2 ML VIAL (100 MCG VIAL) ONE (06:12)
[2019-06-14] MEDS ORDERED: Midazolam* 1 MG/ML 5 ML VIAL (5 MG) ONE (06:12)
[2019-06-14] MEDS ORDERED: Bivalirudin(*) 250 MG VIAL ONE (06:21)
[2019-06-14] MEDS ORDERED: Iohexol 300 (CONTRAST) 10 ML SDV ONE (06:43)
[2019-06-14] MEDS ORDERED: oxyCODONE/Acetamin 5/325 MG* TAB PO PRN (07:32)
[2019-06-14] MEDS ORDERED: Acetaminophen TAB* 325 MG PO PRN (07:32)
[2019-06-14] MEDS ORDERED: Nitroglycerin TAB 0.4 MG* 0.4 MG TAB SL PRN (07:32)
[2019-06-14] MEDS ORDERED: NS 0.9% 1000 ML** 1,000 ML IV SCH (07:45)
[2019-06-14] MEDS ORDERED: Dextrose 50% Syringe 50 ML* 25 GM/50 ML SYRINGE IV PUSH PRN (08:07)
[2019-06-14 08:24] LABS: C Reactive Protein 3.36 mg/L (<8.01)
[2019-06-14] MEDS: Metoprolol Tartrate TAB* 25 MG PO SCH ×3 (09:20→22:02)
--- NOTE | 2019-06-14 10:07 | HP ---
CC: Oracio Hurley NP * ADMISSION HISTORY AND PHYSICAL: DATE OF ADMISSION: 06/14/19 CHIEF COMPLAINT: Chest and jaw discomfort. HISTORY OF PRESENT ILLNESS: The patient is a 49-year-old gentleman with no prior known cardiac history. He specifically denies any history of myocardial infarction, congestive heart failure, or significant heart rhythm disturbance. He was in his usual state of health and was awakened at 3:00 in the morning with chest discomfort that radiated into his jaw. It got significantly worse and he ended up presenting to the emergency room and arrived at the emergency room at 5:21 having been driven by his family. In the emergency room, an initial EKG demonstrated acute HW-jkwbhfi-kmkxnshyy inferior posterior myocardial infarction and a STEMI alert was called. The patient was given a heparin bolus of initially 4000 units and aspirin and Brilinta. An additional 3000 units was given, given his obesity. He had a V-tach arrhythmia that deteriorated into VFib and was shocked out of it to normal sinus. He was given a bolus of amiodarone and placed on an amiodarone drip at 1 mg. When I got to the emergency room, he was still having active chest discomfort. I discussed with him the issue of cardiac catheterization and the risks and benefits, and he wished to proceed. PAST MEDICAL HISTORY: He has a significant past medical history for non-insulin - requiring diabetes mellitus, hypertension, and hyperlipidemia. FAMILY HISTORY: He has no family history of significant coronary artery disease , but does have father who had extensive diabetes mellitus. SOCIAL HISTORY: He has a social history of smoking some 20 pack-years. He denied illicit drug usage. HOME MEDICATIONS: (per ER record) - Metformin 500 mg BID, Farxiga 5 mg daily, Lisinopril 10 mg daily, Stiolto 4gm po daily, Trazodone 100mg at bedtime, Requip 3 mg bedtime. REVIEW OF SYSTEMS: Pertinent to proceed into the cardiovascular laboratory: No history of TIA or stroke. No history of renal insufficiency or kidney disease in general. No known history of bleeding disorders. No known allergy to contrast. PHYSICAL EXAMINATION GENERAL: When I saw him revealed a somewhat anxious gentleman, still having chest discomfort. VITAL SIGNS: Blood pressure 162/111, pulse 87, respirations 20, and O2 saturation 97%. NECK: Thick. It was difficult to appreciate any increased JVP. CHEST: Fairly clear to A and P. Slightly distant in nature due to large chest size. HEART: Revealed regular rate and rhythm; it was distant in nature due to large chest size. I could not appreciate significant diastolic murmur. ABDOMEN: Significantly obese, soft, nontender. EXTREMITIES: Heavy in nature, but no pitting edema. Peripheral pulses were intact. Femoral pulse present. Right radial artery pulse was present and strong as well. MUSCULOSKELETAL: He moves all extremities appropriately. NEUROLOGICAL: The patient seemed alert, oriented, slightly groggy because he had just undergone cardioversion several minutes earlier. PSYCHOLOGICAL: The patient with appropriate affect. DIAGNOSTIC STUDIES/LAB DATA: Laboratory results were pending at the time of this visit. EKG revealed ST-segment elevation in II, III, aVF with reciprocal changes in I, aVL, V2, and V3; 1 PVC was seen. OVERALL ASSESSMENT: The patient presents now approximately 2-1/2 hours at least into an inferior wall HD-mgsiivj-gmzxjvczh myocardial infarction. At this point in time, he has received heparin, aspirin, and Brilinta and I have now added 80 mg of atorvastatin. Emergent cardiac catheterization with helpful intervention will be performed and further management adjusted accordingly. We will most likely consult the hospitalist for diabetic management. [id number]/[facility] #: [id number] TITUS
[2019-06-14] MEDS: Amiodarone 360 MG IVPREMIX* 360 MG/200 ML BAG IV SCH ×3 (11:28→22:00)
[2019-06-14 11:55] LABS: CKMB ng/mL > 304.0 ng/mL (0.6-6.3)
[2019-06-14 11:56] LABS: Troponin I 51.73 ng/mL (<0.04)
[2019-06-14 12:13] LABS: Creatine Kinase 1889 U/L (10-223)
[2019-06-14] MEDS: Insulin LISPRO* 1 UNITS UNIT SUBCUT SCH ×3 (13:11→22:01)
--- NOTE | 2019-06-14 13:23 | ECHO ---
*[facility]* [place] [address] Fax #: [phone] Transthoracic Echocardiogram (Report amended [id number]) Patient: Neto Goddard : 1970 Study Date: 06/14/2019 Age: 49 Gender: M HR: 66 bpm Height: 71 in /180.3 cm BSA: 2.58 m^2 Weight: 319.3 lb /145.2 kg BMI: 44.6 kg/m^2 *Spinning Bath Patroller: * Jordana Reich RDCS RN *Referring Physician: * Rudy Dwyer MD *Reading Physician: * Angel Blanc MD Indications: Myocardial Infarction (new). History: Risk factors: Hypertension. Diabetes mellitus. Obese. Labs, prior tests, procedures, and surgery: Catheterization with coronary intervention. Performed during the current admission. Conclusions Summary: - Left ventricle: The cavity size is at the upper limits of normal. Wall thickness is mildly increased. Systolic function is mildly reduced. The estimated ejection fraction is 50-55%. Doppler parameters are consistent with abnormal left ventricular relaxation (grade 1 diastolic dysfunction). - Right ventricle: The cavity size is normal. Wall thickness is mildly increased. - Mitral valve: There is trace to mild regurgitation. Study data: Transthoracic echocardiogram. Procedure: Transthoracic echocardiography was performed. Image quality was fair. The study was technically limited due to body habitus. Complete 2D, spectral Doppler, and color flow Doppler. Location: Bedside. Patient status: Inpatient. Patient room number: ICU 4. No prior study is available for comparison. Rhythm: Normal sinus rhythm with PVC's. Findings Left ventricle: The cavity size is at the upper limits of normal. Wall thickness is mildly increased. Systolic function is mildly reduced. The estimated ejection fraction is 50-55%. Regional wall motion abnormalities: Hypokinesis of the basal-midinferior myocardium. Dyskinesis of the basal inferior myocardium; severe hypokinesis of the mid inferior myocardium; hypokinesis of the mid inferoseptal myocardium; moderate hypokinesis of the apical inferior myocardium. Doppler parameters are consistent with abnormal left ventricular relaxation (grade 1 diastolic dysfunction). Right ventricle: The cavity size is normal. Wall thickness is mildly increased. Systolic function is normal. Left atrium: The atrium is normal in size. Right atrium: The atrium is normal in size. Mitral valve: The leaflets are mildly thickened. There is no evidence of stenosis. There is trace to mild regurgitation. Aortic valve: Not well visualized. The leaflets are mildly thickened. There is no evidence of stenosis. There is no significant regurgitation. Tricuspid valve: The leaflets are normal thickness. There is no evidence of stenosis. There is trace regurgitation. Pulmonic valve: The leaflets are normal thickness. There is no evidence of stenosis. There is trace regurgitation. Aorta: Aortic root: The aortic root is not dilated. Ascending aorta: The ascending aorta is not dilated. Aortic arch: The aortic arch is not dilated. Pericardium: There is no pericardial effusion. Pulmonary arteries: The main pulmonary artery is normal-sized. Systolic pressure can not be accurately estimated. Systemic veins: Inferior vena cava: The vessel is normal in size. There is (< 50%) respiratory change in the IVC dimension. Measurements Left ventricle Value Ref Aortic valve Value Ref JOSEY, LAX 5.8 cm 4.2 - 5.8 Lucy diam, ED 2.4 cm ---- ESD, LAX (H) 4.2 cm 2.5 - 4.0 Lucy diam/bsa, ED 0.9 cm/m^2 ---- FS, LAX 28 % 25 - 43 Peak v, S 1.1 m/sec ---- PW, ED (H) 1.2 cm 0.6 - 1.0 VTI, S 21.4 cm ---- IVS/PW, ED 1.01 Mean grad, S 3.0 mm Hg ---- E', lat lucy, TDI (L) 9.2 cm/sec >=10.0 Peak grad, S 5.0 mm Hg - --- E/e', lat lucy, 10 LVOT/AV, VTI ratio 1.01 ---- TDI E', med lucy, TDI 7.6 cm/sec >=7.0 Mitral valve Value R ef E/e', med lucy, 12 Peak E 0.93 m/sec ---- TDI Peak A 0.71 m/sec ---- E', avg, TDI 8.4 cm/sec Decel time 215 ms ---- E/e', avg, TDI 11 <=14 Peak grad, D 3.5 mm Hg - --- Peak E/A ratio 1.3 ---- LVOT Value Ref Peak mihir, S 0.96 m/sec Pulmonic valve Value Ref VTI, S 21.7 cm Peak v, S 0.82 m/sec ---- Mean grad, S 2 mm Hg Peak grad, S 3.0 mm Hg ---- Ventricular septum Value Ref Aortic root Value Ref IVS, ED (H) 1.2 cm 0.6 - 1.0 Root diam 3.5 cm <4.6 Right ventricle Value Ref Ascending aorta Value Ref AW thickness, ED (H) 0.6 cm 0.1 - 0.5 AAo AP diam, S 3.4 cm ---- JOSEY, LAX 3.0 cm JOSEY minor ax, A4C 3.2 cm 1.9 - 3.5 Aortic arch Value Ref mid Arch diam 2.9 cm ---- AW thickness, ED (H) 0.7 cm 0.1 - 0.5 MM Decending aorta Value Ref Maura peak mihir 0.71 m/sec ---- Left atrium Value Ref AP dim, ES 3.90 cm 3.00 - Inferior vena cava Value Ref 4.00 Diam 1.9 cm ---- ML dim, A4C 4.1 cm SI dim, A4C 4.9 cm Vol/bsa, ES, 1-p 19 ml/m^2 12 - 37 A4C Vol/bsa, ES, A/L 24 ml/m^2 16 - 34 Right atrium Value Ref ML dim, ES, A4C 3.7 cm 2.6 - 4.4 SI dim, ES, A4C 4.3 cm 3.4 - 5.3 Estimated RAP 8 mm Hg Legend: (L) and (H) shasta values outside specified reference range. Amended Angel Blanc MD 06/14/2019 13:24
[2019-06-14] MEDS: DOXYcycline CAP(*) 100 MG PO SCH ×2 (15:08→22:02)
[2019-06-14] MEDS ORDERED: Ticagrelor* 90 MG TAB PO SCH (16:00)
--- NOTE | 2019-06-14 16:04 | CONS ---
ADDENDUM NOW INCLUDED ON THIS REPORT CC: Oracio Hurley NP; Dr. Rudy Dwyer * CONSULTATION REPORT: DATE OF CONSULT: 06/14/19 PRIMARY CARE PROVIDER: Oracio Hurley NP. OTHER PROVIDER: Dr. Rudy Dwyer. REQUESTING PHYSICIAN IN CONSULTATION: Dr. Rudy Dwyer. ATTENDING PHYSICIAN: Dr. Patti Cowan (dictated by MADISYN Hills). REASON FOR CONSULT: Co-medical management. HISTORY OF PRESENT ILLNESS/HOSPITAL COURSE: I refer you to Dr. Dwyer's history and physical dictated 06/14/19 for full and complete details, but in short, Mr. Goddard is a 49-year- old male with a past medical history of diabetes, hypertension, hyperlipidemia, tobacco abuse, who presented to the ER today with complaints of chest pain that radiated to his jaw. He was noted to be having STEMI. He had V- tach that transitioned to VFib requiring a shock. He was started on amiodarone drip. He was then brought to cardiac phlebotomist lab assistant for stenting. He is seen post cardiac cath in the ICU. He denies chest pain, headache, nausea, and vomiting, and admits to shortness of breath and lightheadedness. He denies abdominal pain. He has no complaints of pain in the extremities. He denies cough or fever. He is noted to have an abnormality on chest x-ray. Hospitalist team was asked to address this and manage the patient's diabetes. PAST MEDICAL HISTORY: 1. COPD. 2. Hypertension. 3. Diabetes mellitus type 2. 4. Hyperlipidemia. 5. Obesity, BMI 44.2. 6. Psoriasis. PAST SURGICAL HISTORY: Heart stent. CURRENT MEDICATIONS: 1. Acetaminophen 650 mg p.o. q.4 hours p.r.n. 2. Amiodarone 360 mg/200 mL at 16.667 mL per hour, follow protocol. 3. Aspirin 81 mg p.o. daily. 4. Atorvastatin 80 mg p.o. at 1700. 5. Lispro sliding scale. 6. Metoprolol tartrate 12.5 mg p.o. q.8 hours. 7. Nitroglycerin 0.4 mg sublingual q.5 minutes p.r.n. chest pain. 8. Percocet 5/325 one tab p.o. q.6 hours p.r.n. pain. 9. Sodium chloride at 100 cc per hour. 10. Ticagrelor 90 mg p.o. b.i.d. DRUG ALLERGIES: No known drug allergies. FAMILY HISTORY: Mother, PR; father, diabetes mellitus. The patient is unsure about medical history of grandparents. SOCIAL HISTORY: The patient smokes 2 packs per day for approximately 30 years. He rarely drinks alcohol, less than weekly. He does not use any other drugs. 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 He lives with his and 3 of his sons. He has a total of 4 children. In the event that he is unable to make his own medical decisions , he has appointed his , Karla Goddard, to be his surrogate decision maker. REVIEW OF SYSTEMS: A 10-point review of systems has been performed and all the pertinent positives and negatives are in the HPI. All other systems are negative. PHYSICAL EXAM: Vital Signs: Temperature 97.1 temporal, heart rate 71, respiratory rate 23, oxygen saturation 95% on 2 L, blood pressure 122/83. General: Mr. Goddard is a well-developed, well-nourished, obese, middle-aged white male, who is sitting up in a chair. He appears acutely ill. He has no respiratory distress. He is wearing nasal cannula 2 L. He is in no respiratory distress. He is somewhat diaphoretic. HEENT: PERRL. EOMI. Nonicteric sclerae. Hearing grossly intact. Oral mucous membranes are moist. Cardiovascular: Regular rate and rhythm with S1, S2 present. No murmurs, rubs , or gallops. There is no JVD. Distal pulses are palpable. There is no peripheral edema. Respiratory: Symmetrical chest expansion without use of accessory muscles. Lungs clear to auscultation without rhonchi, wheezes, or rubs. Abdomen: Obese. Bowel sounds in all quadrants without tenderness to palpation. Unable to assess hepatosplenomegaly. Neuro: The patient is awake. He is alert and oriented x3, although appears drowsy. Cranial nerves are grossly intact. ASSESSMENT AND PLAN: Mr. Goddard is a 49-year-old male with a past medical history of hypertension, hyperlipidemia, diabetes, obesity, tobacco abuse, who presented to the ER early this morning with left chest discomfort that radiated to the jaw and was found to be having an inferior-posterior ST-elevation myocardial infarction requiring transfer to the phlebotomist lab assistant and stenting. The patient has been admitted to the ICU for: 1. Inferior-posterior ST-elevation myocardial infarction, status post heart cath with stenting. Management per Cardiology. 2. Diabetes mellitus. The patient's home medications include metformin, Tradjenta, Farxiga. He will be placed on lispro sliding scale a.c. and h.s. Hemoglobin A1c has been ordered. We will consider long-acting insulin once this returns. So far, blood sugars have been less than 200. 3. Right upper lobe consolidation noted on chest x-ray. The patient was here on 05/30/19 and was diagnosed with legionella pneumonia. He was treated with Levaquin, which appears to have been filled. He received 7 days of this. At this point, we will continue treatment as it is recommended that he be on 10 days of medication. Considered azithromycin, although the patient is unable to take this or fluoroquinolones while on amiodarone drip. He has been started on doxycycline [address]. [address]10 days. CT has been ordered and reveals right upper lobe consolidation with enlarged right mediastinal lymph nodes. This could be infection or... ADDENDUM: ASSESSMENT AND PLAN: 1. This could represent consolidation from either infection or a mass. Recommend treatment for infection with followup CT in 1 month. 2. Hypertension. Per Cardiology, continue Lopressor. 3. Hyperlipidemia. Continue atorvastatin. 4. Obesity, BMI 44.2, noted. 5. Code status: Full code. TIME SPENT: Approximately 45 minutes was spent on this consultation, greater than half that time was spent with the patient and his family and friends obtaining history, performing physical, and reviewing the plan of care. The case has been discussed with my attending, Dr. Cowan, who is in agreement with the plan of care. DIONI APONTE, MADISYN [id number]/[facility] #: [id number]/[facility] #: [id number] TITUS
[2019-06-14 16:49] LABS: Creatine Kinase 1852 U/L (10-223)
[2019-06-14 16:53] LABS: CKMB ng/mL > 304.0 ng/mL (0.6-6.3); Troponin I 48.19 ng/mL (<0.04)
--- NOTE | 2019-06-14 17:25 | CONS ---
CONSULTATION REPORT: ADDENDUM: ASSESSMENT AND PLAN: 1. This could represent consolidation from either infection or a mass. Recommend treatment for infection with followup CT in 1 month. 2. Hypertension. Per Cardiology, continue Lopressor. 3. Hyperlipidemia. Continue atorvastatin. 4. Obesity, BMI 44.2, noted. 5. Code status: Full code. TIME SPENT: Approximately 45 minutes was spent on this consultation, greater than half that time was spent with the patient and his family and friends obtaining history, performing physical, and reviewing the plan of care. The case has been discussed with my attending, Dr. Cowan, who is in agreement with the plan of care. MADISYN SWANSON [id number]/[facility] #: [id number]
[2019-06-14] MEDS ORDERED: Lisinopril TAB* 5 MG PO ONE (17:30)
[2019-06-14] MEDS: Atorvastatin* 80 MG TAB PO SCH (18:11)
[2019-06-14] MEDS ORDERED: traZODone TAB* 100 MG ONE (21:59)
[2019-06-14] MEDS: Ticagrelor* 90 MG TAB PO SCH (22:02)
[2019-06-14] MEDS: traZODone TAB* 100 MG PO SCH (22:02)
[2019-06-14 22:04] LABS: Creatine Kinase 1624 U/L (10-223)
[2019-06-14 22:10] LABS: CKMB ng/mL 293.8 ng/mL (0.6-6.3)
[2019-06-14 22:16] LABS: Troponin I 55.15 ng/mL (<0.04)
[2019-06-14] MEDS: rOPINIRole TAB* 1 MG PO SCH (22:37)
[2019-06-15 04:27] LABS: Hematocrit 44 % (42-52); Hemoglobin 14.7 g/dL (14.0-18.0); Mean Corpuscular HGB Conc 33 g/dL (31-36); Mean Corpuscular Hemoglobin 28 pg (27-31); Mean Corpuscular Volume 85 fL (80-94); Mean Platelet Volume 7.5 fL (7.4-10.4); Platelet Count 344 10^3/uL (150-450); Red Blood Count 5.22 10^6 /uL (4.18-5.48); Red Cell Distribution Width 15 % (10-15); White Blood Count 11.9 10^3/uL (3.5-10.8)
[2019-06-15 04:44] LABS: ABS Basophils 0.1 10^3/ul (0-0.2); ABS Eosinophils 0.1 10^3/ul (0-0.6); ABS Lymphocytes 1.8 10^3/ul (1.0-4.8); ABS Monocytes 0.7 10^3/ul (0-0.8); ABS Neutrophils 9.3 10^3/ul (1.5-7.7)
[2019-06-15 04:50] LABS: ALT 52 U/L (7-52); AST 143 U/L (13-39); Albumin/Globulin Ratio 1.3 (1-3); Alkaline Phosphatase 55 U/L (34-104); Anion Gap 7 mmol/L (2-11); BUN/Creatinine Ratio 17.4 (8-20); Blood Urea Nitrogen 15 mg/dL (6-24); CO2 Carbon Dioxide 26 mmol/L (22-32); Calcium 9.3 mg/dL (8.6-10.3); Chloride 99 mmol/L (101-111); Cholesterol 129 mg/dL; EGFR African American 114.4 (>60); EGFR Non-African American 94.5 (>60); Globulin 3.1 g/dL (2-4); Glucose 200 mg/dL (70-100); HDL Cholesterol 27.4 mg/dL; LDL Cholesterol 65 mg/dL; Potassium 4.8 mmol/L (3.5-5.0); Sodium 132 mmol/L (135-145); Total Protein 7.1 g/dL (6.4-8.9); Triglycerides 182 mg/dL
[2019-06-15 04:53] LABS: Troponin I 36.79 ng/mL (<0.04)
[2019-06-15 05:16] LABS: Eosinophil % 0.4 %; Lymphocyte % 15.2 %
[2019-06-15] MEDS: Insulin LISPRO* 1 UNITS UNIT SUBCUT SCH ×4 (08:57→20:13)
[2019-06-15] MEDS: Ticagrelor* 90 MG TAB PO SCH ×2 (08:57→20:13)
[2019-06-15] MEDS: DOXYcycline CAP(*) 100 MG PO SCH (08:57)
[2019-06-15] MEDS: Aspirin 81 mg CHEW TAB* 81 MG TAB.CHEW PO SCH (08:57)
[2019-06-15] MEDS: Metoprolol Tartrate TAB* 25 MG PO SCH ×2 (08:58→20:13)
[2019-06-15] MEDS: Lisinopril TAB* 5 MG PO SCH (08:58)
--- NOTE | 2019-06-15 09:13 | PN ---
<Francheska Wagoner - Last Filed: 06/15/19 09:05> Subjective Date of Service: 06/15/19 - s/p VF/Vt arrest requiring defribrilation Interval History: Patient sitting in chair eating breakfast. Offers no complaints at this time. Denies SOB, palpitations, sensation of heart racing, chest pain or dizziness. He had sustained monomorphic VT with variable rates at 0318 he states he was awake but was asymptomatic. He has been up and ambulating to the bathroom with no difficulty. Medications Active Medications: Acetaminophen (Tylenol Tab*) 650 mg PO Q4H PRN PRN Reason: HEADACHE/PAIN Aspirin (Aspirin 81 Mg Chew Tab*) 81 mg PO DAILY [facility] Last Admin: 06/15/19 08:57 Dose: 81 mg Atorvastatin Calcium (Lipitor*) 80 mg PO 1700 [facility] Last Admin: 06/14/19 18:11 Dose: 80 mg Dextrose (D50w Syringe 50 Ml*) 12.5 gm IV PUSH .FOR FS < 60 - SS PRN PRN Reason: FS < 60 Doxycycline Hyclate (Vibramycin Cap(*)) 100 mg PO BID [facility] Last Admin: 06/15/19 08:57 Dose: 100 mg Amiodarone HCl (Nexterone 360 Mg/200 Ml Ivpremix*) 360 mg in 200 mls @ 8.333 mls/hr IV .SEE PROTOCOL [facility]; Protocol Last Admin: 06/14/19 22:00 Dose: 8.333 mls/hr Insulin Human Lispro (Humalog*) 0 units SUBCUT ACHS [facility]; Protocol Last Admin: 06/15/19 08:57 Dose: Not Given Lisinopril (Prinivil Tab*) 5 mg PO DAILY [facility] Last Admin: 06/15/19 08:58 Dose: 5 mg Metoprolol Tartrate (Lopressor Tab*) 25 mg PO BID [facility] Last Admin: 06/15/19 08:58 Dose: 25 mg Nitroglycerin (Nitroglycerin Tab 0.4 Mg*) 0.4 mg SL Q5M PRN PRN Reason: ANGINA Oxycodone/Acetaminophen (Percocet 5/325 Tab*) 1 tab PO Q6H PRN PRN Reason: PAIN Ropinirole HCl (Requip Tab*) 3 mg PO BEDTIME [facility] Last Admin: 06/14/19 22:37 Dose: 3 mg Ticagrelor (Brilinta*) 90 mg PO 0900,2100 [facility] Last Admin: 06/15/19 08:57 Dose: 90 mg Trazodone HCl (Desyrel Tab*) 100 mg PO BEDTIME [facility] Last Admin: 06/14/19 22:02 Dose: 100 mg Objective Vital Signs: Temp Pulse Resp BP Pulse Ox 97.4 F 73 26 114/75 95 06/15/19 08:00 06/15/19 08:00 06/15/19 08:00 06/15/19 08:00 06/15/19 08:00 Oxygen Devices in Use Now: Nasal Cannula Appearance: Sitting in chair, offers no complaints at this time, NAD, A+O x3 Eyes: No Scleral Icterus, PERRLA Ears/Nose/Mouth/Throat: NL Teeth, Lips, Gums, Clear Oropharnyx, Mucous Membranes Moist Neck: NL Appearance and Movements; NL JVP, Trachea Midline Respiratory: Symmetrical Chest Expansion and Respiratory Effort, Clear to Auscultation Cardiovascular: NL Sounds; No Murmurs; No JVD, No Edema, - - right radial access site is intact, no hematoma, non tender to palpation, no oozing, normal sensation. strong palpable radial and ulnar pulse. Extremities: No Edema Skin: No Rash or Ulcers Neurological: Alert and Oriented x 3 Lines/Tubes/Other Access: Clean, Dry and Intact Peripheral IV Laboratory Results: 06/15/19 04:15 06/15/19 04:15 INR (Anticoag Therapy) 1.03 (0.82-1.09) 06/14/19 05:35 APTT 35.8 seconds (26.0-38.0) 06/14/19 05:35 Total Bilirubin 0.70 mg/dL (0.2-1.0) 06/15/19 04:15 AST 143 U/L (13-39) H 06/15/19 04:15 ALT 52 U/L (7-52) 06/15/19 04:15 Alkaline Phosphatase 55 U/L (34-104) 06/15/19 04:15 CK-MB (CK-2) 293.8 ng/mL (0.6-6.3) H 06/14/19 21:23 Total Protein 7.1 g/dL (6.4-8.9) 06/15/19 04:15 Albumin 4.0 g/dL (3.2-5.2) 06/15/19 04:15 Globulin 3.1 g/dL (2-4) 06/15/19 04:15 Albumin/Globulin Ratio 1.3 (1-3) 06/15/19 04:15 Triglycerides 182 mg/dL 06/15/19 04:15 Cholesterol 129 mg/dL 06/15/19 04:15 LDL Cholesterol 65 mg/dL 06/15/19 04:15 HDL Cholesterol 27.4 mg/dL 06/15/19 04:15 06/14/19 06/14/19 06/14/19 05:35 10:55 16:19 Troponin I 0.02 51.73 H* 48.19 H* 06/14/19 06/15/19 21:23 04:15 Troponin I 55.15 H* 36.79 H* Laboratory Results - last 24 hr 06/14/19 06/14/19 06/14/19 05:35 09:12 10:55 WBC RBC Hgb Hct MCV MCH MCHC RDW Plt Count MPV Neut % (Auto) Lymph % (Auto) Burnett % (Auto) Eos % (Auto) Baso % (Auto) Absolute Neuts (auto) Absolute Lymphs (auto) Absolute Monos (auto) Absolute Eos (auto) Absolute Basos (auto) Absolute Nucleated RBC Nucleated RBC % Sodium Potassium Chloride Carbon Dioxide Anion Gap BUN Creatinine Est GFR ( Amer) Est GFR (Non-Af Amer) BUN/Creatinine Ratio Glucose POC Glucose (mg/dL) 208 H Hemoglobin A1c 7.4 H Calcium Total Bilirubin AST ALT Alkaline Phosphatase Total Creatine Kinase 1889 H CK-MB (CK-2) > 304.0 H Troponin I 51.73 H* Total Protein Albumin Globulin Albumin/Globulin Ratio Triglycerides Cholesterol LDL Cholesterol HDL Cholesterol 06/14/19 06/14/19 06/14/19 12:10 16:19 16:19 WBC RBC Hgb Hct MCV MCH MCHC RDW Plt Count MPV Neut % (Auto) Lymph % (Auto) Burnett % (Auto) Eos % (Auto) Baso % (Auto) Absolute Neuts (auto) Absolute Lymphs (auto) Absolute Monos (auto) Absolute Eos (auto) Absolute Basos (auto) Absolute Nucleated RBC Nucleated RBC % Sodium Potassium Chloride Carbon Dioxide Anion Gap BUN Creatinine Est GFR ( Amer) Est GFR (Non-Af Amer) BUN/Creatinine Ratio Glucose POC Glucose (mg/dL) 161 H 258 H Hemoglobin A1c Calcium Total Bilirubin AST ALT Alkaline Phosphatase Total Creatine Kinase 1852 H CK-MB (CK-2) > 304.0 H Troponin I 48.19 H* Total Protein Albumin Globulin Albumin/Globulin Ratio Triglycerides Cholesterol LDL Cholesterol HDL Cholesterol 06/14/19 06/14/19 06/15/19 21:22 21:23 04:15 WBC 11.9 H RBC 5.22 Hgb 14.7 Hct 44 MCV 85 MCH 28 MCHC 33 RDW 15 Plt Count 344 MPV 7.5 Neut % (Auto) 78.1 Lymph % (Auto) 15.2 Burnett % (Auto) 5.8 Eos % (Auto) 0.4 Baso % (Auto) 0.5 Absolute Neuts (auto) 9.3 H Absolute Lymphs (auto) 1.8 Absolute Monos (auto) 0.7 Absolute Eos (auto) 0.1 Absolute Basos (auto) 0.1 Absolute Nucleated RBC 0.0 Nucleated RBC % 0.0 Sodium Potassium Chloride Carbon Dioxide Anion Gap BUN Creatinine Est GFR ( Amer) Est GFR (Non-Af Amer) BUN/Creatinine Ratio Glucose POC Glucose (mg/dL) 124 H Hemoglobin A1c Calcium Total Bilirubin AST ALT Alkaline Phosphatase Total Creatine Kinase 1624 H CK-MB (CK-2) 293.8 H Troponin I 55.15 H* Total Protein Albumin Globulin Albumin/Globulin Ratio Triglycerides Cholesterol LDL Cholesterol HDL Cholesterol 06/15/19 06/15/19 04:15 08:43 WBC RBC Hgb Hct MCV MCH MCHC RDW Plt Count MPV Neut % (Auto) Lymph % (Auto) Burnett % (Auto) Eos % (Auto) Baso % (Auto) Absolute Neuts (auto) Absolute Lymphs (auto) Absolute Monos (auto) Absolute Eos (auto) Absolute Basos (auto) Absolute Nucleated RBC Nucleated RBC % Sodium 132 L Potassium 4.8 Chloride 99 L Carbon Dioxide 26 Anion Gap 7 BUN 15 Creatinine 0.86 Est GFR ( Amer) 114.4 Est GFR (Non-Af Amer) 94.5 BUN/Creatinine Ratio 17.4 Glucose 200 H POC Glucose (mg/dL) 84 Hemoglobin A1c Calcium 9.3 Total Bilirubin 0.70 AST 143 H ALT 52 Alkaline Phosphatase 55 Total Creatine Kinase CK-MB (CK-2) Troponin I 36.79 H* Total Protein 7.1 Albumin 4.0 Globulin 3.1 Albumin/Globulin Ratio 1.3 Triglycerides 182 Cholesterol 129 LDL Cholesterol 65 HDL Cholesterol 27.4 Diagnostic Imaging: *[facility]* [place] [address] Fax #: [phone] Transthoracic Echocardiogram (Report amended [id number]) Patient: Neto Goddard : 1970 Study Date: 06/14/2019 Age: 49 Gender: M HR: 66 bpm Height: 71 in /180.3 cm BSA: 2.58 m^2 Weight: 319.3 lb /145.2 kg BMI: 44.6 kg/m^2 *[address] Administrator: * Jordana Reich RDCS RN *Referring Physician: * Rudy Dwyer MD *Reading Physician: * Angel Blanc MD Indications: Myocardial Infarction (new). History: Risk factors: Hypertension. Diabetes mellitus. Obese. Labs, prior tests, procedures, and surgery: Catheterization with coronary intervention. Performed during the current admission. Conclusions Summary: - Left ventricle: The cavity size is at the upper limits of normal. Wall thickness is mildly increased. Systolic function is mildly reduced. The estimated ejection fraction is 50-55%. Doppler parameters are consistent with abnormal left ventricular relaxation (grade 1 diastolic dysfunction). - Right ventricle: The cavity size is normal. Wall thickness is mildly increased. - Mitral valve: There is trace to mild regurgitation. This report is only to be considered final once signed by the Provider(s) as displayed in the "<Electronically Signed by >" field (s). Absence of a signature indicates the report is in a draft status and still needs to be finalized. In the event this document was created by someone other than the signing Provider, the individual initiating the document will be listed in the "Entered by:" or "Dictated by:" miller. EKG Data: EKG 06/15/2019; Sinus rhythm 71 with inferior Q waves and inferior ST elevation comparable to prior ECG Telemetry reviewed sinus rhythm rate 70's with PVCs. Patient had sustained monomorphic VT at 0318 with variable rates from 86-130 BPM he was asymptomatic. Assessment/Plan s/p Inferior CT with VT/VF arrest requiring successful defibrillation. He is s/ p LHC via right radial access 06/14/2019. He underwent extensive intervention to RCA with residual OM lesion. Troponin peaked on 06/14/2019 at 51. LVEF 50-55% with inferior region WMA. On ASA 81/mg, Brillinta 90mg BID, Lopressor 25mg/BID, Lipitor 80 QHS. No recurrent symptoms. Access site is intact. #2 Sustained monomorphic VT with variable rates; re occurred on IV Amio gtt at [address] Dwyer spoke with EP Dr. Chepe Lock who recommends another 24 hours of close observation on current dose of Amio. It is likely ischemic given CT was < 48 hours ago. If he has recurrent VTVF will need to load with Amio 6-10 grams. Will update TFTs, mag. Keep Mag>2, K+>4. Will consider lifevest depending on course. Strips from VFVT arrest at presentation scanned into patient's chart. #3 h/o Legionella PNA; patient reports successfully completing outpatient course of PO Levaquin. Hospitalist consulted ID to determine clinical significance of abnormal CT and outpatient eval. #4 h/o DM; hospitalist managing. Consider SGLT2 inhibitor given mild LV dysfunction. #4 h/o HLD on high intensity statin therapy. Goal LDL < 70. #5 disposition pending course will continue to monitor in ICU given breakthrough VT on amio Gtt. Patient full code. Attending: Rudy Dwyer <Rudy Dwyer - Last Filed: 06/15/19 09:56> Medications Active Medications: Acetaminophen (Tylenol Tab*) 650 mg PO Q4H PRN PRN Reason: HEADACHE/PAIN Aspirin (Aspirin 81 Mg Chew Tab*) 81 mg PO DAILY [facility] Last Admin: 06/15/19 08:57 Dose: 81 mg Atorvastatin Calcium (Lipitor*) 80 mg PO 1700 [facility] Last Admin: 06/14/19 18:11 Dose: 80 mg Dextrose (D50w Syringe 50 Ml*) 12.5 gm IV PUSH .FOR FS < 60 - SS PRN PRN Reason: FS < 60 Doxycycline Hyclate (Vibramycin Cap(*)) 100 mg PO BID [facility] Last Admin: 06/15/19 08:57 Dose: 100 mg Amiodarone HCl (Nexterone 360 Mg/200 Ml Ivpremix*) 360 mg in 200 mls @ 8.333 mls/hr IV .SEE PROTOCOL [facility]; Protocol Last Admin: 06/14/19 22:00 Dose: 8.333 mls/hr Insulin Human Lispro (Humalog*) 0 units SUBCUT ACHS [facility]; Protocol Last Admin: 06/15/19 08:57 Dose: Not Given Lisinopril (Prinivil Tab*) 5 mg PO DAILY [facility] Last Admin: 06/15/19 08:58 Dose: 5 mg Metoprolol Tartrate (Lopressor Tab*) 25 mg PO BID [facility] Last Admin: 06/15/19 08:58 Dose: 25 mg Nitroglycerin (Nitroglycerin Tab 0.4 Mg*) 0.4 mg SL Q5M PRN PRN Reason: ANGINA Oxycodone/Acetaminophen (Percocet 5/325 Tab*) 1 tab PO Q6H PRN PRN Reason: PAIN Ropinirole HCl (Requip Tab*) 3 mg PO BEDTIME [facility] Last Admin: 06/14/19 22:37 Dose: 3 mg Ticagrelor (Brilinta*) 90 mg PO 0900,2100 [facility] Last Admin: 06/15/19 08:57 Dose: 90 mg Trazodone HCl (Desyrel Tab*) 100 mg PO BEDTIME [facility] Last Admin: 06/14/19 22:02 Dose: 100 mg Objective Vital Signs: Temp Pulse Resp BP Pulse Ox 97.4 F 84 17 106/69 95 06/15/19 08:00 06/15/19 09:00 06/15/19 09:00 06/15/19 09:00 06/15/19 09:00 Laboratory Results: 06/15/19 04:15 06/15/19 04:15 INR (Anticoag Therapy) 1.03 (0.82-1.09) 06/14/19 05:35 APTT 35.8 seconds (26.0-38.0) 06/14/19 05:35 Total Bilirubin 0.70 mg/dL (0.2-1.0) 06/15/19 04:15 AST 143 U/L (13-39) H 06/15/19 04:15 ALT 52 U/L (7-52) 06/15/19 04:15 Alkaline Phosphatase 55 U/L (34-104) 06/15/19 04:15 CK-MB (CK-2) 293.8 ng/mL (0.6-6.3) H 06/14/19 21:23 Total Protein 7.1 g/dL (6.4-8.9) 06/15/19 04:15 Albumin 4.0 g/dL (3.2-5.2) 06/15/19 04:15 Globulin 3.1 g/dL (2-4) 06/15/19 04:15 Albumin/Globulin Ratio 1.3 (1-3) 06/15/19 04:15 Triglycerides 182 mg/dL 06/15/19 04:15 Cholesterol 129 mg/dL 06/15/19 04:15 LDL Cholesterol 65 mg/dL 06/15/19 04:15 HDL Cholesterol 27.4 mg/dL 06/15/19 04:15 06/14/19 06/14/19 06/14/19 05:35 10:55 16:19 Troponin I 0.02 51.73 H* 48.19 H* 06/14/19 06/15/19 21:23 04:15 Troponin I 55.15 H* 36.79 H* Assessment/Plan Points of Discussion: I have seen and examined the patient and agree with the above assessment and plan. Radial artery site well healed with good antegrade flow in the radial artery. Will consider weaning off amiodarone IV tomorrow if ISAMAR stabilizes.
--- NOTE | 2019-06-15 09:18 | PN ---
Subjective Date of Service: 06/15/19 Interval History: Patient reports that he finished his Levaquin last 06/08/19. Report that cough has improved since completing Levaquin. Denies any fever or chills. Denies chest or shortness of breath. Denies lightheadedness or dizziness. Patient with v-tach arrhythmia overnight Spoke to ID who recommended no further antibiotics for pneumonia. Family History: Unchanged from Admission Social History: Unchanged from Admission Past Medical History: Unchanged from Admission Objective Active Medications: Acetaminophen (Tylenol Tab*) 650 mg PO Q4H PRN PRN Reason: HEADACHE/PAIN Aspirin (Aspirin 81 Mg Chew Tab*) 81 mg PO DAILY [facility] Last Admin: 06/15/19 08:57 Dose: 81 mg Atorvastatin Calcium (Lipitor*) 80 mg PO 1700 [facility] Last Admin: 06/14/19 18:11 Dose: 80 mg Dextrose (D50w Syringe 50 Ml*) 12.5 gm IV PUSH .FOR FS < 60 - SS PRN PRN Reason: FS < 60 Doxycycline Hyclate (Vibramycin Cap(*)) 100 mg PO BID [facility] Last Admin: 06/15/19 08:57 Dose: 100 mg Amiodarone HCl (Nexterone 360 Mg/200 Ml Ivpremix*) 360 mg in 200 mls @ 8.333 mls/hr IV .SEE PROTOCOL [facility]; Protocol Last Admin: 06/14/19 22:00 Dose: 8.333 mls/hr Insulin Human Lispro (Humalog*) 0 units SUBCUT ACHS [facility]; Protocol Last Admin: 06/15/19 08:57 Dose: Not Given Lisinopril (Prinivil Tab*) 5 mg PO DAILY [facility] Last Admin: 06/15/19 08:58 Dose: 5 mg Metoprolol Tartrate (Lopressor Tab*) 25 mg PO BID [facility] Last Admin: 06/15/19 08:58 Dose: 25 mg Nitroglycerin (Nitroglycerin Tab 0.4 Mg*) 0.4 mg SL Q5M PRN PRN Reason: ANGINA Oxycodone/Acetaminophen (Percocet 5/325 Tab*) 1 tab PO Q6H PRN PRN Reason: PAIN Ropinirole HCl (Requip Tab*) 3 mg PO BEDTIME [facility] Last Admin: 06/14/19 22:37 Dose: 3 mg Ticagrelor (Brilinta*) 90 mg PO 0900,2100 [facility] Last Admin: 06/15/19 08:57 Dose: 90 mg Trazodone HCl (Desyrel Tab*) 100 mg PO BEDTIME [facility] Last Admin: 06/14/19 22:02 Dose: 100 mg Vital Signs - 8 hr 06/15/19 06/15/19 06/15/19 02:00 02:01 03:00 Temperature Pulse Rate 66 63 Respiratory 26 24 22 Rate Blood Pressure 104/63 (mmHg) O2 Sat by Pulse 94 96 Oximetry 06/15/19 06/15/19 06/15/19 03:01 03:32 04:00 Temperature 98.1 F Pulse Rate 81 70 Respiratory 12 Rate Blood Pressure 119/84 106/64 (mmHg) O2 Sat by Pulse 95 96 Oximetry 06/15/19 06/15/19 06/15/19 05:00 06:00 07:00 Temperature Pulse Rate 72 68 75 Respiratory 17 28 25 Rate Blood Pressure 111/72 119/77 119/68 (mmHg) O2 Sat by Pulse 95 95 95 Oximetry 06/15/19 08:00 Temperature 97.4 F Pulse Rate 73 Respiratory 26 Rate Blood Pressure 114/75 (mmHg) O2 Sat by Pulse 95 Oximetry Oxygen Devices in Use Now: Nasal Cannula Appearance: Appears comfortable sitting in chair Eyes: No Scleral Icterus Ears/Nose/Mouth/Throat: Clear Oropharnyx, Mucous Membranes Moist Neck: NL Appearance and Movements; NL JVP Respiratory: Symmetrical Chest Expansion and Respiratory Effort Cardiovascular: NL Sounds; No Murmurs; No JVD, No Edema Abdominal: NL Sounds; No Tenderness; No Distention Extremities: No Edema, No Clubbing, Cyanosis Skin: No Rash or Ulcers Neurological: Alert and Oriented x 3 Nutrition: Taking PO's Result Diagrams: 06/15/19 04:15 06/15/19 04:15 Microbiology and Other Data: Microbiology 06/14/19 10:55 Nasal Screen MRSA (PCR) - Final Nasal Mrsa Not Detected Assess/Plan/Problems-Billing Assessment: Mr. Goddard is a 49 y.o male with pmhx of htn, type 2 DM, hld who has a recent hx of legionella pneumonia who was treated with levaquin for 7 days which finished 06/08/19. He presented chest pain in inferior- posterior TX requiring emergency cardiac cath. - Patient Problems (1) ST elevation (STEMI) myocardial infarction Current Visit: Yes Status: Acute Code(s): I21.3 - ST ELEVATION (STEMI) MYOCARDIAL INFARCTION OF [facility] SITE SNOMED Code(s): 87809159 Comment: managment per interventional cardiology continue ASA, lipitor, metoprolol and brilinta (2) S/P cardiac catheterization Current Visit: Yes Status: Acute Code(s): Z98.890 - OTHER SPECIFIED POSTPROCEDURAL STATES SNOMED Code(s): 13390276014434 Comment: management per interventional cardiology (3) COPD exacerbation Current Visit: No Status: Acute Code(s): J44.1 - CHRONIC OBSTRUCTIVE PULMONARY DISEASE W (ACUTE) EXACERBATION SNOMED Code(s): 681808628 Comment: Ct- shows consolidation in the RUL with mildly enlarged lymph nodes - patient had recent leigonella pneumonia and was treated with levaquin for 7 days last dose was 06/08/19- completed 7 days couse - ID was consulted and recommended no further antibiotics, repeat chest x ray in 1 month - will monitor for sign of further infection and stop doxycycline (4) HTN (hypertension) Current Visit: No Status: Chronic Code(s): I10 - ESSENTIAL (PRIMARY) HYPERTENSION SNOMED Code(s): 47564187 Comment: Restart home medications. (5) Type 2 diabetes mellitus Current Visit: No Status: Chronic Comment: Hold metformin and dapagliflozin fingersticks ac -lispro sliding scale (6) DVT prophylaxis Current Visit: No Status: Acute Code(s): Z29.9 - ENCOUNTER FOR PROPHYLACTIC MEASURES, UNSPECIFIED SNOMED Code(s): 982423357 Comment: SCDs Status and Disposition: inpatient ICU
[2019-06-15 09:21] LABS: Magnesium 2.4 mg/dL (1.9-2.7)
--- NOTE | 2019-06-15 10:39 | CATH ---
CC: Oracio Hurley NP * CARDIAC CATHETERIZATION INTERVENTIONAL REPORT: DATE OF PROCEDURE: 06/14/19 INDICATION FOR THE PROCEDURE: The patient presents with an acute ST segment elevation inferior posterior wall myocardial infarction. PROCEDURES: The procedure was coronary arteriography, left heart catheterization, balloon angioplasty and placement of a 4.0 x 28 mm long Synergy drug-eluting stent in the distal right coronary artery, primary stenting of the proximal portion of the left posterior left ventricular branch with placement of a 2.0 x 12 mm long Synergy drug-eluting stent, primary stenting of the mid right coronary artery with placement of a 4.0 x 16 mm long Synergy drug-eluting stent post dilated to 4.2 mm. Balloon angioplasty of the first posterior left ventricular branch. Left heart catheterization. CONSENT: The patient was interviewed and examined in the emergency room where the procedure was explained. He understood and wished to proceed. LABORATORY RESULTS: At the time of the actual catheterization, laboratory results were pending. During the case, laboratory result came back - hemoglobin and hematocrit 15.8 and 45, BUN and creatinine 17 and 0.95, sodium 132, potassium 4.4, chloride 100, bicarb 23. APPROACH UTILIZED: The right radial artery was assessed by ultrasound and found to be acceptable and as such this was the approach utilized. EQUIPMENTS UTILIZED DURING THE CASE: 1. The right radial artery sheath was a 6-[place] glide sheath. 2. The diagnostic catheter was a TIG4 5-[place] catheter and a SL4 curved 5- [place] catheter. 3. The interventional guide catheter was a Heartrail III 6-[place] IR 1.0 catheter. 4. The interventional wires utilized included three 190 cm length All Star wires. 5. The balloon angioplasty catheters utilized included a 3.5 x 15 mm long Emerge balloon, a 2.5 x 15 mm long Emerge balloon, a [place] Emerge 4.0 x 12 mm long catheter as well as a 4.0 x 20 mm long [place] Emerge balloon catheter. 6. Stents utilized was 4.0 x 28 mm long Synergy drug-eluting stent, a 4.0 x 16 mm long Synergy drug-eluting stent, and a 2.0 x 12 mm long Resolute Pako drug- eluting stent. 7. The left heart catheterization was a 5-[place] short radial TIG catheter. MEDICATIONS GIVEN DURING THE PROCEDURE: The patient already came in from the emergency room on an amiodarone drip as well as an IV nitroglycerin drip. He had received heparin bolus and aspirin therapy. He had received intravenous Lopressor as well. Additional medications given in the lab included radial artery cocktail of 300 mcg of nitroglycerin and 3 mg of verapamil. He had 1% lidocaine locally and an Angiomax bolus and an Angiomax drip was given for a nontherapeutic ACT. DESCRIPTION OF PROCEDURE: The patient was brought to the cardiovascular laboratory where a formal time-out was performed. He was prepped and draped in a sterile fashion and under ultrasound guidance, the right radial artery was cannulated and sheath was placed. Diagnostic coronary arteriography was performed. Following this, decision was made to intervene into the totally occluded right coronary artery. Guiding views were obtained and ACT was checked and found to be subtherapeutic and as such an Angiomax bolus and an Angiomax drip was started. Following this, an All Start 190 cm length wire was inserted into the right coronary artery across the total occlusion. Following this, it was noted that the total obstruction was near the takeoff of the posterior descending artery and as such a separate All Star wire was placed into the posterior descending artery. Balloon angioplasty was performed utilizing the 3.5 x 15 mm long Emerge balloon. Following this, further perfusion was seen down the right coronary artery identifying multiple significant obstructed areas. A total occlusion of the first posterior left ventricular branch was identified and the stent was placed in the distal right coronary artery followed by placement of a third wire into the first posterior left ventricular branch. A balloon angioplasty was performed to that area. Because of a significant mismatch in that vessel, no stent could be placed in there. After that, high pressure balloon inflations were performed to the stent in the distal right coronary artery. Following this, a distal lesion was seen within the last posterior left ventricular branch in its proximal portion and primary stenting was performed utilizing the 2.0 x 12 mm long [place] drug- eluting stent. Following this, primary stenting was performed to the mid right coronary artery followed by high pressure balloon inflations. Of note, during intervention into the mid segment, a wire was placed into the acute marginal branch to protect it. After stent placement, it was still patent. Additional injections were made into the left coronary artery utilizing the SL4 curved catheter to get better imaging. Following that, the left heart catheterization was performed utilizing the Pigtail catheter. At the end of the case, the catheter sheaths were removed and hemostasis was obtained with a Vasc Band. The total contrast used was 240 cc of Omnipaque dye. The radiation exposure included 20.1 minutes of fluoro time. The air kerma radiation was 3682 milligray. The DAP radiation was 22,834 microgray/m2. When the radial artery sheath was removed, the reverse Barbeau was a B. RESULTS: LEFT HEART CATHETERIZATION: - Central aortic pressure recorded at 123/82 with a mean of 103. Left ventricular pressure 122 in ventricular and diastolic pressure of 28. CORONARY ARTERIOGRAPHY: A. Left coronary artery. 1. Left main - widely patent. 2. Left anterior descending artery. The proximal portion of left anterior descending artery had a 35% narrowing seen with calcium. The midportion of left anterior descending artery had a 40% narrowing noted. Of note, there appeared to be diffuse noncritical disease seen throughout the length of the vessel. The first diagonal branch was a small caliber vessel followed by a second diagonal branch that appeared to have a narrowing as much as 75% to 80%. It appeared to also be a somewhat small caliber vessel which appeared proximally to be at best as 1.7 to 2 mm. 3. Circumflex artery - a nondominant vessel supplying a high thin first obtuse marginal branch. The moderate size mid obtuse marginal branch had a proximal narrowing of 65% to 70% within it. The continuation to the circumflex supplied 2 low-lying posterior left ventricular branches. B. Right coronary artery - initially totally occluded in its distal portion after turning on into the inferior surface of the heart with an area of 65% to 70% stenosis seen in its midportion. There was mild luminal irregularity seen in the proximal and midportion prior to the 65% to 70% lesion. On opening the right coronary artery, there was evidence of severe, diffuse disease seen throughout the distal right coronary artery including a very small caliber PDA, mid to distal portion of the first posterior left ventricular branch and diffusely diseased last posterior left ventricular branch. Diffuse disease within the last posterior left ventricular branch was noted with extremely small caliber. INTERVENTION INTO RIGHT CORONARY ARTERY: A. Distal right coronary artery at PDA - successful reconstitution of totally occluded distal right coronary artery and the posterior descending artery with balloon angioplasty and placement of a 4.0 x 20 mm long Synergy drug -eluting stent with residual stenosis of less than 10%, BAYLEE III flow. No dissection seen. B. Intervention into proximal portion of the left posterior left ventricular branch - successful reduction of significant 80% to 85% lesion with primary stenting utilizing a 2.0 x 12 mm long Pako Resolute drug-eluting stent with residual stenosis of 0% BAYLEE III flow. C. Intervention into midportion of right coronary artery - successful reduction of 65% to 70% stenosis seen with primary stenting utilizing a 4.0 x 16 mm long Synergy drug-eluting stent post dilated to 4.2 mm with BAYLEE III flow. No dissection seen and less than 5% residual stenosis noted. D. Balloon angioplasty of totally occluded 1st posterior left ventrcular branch- successful reconstitution of the vessel revealing a severely diffusely diseased mid to distal vessel extremely small in caliber. No option for stenting given the small caliber vessel. OVERALL ASSESSMENT: Successful interruption of totally occluded right coronary artery and acute ST-segment elevation myocardial infarction with diffuse diabetic looking distal disease seen throughout the right coronary artery as described above. Aggressive risk factor management will have to be pursued including dual antiplatelet therapy for a minimum of 1 year, possibly longer. Aggressive statin therapy with 80 mg of atorvastatin will be pursued. Strict diabetic control will be pursued through hospitalist assistance. 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 Smoking cessation is paramount to his ongoing wellbeing. In general, it has already been discussed and will be discussed again at length with the patient. [id number]/[facility] #: [id number] MTDD
[2019-06-15 10:55] LABS: TSH (Thyroid Stimulating Horm) 1.1 mcIU/mL (0.34-5.60)
[2019-06-15 10:56] LABS: Free T3 3.6 pg/mL (2.5-3.9)
[2019-06-15 10:57] LABS: Free T4 1.01 ng/dL (0.61-1.12)
[2019-06-15] MEDS: Nicotine PATCH 21 MG/24 HR* PATCH TRANSDERM SCH (13:21)
[2019-06-15] MEDS ORDERED: LORazepam TAB(*) 0.5 MG PO ONE (16:20)
[2019-06-15] MEDS: Atorvastatin* 80 MG TAB PO SCH (16:55)
[2019-06-15] MEDS: Amiodarone 360 MG IVPREMIX* 360 MG/200 ML BAG IV SCH (16:55)
[2019-06-15] MEDS: Enoxaparin(*) 40 MG/0.4 ML SYR SUBCUT SCH (17:55)
--- NOTE | 2019-06-15 19:16 | CONS ---
CONSULTATION REPORT: DATE OF CONSULT: 06/15/19 PRIMARY CARE PROVIDER: Oracio Hurley NP PROVIDER REQUESTING CONSULTATION: Saumya Hawk NP CONSULTING SERVICE: Infectious Disease. PROVIDER: Abdullahi Shah NP ATTENDING PROVIDER: Dr. Joe.* (ABDULLAHI SHAH NP) REASON FOR CONSULT: Abnormal chest x-ray and chest CT following recent diagnosis with legionella pneumonia. IMPRESSION: 1. Abnormal chest x-ray and CT scan in the setting of a recent legionella pneumonia. The patient was recently diagnosed with legionella pneumonia and he was placed on a 7-day course of Levaquin, which he completed approximately 1 week ago. He denies any fevers or chills. He states his breathing is at baseline. He reports a cough, but this has improved from prior to and while being on antibiotics. He reports white mucus production. The differential diagnosis includes pneumonia, mass, or imaging lagging resolution of pneumonia. Clinically, the patient does not have pneumonia at this time. He does not have increased oxygen demand, no adventitious lung sounds, or fever. He is noted to have mild leukocytosis. 2. Leukocytosis. I suspect this represents a leukemoid reaction in the setting of cardiac catheterization he underwent yesterday or resolving leukocytosis in the setting of a recent pneumonia. His white count has improved since his ER visit on 06/01/19, at which time his white count was 14.5. 3. Diabetes mellitus type 2. 4. Morbid obesity with BMI of approximately 44. 5. ST-elevated myocardial infarction. Status post PCI with multiple stent placement yesterday by Dr. Rudy Dwyer. RECOMMENDATIONS: Recommend discontinuing doxycycline. He does not clinically has pneumonia at this time. I suspect the imaging is lagging showing resolution of his recent pneumonia. Additionally, I do not recommend checking another legionella as this will be positive for several months after being treated for legionella pneumonia. I do, however, recommend getting a repeat chest x-ray in approximately 1 month to eval for resolution of this area seen in his right upper lobe. If area continues to be present, he will need to have further workup for possible malignancy such as biopsy. HISTORY OF PRESENT ILLNESS: Mr. Goddard is a 49-year-old male with past medical history significant for diabetes mellitus type 2, hypertension, hyperlipidemia, who initially presented to the emergency room on 05/31/19 with complaints of headache and fever after being seen at urgent care. He also reported a cough and a fever max of 101 at home. At that point, he denied shortness of breath, chest pain. Reported a cough with productive sputum that was clear to yellowish in color. He had a chest x-ray showing a right upper lobe airspace opacification. He was seen in evaluation by the hospitalist service with plans for an admission, but soon after being evaluated by the hospitalist, the patient signed himself out against medical advice. After leaving the emergency room he notified that he had legionella pneumonia and a 7 day supply of Levaquin was sent to the pharmacy and he was instructed by the ER to return if his symptoms worsened. 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 Denying any fevers, chills, nausea, vomiting, diarrhea. Reports that his breathing is fine and that his cough has continued to improve since completing the course of Levaquin on 06/08/19. He states that he was then feeling in his usual state of health when he awoke at 3:30 in the morning on 06/14/19 with chest discomfort radiating into his jaw. He came to the emergency room, had an EKG showing an acute STEMI. He was emergently taken to the cardiac slab worker where he underwent balloon angioplasty and placement of a drug-eluting stent in the distal right coronary artery, primary stenting of the proximal portion of the left posterior left ventricular branch, primary stenting of the mid right coronary artery, balloon angioplasty of the first posterior left ventricular branch. The patient continues to state that he is feeling okay. He has been afebrile. Mild leukocytosis noted today. He reports his breathing is fine and at baseline. Reports an occasional cough with white sputum production. He denies any nausea, vomiting, diarrhea, abdominal pain, urinary symptoms, rash, recent travel. PAST MEDICAL HISTORY: 1. COPD. 2. Hypertension. 3. Diabetes mellitus type 2. 4. Hyperlipidemia. 5. Morbid obesity, BMI 44.21. 6. Psoriasis. PAST SURGICAL HISTORY: Status post PCI with drug-eluting stent placement. MEDICATIONS: Home medications: 1. Trazodone 100 mg by mouth at bedtime. 2. Metformin 500 mg by mouth twice daily. 3. Spiriva Respimat 4 g by mouth daily. 4. Requip 3 mg by mouth daily at bedtime. 5. Lisinopril 10 mg by mouth daily. 6. Farxiga 5 mg by mouth daily. Hospital medications: 1. Acetaminophen 650 mg by mouth every 4 hours as needed for fever or pain. 2. Amiodarone IV per protocol. 3. Aspirin 81 mg by mouth daily. 4. Atorvastatin 80 mg by mouth daily. 5. Dextrose 12.5 g IV push for glucose less than 60. 6. Lovenox 40 mg subcutaneous daily. 7. Humalog insulin sliding scale subcutaneous with meals and at bedtime. 8. Lisinopril 5 mg by mouth daily. 9. Metoprolol tartrate 25 mg by mouth twice daily. 10. Nicotine patch 21 mg 1 patch transdermal daily. 11. Nitroglycerin 0.4 mg sublingual every 5 minutes as needed for chest pain. 12. Percocet 5/325 one tablet by mouth every 6 hours as needed for pain. 13. Requip 3 mg by mouth at bedtime. 14. Brilinta 90 mg by mouth twice daily. 15. Trazodone 100 mg by mouth daily. ALLERGIES: No known drug allergies. FAMILY HISTORY: Denies any family history of recurrent or resistant infections. Mother passed at age 47 from an [place]. Father with a history of diabetes. Denies family history of cancer. SOCIAL HISTORY: He is a current smoker, smoking 1 to 2 packs daily for approximately 30 years. He rarely drinks alcohol. Denies recreational drug use. REVIEW OF SYSTEMS: I performed a 10-point review of systems. All the pertinent positives and negatives are mentioned in the history of present illness. The remaining review of systems are negative. PHYSICAL EXAM: Vital Signs: Temperature 97.9, heart rate 74, respiratory rate 19, O2 sat 96% on room air, blood pressure 112/63. General Appearance: No acute distress. Head: Normocephalic, atraumatic. EENT: Pupils are equal and reactive to light. Extraocular movements intact. Moist mucous membranes. Neurological: Alert and oriented x4. Cranial nerves II through XII are grossly intact. Cardiovascular: Regular rate and rhythm. S1, S2 present. No murmurs, rubs, or gallops heard. Respiratory: No accessory muscle use. The lungs are clear to auscultation bilaterally. Abdomen: Large, soft, nontender. There are bowel sounds present x4. Extremities: No lower extremity edema. Musculoskeletal: No clubbing or cyanosis noted. Exhibits good strength in all extremities. Psychological: Calm and cooperative. Skin: No rashes or abnormalities seen. DIAGNOSTIC STUDIES/LAB DATA: Sodium 132, potassium 4.8, chloride 99, CO2 of 26 , BUN 15, creatinine 0.86, glucose 200. White blood cell count 11.9, hemoglobin 14.7, hematocrit 44, platelet count 344. Please see impression and recommendations outlined above. Thank you for asking us to see Mr. Goddard in consultation. Recommendations have been discussed with Saumya Hawk NP. The case has been reviewed with my attending, Dr. [place] Joe, who agrees with the plan of care. Reviewed by MAYE SNYDER 06/18/19 1243 [id number]/[facility] #: [id number]
[2019-06-15] MEDS: traZODone TAB* 100 MG PO SCH (20:12)
[2019-06-15] MEDS: rOPINIRole TAB* 1 MG PO SCH (20:13)
[2019-06-15] MEDS: Nicotine Patch Removal NOTE FOLLOW UP SCH (20:14)
[2019-06-16] MEDS: Insulin LISPRO* 1 UNITS UNIT SUBCUT SCH (07:52)
[2019-06-16] MEDS: Nicotine PATCH 21 MG/24 HR* PATCH TRANSDERM SCH (08:46)
[2019-06-16] MEDS: Lisinopril TAB* 5 MG PO SCH (08:46)
[2019-06-16] MEDS: Ticagrelor* 90 MG TAB PO SCH ×2 (08:46→21:43)
[2019-06-16] MEDS: Metoprolol Succinate XL TAB* 50 MG PO SCH (08:46)
[2019-06-16] MEDS: Aspirin 81 mg CHEW TAB* 81 MG TAB.CHEW PO SCH (08:46)
--- NOTE | 2019-06-16 08:58 | PN ---
<Francheska Wagoner - Last Filed: 06/16/19 08:48> Subjective Date of Service: 06/16/19 - s/p cardiac arrest requiring successful defibrillation s/p RCA intervention for KS Interval History: Patient sitting in chair eating breakfast. Offers no complaints at this time. Denies SOB, palpitations, sensation of heart racing, chest pain or dizziness. He had sustained monomorphic VT with variable rates at 0318 on 06/15/2019 however , he not had recurrent VT on telemetry. He states he ambulated the halls yesterday with no difficulty. Offers no complaints at this time. Medications Active Medications: Acetaminophen (Tylenol Tab*) 650 mg PO Q4H PRN PRN Reason: HEADACHE/PAIN Aspirin (Aspirin 81 Mg Chew Tab*) 81 mg PO DAILY [facility] Last Admin: 06/15/19 08:57 Dose: 81 mg Atorvastatin Calcium (Lipitor*) 80 mg PO 1700 [facility] Last Admin: 06/15/19 16:55 Dose: 80 mg Dextrose (D50w Syringe 50 Ml*) 12.5 gm IV PUSH .FOR FS < 60 - SS PRN PRN Reason: FS < 60 Enoxaparin Sodium (Lovenox(*)) 40 mg SUBCUT Q24H [facility] Last Admin: 06/15/19 17:55 Dose: 40 mg Insulin Human Lispro (Humalog*) 0 units SUBCUT ACHS [facility]; Protocol Last Admin: 06/16/19 07:52 Dose: Not Given Lisinopril (Prinivil Tab*) 5 mg PO DAILY [facility] Last Admin: 06/15/19 08:58 Dose: 5 mg Metoprolol Succinate (Toprol Xl Tab*) 50 mg PO DAILY [facility] Nicotine (Nicotine Patch 21 Mg/24 Hr*) 1 patch TRANSDERM DAILY [facility] Last Admin: 06/15/19 13:21 Dose: 1 patch Nitroglycerin (Nitroglycerin Tab 0.4 Mg*) 0.4 mg SL Q5M PRN PRN Reason: ANGINA Oxycodone/Acetaminophen (Percocet 5/325 Tab*) 1 tab PO Q6H PRN PRN Reason: PAIN Pharmacy Profile Note (Nicotine Patch Removal Note*) 1 note FOLLOW UP 2100 [facility] Last Admin: 06/15/19 20:14 Dose: 1 note Ropinirole HCl (Requip Tab*) 3 mg PO BEDTIME [facility] Last Admin: 06/15/19 20:13 Dose: 3 mg Ticagrelor (Brilinta*) 90 mg PO 0900,2100 [facility] Last Admin: 06/15/19 20:13 Dose: 90 mg Trazodone HCl (Desyrel Tab*) 100 mg PO BEDTIME [facility] Last Admin: 06/15/19 20:12 Dose: 100 mg Objective Vital Signs: Temp Pulse Resp BP Pulse Ox 97.4 F 72 19 108/83 95 06/16/19 03:55 06/16/19 08:01 06/16/19 08:01 06/16/19 08:00 06/16/19 08:01 Oxygen Devices in Use Now: None Appearance: Sitting in chair, offers no complaints at this time, NAD, A+O x3 Eyes: No Scleral Icterus, PERRLA Ears/Nose/Mouth/Throat: NL Teeth, Lips, Gums, Clear Oropharnyx, Mucous Membranes Moist Neck: NL Appearance and Movements; NL JVP, Trachea Midline Respiratory: Symmetrical Chest Expansion and Respiratory Effort, Clear to Auscultation Cardiovascular: NL Sounds; No Murmurs; No JVD, No Edema, - - right radial access site is intact, no hematoma, non tender to palpation, no oozing, normal sensation. strong palpable radial and ulnar pulse. Extremities: No Edema Skin: No Rash or Ulcers Neurological: Alert and Oriented x 3 Lines/Tubes/Other Access: Clean, Dry and Intact Peripheral IV Laboratory Results: 06/15/19 04:15 06/15/19 04:15 INR (Anticoag Therapy) 1.03 (0.82-1.09) 06/14/19 05:35 APTT 35.8 seconds (26.0-38.0) 06/14/19 05:35 Total Bilirubin 0.70 mg/dL (0.2-1.0) 06/15/19 04:15 AST 143 U/L (13-39) H 06/15/19 04:15 ALT 52 U/L (7-52) 06/15/19 04:15 Alkaline Phosphatase 55 U/L (34-104) 06/15/19 04:15 CK-MB (CK-2) 293.8 ng/mL (0.6-6.3) H 06/14/19 21:23 Total Protein 7.1 g/dL (6.4-8.9) 06/15/19 04:15 Albumin 4.0 g/dL (3.2-5.2) 06/15/19 04:15 Globulin 3.1 g/dL (2-4) 06/15/19 04:15 Albumin/Globulin Ratio 1.3 (1-3) 06/15/19 04:15 Triglycerides 182 mg/dL 06/15/19 04:15 Cholesterol 129 mg/dL 06/15/19 04:15 LDL Cholesterol 65 mg/dL 06/15/19 04:15 HDL Cholesterol 27.4 mg/dL 06/15/19 04:15 TSH 1.10 mcIU/mL (0.34-5.60) 06/15/19 09:24 06/14/19 06/14/19 06/14/19 05:35 10:55 16:19 Troponin I 0.02 51.73 H* 48.19 H* 06/14/19 06/15/19 21:23 04:15 Troponin I 55.15 H* 36.79 H* Laboratory Results - last 24 hr 06/15/19 06/15/19 06/15/19 04:15 08:43 09:24 Sodium 132 L Potassium 4.8 Chloride 99 L Carbon Dioxide 26 Anion Gap 7 BUN 15 Creatinine 0.86 Est GFR ( Amer) 114.4 Est GFR (Non-Af Amer) 94.5 BUN/Creatinine Ratio 17.4 Glucose 200 H POC Glucose (mg/dL) 84 Calcium 9.3 Magnesium 2.4 Total Bilirubin 0.70 AST 143 H ALT 52 Alkaline Phosphatase 55 Troponin I 36.79 H* Total Protein 7.1 Albumin 4.0 Globulin 3.1 Albumin/Globulin Ratio 1.3 Triglycerides 182 Cholesterol 129 LDL Cholesterol 65 HDL Cholesterol 27.4 TSH 1.10 Free T4 1.01 Free T3 3.60 06/15/19 06/15/19 06/15/19 11:25 16:53 20:01 Sodium Potassium Chloride Carbon Dioxide Anion Gap BUN Creatinine Est GFR ( Amer) Est GFR (Non-Af Amer) BUN/Creatinine Ratio Glucose POC Glucose (mg/dL) 236 H 153 H 181 H Calcium Magnesium Total Bilirubin AST ALT Alkaline Phosphatase Troponin I Total Protein Albumin Globulin Albumin/Globulin Ratio Triglycerides Cholesterol LDL Cholesterol HDL Cholesterol TSH Free T4 Free T3 06/16/19 07:28 Sodium Potassium Chloride Carbon Dioxide Anion Gap BUN Creatinine Est GFR ( Amer) Est GFR (Non-Af Amer) BUN/Creatinine Ratio Glucose POC Glucose (mg/dL) 102 H Calcium Magnesium Total Bilirubin AST ALT Alkaline Phosphatase Troponin I Total Protein Albumin Globulin Albumin/Globulin Ratio Triglycerides Cholesterol LDL Cholesterol HDL Cholesterol TSH Free T4 Free T3 Diagnostic Imaging: *[facility]* [place] [address] Fax #: [phone] Transthoracic Echocardiogram (Report amended [id number]) Patient: Neto Goddard : 1970 Study Date: 06/14/2019 Age: 49 Gender: M HR: 66 bpm Height: 71 in /180.3 cm BSA: 2.58 m^2 Weight: 319.3 lb /145.2 kg BMI: 44.6 kg/m^2 *Wind Turbine Technician: * Jordana Reich [facility] RN *Referring Physician: * Rudy Dwyer MD *Reading Physician: * Angel Blanc MD Indications: Myocardial Infarction (new). History: Risk factors: Hypertension. Diabetes mellitus. Obese. Labs, prior tests, procedures, and surgery: Catheterization with coronary intervention. Performed during the current admission. Conclusions Summary: - Left ventricle: The cavity size is at the upper limits of normal. Wall thickness is mildly increased. Systolic function is mildly reduced. The estimated ejection fraction is 50-55%. Doppler parameters are consistent with abnormal left ventricular relaxation (grade 1 diastolic dysfunction). - Right ventricle: The cavity size is normal. Wall thickness is mildly increased. - Mitral valve: There is trace to mild regurgitation. This report is only to be considered final once signed by the Provider(s) as displayed in the "<Electronically Signed by >" field (s). Absence of a signature indicates the report is in a draft status and still needs to be finalized. In the event this document was created by someone other than the signing Provider, the individual initiating the document will be listed in the "Entered by:" or "Dictated by:" miller. EKG Data: EKG 06/16/2019; Sinus rhythm 74 with inferior Q waves and inferior ST elevation comparable to prior ECG Telemetry reviewed sinus rhythm rate 70's with PVCs and occasional runs of ventricular trigeminy. No recurrent VT since 06/15/2019 at 0318. Assessment/Plan s/p Inferior KS with VT/VF arrest requiring successful defibrillation. He is s/ p LHC via right radial access 06/14/2019. He underwent extensive intervention to RCA with residual OM lesion. Troponin peaked on 06/14/2019 at 51. LVEF 50-55% with inferior region WMA. On ASA 81/mg, Brillinta 90mg BID, Lopressor 25mg/BID, Lipitor 80 QHS. No recurrent symptoms. Access site is intact. Will convert Lopressor to Toprol to simplify regimen. He is to recieve free 30 day supply of Brilinta prior to DC. I have asked heating unit mechanic to obtain bottle prior to being transferred from unit to . I reviewed the importance of smoking cessation with the patient for overall cardiovascular benefit. He is aware to not take more than 81mg of Aspirin a day in combination with Brillinta therapy. He is also aware of the importance of medication compliance specifically with Aspirin and Brillinta to avoid in stent thrombosis. Given presentation was cardiac arrest with ST elevation recommend minimum 12 months of uninterrupted DAPT decision to extend therapy will need to be evaluated on an outpatient basis. #2 Sustained monomorphic VT with variable rates on 06/15/2019 at 0318. No reoccurrence. IV amio discontinued. He has had brief runs of ventricular trigeminy. sustained VT on 06/15/2019 occurred within 48 hours of presentation consistent with ischemic VT. At this time it is unlikely that he would need lifevest unless he develops recurrent VT/VF. #3 h/o Legionella PNA; patient reports successfully completing outpatient course of PO Levaquin. Hospitalist consulted ID. Consultation reviewed. I called PCP and they are to see him next week and informed me that they will order repeat CXR in one month. #4 h/o DM; hospitalist managing. Consider SGLT2 inhibitor given mild LV dysfunction. tight glycemic control is imperative for secondary prevention. Long acting insulin maybe beneficial given glucose has been uncontrolled, in addition it may simplify his regimen. Will speak with hospitalist. HgbA1C was 7.4% this admit #5 h/o HLD on high intensity statin therapy. Goal LDL < 70. #6 disposition pending course will transfer out of ICU to . Tentative DC 2018. Will d/w Dr. Dwyer about plan of care. Depending upon how he responds to Toprol 50mg/day will consider increasing dose. Points of Discussion: I have seen and examined the patient and agree with the above assessment and plan. Radial artery site well healed with good antegrade flow in the radial artery. Will consider weaning off amiodarone IV tomorrow if ISAMAR stabilizes. Attending: Rudy Dwyer <Rduy Dwyer - Last Filed: 06/17/19 07:56> Medications Active Medications: Acetaminophen (Tylenol Tab*) 650 mg PO Q4H PRN PRN Reason: HEADACHE/PAIN Aspirin (Aspirin 81 Mg Chew Tab*) 81 mg PO DAILY [facility] Last Admin: 06/16/19 08:46 Dose: 81 mg Atorvastatin Calcium (Lipitor*) 80 mg PO 1700 [facility] Last Admin: 06/16/19 17:28 Dose: 80 mg Enoxaparin Sodium (Lovenox(*)) 40 mg SUBCUT Q24H [facility] Last Admin: 06/16/19 17:28 Dose: 40 mg Lisinopril (Prinivil Tab*) 5 mg PO DAILY [facility] Last Admin: 06/16/19 08:46 Dose: 5 mg Metformin HCl (Glucophage*) 500 mg PO BID [facility] Last Admin: 06/16/19 21:43 Dose: 500 mg Metoprolol Succinate (Toprol Xl Tab*) 50 mg PO DAILY [facility] Last Admin: 06/16/19 08:46 Dose: 50 mg Nicotine (Nicotine Patch 21 Mg/24 Hr*) 1 patch TRANSDERM DAILY [facility] Last Admin: 06/16/19 08:46 Dose: 1 patch Nitroglycerin (Nitroglycerin Tab 0.4 Mg*) 0.4 mg SL Q5M PRN PRN Reason: ANGINA Oxycodone/Acetaminophen (Percocet 5/325 Tab*) 1 tab PO Q6H PRN PRN Reason: PAIN Pharmacy Profile Note (Nicotine Patch Removal Note*) 1 note FOLLOW UP 2100 [facility] Last Admin: 06/16/19 21:47 Dose: Not Given Ropinirole HCl (Requip Tab*) 3 mg PO BEDTIME [facility] Last Admin: 06/16/19 21:43 Dose: 3 mg Ticagrelor (Brilinta*) 90 mg PO 0900,2100 [facility] Last Admin: 06/16/19 21:43 Dose: 90 mg Trazodone HCl (Desyrel Tab*) 100 mg PO BEDTIME [facility] Last Admin: 06/16/19 21:43 Dose: 100 mg Objective Vital Signs: Temp Pulse Resp BP Pulse Ox 97.7 F 74 16 106/64 97 06/17/19 07:38 06/17/19 07:38 06/17/19 07:38 06/17/19 07:38 06/17/19 07:38 Laboratory Results: 06/15/19 04:15 06/15/19 04:15 INR (Anticoag Therapy) 1.03 (0.82-1.09) 06/14/19 05:35 APTT 35.8 seconds (26.0-38.0) 06/14/19 05:35 Total Bilirubin 0.70 mg/dL (0.2-1.0) 06/15/19 04:15 AST 143 U/L (13-39) H 06/15/19 04:15 ALT 52 U/L (7-52) 06/15/19 04:15 Alkaline Phosphatase 55 U/L (34-104) 06/15/19 04:15 CK-MB (CK-2) 293.8 ng/mL (0.6-6.3) H 06/14/19 21:23 Total Protein 7.1 g/dL (6.4-8.9) 06/15/19 04:15 Albumin 4.0 g/dL (3.2-5.2) 06/15/19 04:15 Globulin 3.1 g/dL (2-4) 06/15/19 04:15 Albumin/Globulin Ratio 1.3 (1-3) 06/15/19 04:15 Triglycerides 182 mg/dL 06/15/19 04:15 Cholesterol 129 mg/dL 06/15/19 04:15 LDL Cholesterol 65 mg/dL 06/15/19 04:15 HDL Cholesterol 27.4 mg/dL 06/15/19 04:15 TSH 1.10 mcIU/mL (0.34-5.60) 06/15/19 09:24 06/14/19 06/14/19 06/14/19 05:35 10:55 16:19 Troponin I 0.02 51.73 H* 48.19 H* 06/14/19 06/15/19 21:23 04:15 Troponin I 55.15 H* 36.79 H* Assessment/Plan Points of Discussion: I have seen and examined the patient and agree with the above plan. I had a personal discussion with Dr. Chepe Lock, business support specialist at [facility]. He feels that the ISAMAR is more likely ischemic/reperfusion diven. We will wean of amiodarone and increase the metoprolol.
[2019-06-16] MEDS: metFORMIN* 500 MG TAB PO SCH ×2 (10:19→21:43)
[2019-06-16] MEDS: DAPAGLIFLOZIN 10 MG TAB (NF) PO SCH (10:20)
[2019-06-16] MEDS: Atorvastatin* 80 MG TAB PO SCH (17:28)
[2019-06-16] MEDS: Enoxaparin(*) 40 MG/0.4 ML SYR SUBCUT SCH (17:28)
[2019-06-16] MEDS: traZODone TAB* 100 MG PO SCH (21:43)
[2019-06-16] MEDS: rOPINIRole TAB* 1 MG PO SCH (21:43)
[2019-06-16] MEDS: Nicotine Patch Removal NOTE FOLLOW UP SCH (21:47)
[2019-06-17] MEDS: DAPAGLIFLOZIN 10 MG TAB (NF) PO SCH (08:27)
[2019-06-17] MEDS: Metoprolol Succinate XL TAB* 50 MG PO SCH (08:30)
[2019-06-17] MEDS: Lisinopril TAB* 5 MG PO SCH (08:30)
[2019-06-17] MEDS: Aspirin 81 mg CHEW TAB* 81 MG TAB.CHEW PO SCH (08:30)
[2019-06-17] MEDS: metFORMIN* 500 MG TAB PO SCH (08:30)
[2019-06-17] MEDS: Nicotine PATCH 21 MG/24 HR* PATCH TRANSDERM SCH (08:30)
[2019-06-17] MEDS: Ticagrelor* 90 MG TAB PO SCH (08:30)
--- NOTE | 2019-06-17 11:34 | PN ---
Subjective Date of Service: 06/17/19 Interval History: Patient reports that he is feeling better today. Denies chest pain or shortness of breath. Denies fever or chills. Denies abd pain n/v/d. Ambulating in the hallways without difficulty. Family History: Unchanged from Admission Social History: Unchanged from Admission Past Medical History: Unchanged from Admission Objective Active Medications: Acetaminophen (Tylenol Tab*) 650 mg PO Q4H PRN PRN Reason: HEADACHE/PAIN Aspirin (Aspirin 81 Mg Chew Tab*) 81 mg PO DAILY [facility] Last Admin: 06/17/19 08:30 Dose: 81 mg Atorvastatin Calcium (Lipitor*) 80 mg PO 1700 [facility] Last Admin: 06/16/19 17:28 Dose: 80 mg Enoxaparin Sodium (Lovenox(*)) 40 mg SUBCUT Q24H [facility] Last Admin: 06/16/19 17:28 Dose: 40 mg Lisinopril (Prinivil Tab*) 5 mg PO DAILY [facility] Last Admin: 06/17/19 08:30 Dose: 5 mg Metformin HCl (Glucophage*) 500 mg PO BID [facility] Last Admin: 06/17/19 08:30 Dose: 500 mg Metoprolol Succinate (Toprol Xl Tab*) 50 mg PO DAILY [facility] Last Admin: 06/17/19 08:30 Dose: 50 mg Nicotine (Nicotine Patch 21 Mg/24 Hr*) 1 patch TRANSDERM DAILY [facility] Last Admin: 06/17/19 08:30 Dose: 1 patch Nitroglycerin (Nitroglycerin Tab 0.4 Mg*) 0.4 mg SL Q5M PRN PRN Reason: ANGINA Oxycodone/Acetaminophen (Percocet 5/325 Tab*) 1 tab PO Q6H PRN PRN Reason: PAIN Pharmacy Profile Note (Nicotine Patch Removal Note*) 1 note FOLLOW UP 2099 [facility] Last Admin: 06/16/19 21:47 Dose: Not Given Ropinirole HCl (Requip Tab*) 3 mg PO BEDTIME [facility] Last Admin: 06/16/19 21:43 Dose: 3 mg Ticagrelor (Brilinta*) 90 mg PO 0900,2099 [facility] Last Admin: 06/17/19 08:30 Dose: 90 mg Trazodone HCl (Desyrel Tab*) 100 mg PO BEDTIME [facility] Last Admin: 06/16/19 21:43 Dose: 100 mg Vital Signs - 8 hr 08/03/19 08/03/19 07:16 07:38 Temperature 97.7 F Pulse Rate 74 Respiratory 16 16 Rate Blood Pressure 106/64 (mmHg) O2 Sat by Pulse 97 Oximetry Oxygen Devices in Use Now: None Appearance: alert, no acute distress Eyes: No Scleral Icterus Ears/Nose/Mouth/Throat: Clear Oropharnyx, Mucous Membranes Moist Neck: NL Appearance and Movements; NL JVP, Trachea Midline Respiratory: Symmetrical Chest Expansion and Respiratory Effort, Clear to Auscultation Cardiovascular: NL Sounds; No Murmurs; No JVD, No Edema Abdominal: NL Sounds; No Tenderness; No Distention Extremities: No Edema, No Clubbing, Cyanosis Skin: No Rash or Ulcers Neurological: Alert and Oriented x 3 Nutrition: Taking PO's Result Diagrams: 06/15/19 04:15 06/15/19 04:15 Microbiology and Other Data: Microbiology 06/14/19 10:55 Nasal Screen MRSA (PCR) - Final Nasal Mrsa Not Detected Assess/Plan/Problems-Billing Assessment: Mr. Goddard is a 49 y.o male with pmhx of htn, type 2 DM, hld who has a recent hx of legionella pneumonia who was treated with levaquin for 7 days which finished 06/08/19. He presented chest pain in inferior- posterior FL requiring emergency cardiac cath. - Patient Problems (1) ST elevation (STEMI) myocardial infarction Current Visit: Yes Status: Acute Code(s): I21.3 - ST ELEVATION (STEMI) MYOCARDIAL INFARCTION OF [facility] SITE SNOMED Code(s): 76454172 Comment: managment per interventional cardiology continue ASA, lipitor, metoprolol and brilinta (2) S/P cardiac catheterization Current Visit: Yes Status: Acute Code(s): Z98.890 - OTHER SPECIFIED POSTPROCEDURAL STATES SNOMED Code(s): 73212151627571 Comment: management per interventional cardiology (3) COPD exacerbation Current Visit: No Status: Acute Code(s): J44.1 - CHRONIC OBSTRUCTIVE PULMONARY DISEASE W (ACUTE) EXACERBATION SNOMED Code(s): 246252760 Comment: Ct- shows consolidation in the RUL with mildly enlarged lymph nodes - patient had recent leigonella pneumonia and was treated with levaquin for 7 days last dose was 06/08/19- completed 7 days couse - ID was consulted and recommended no further antibiotics, repeat chest x ray in 1 month - will monitor for sign of further infection and stop doxycycline (4) HTN (hypertension) Current Visit: No Status: Chronic Code(s): I10 - ESSENTIAL (PRIMARY) HYPERTENSION SNOMED Code(s): 75098468 Comment: Restart home medications. (5) Type 2 diabetes mellitus Current Visit: No Status: Chronic Comment: resumed metformin and dapagliflozin fingersticks stopped SS should continue home medications as previously prescribed continue with diet and exercise (6) DVT prophylaxis Current Visit: No Status: Acute Code(s): Z29.9 - ENCOUNTER FOR PROPHYLACTIC MEASURES, UNSPECIFIED SNOMED Code(s): 717981182 Comment: SCDs Status and Disposition: discharge home
[2019-06-17 11:36] VITALS: BP 106/68
--- NOTE | 2019-06-17 12:32 | DS ---
CC: Oracio Hurley NP DISCHARGE SUMMARY: DATE OF ADMISSION: 06/14/19 DATE OF DISCHARGE: 06/17/19 FINAL DIAGNOSIS: Qtjei-WL-iuehywp elevation inferior posterior wall myocardial infarction. SECONDARY DIAGNOSES: 1. Stenotic coronary artery disease. 2. Obesity. 3. Qru-thrqkjd-nokciqfkd diabetes mellitus. 4. Hypertension. 5. Hyperlipidemia. 6. Smoking history. DISCHARGE MEDICATIONS: Include, 1. Propanediol (dapagliflozin) 5 mg a day. 2. Metformin 500 mg twice a day. 3. ReQuip 3 mg at bedtime. 4. Tiotropium 4 mg daily. 5. Desyrel tablet 100 mg at bedtime. 6. Aspirin 81 mg a day. 7. Lipitor 80 mg a day. 8. Metoprolol succinate 50 mg in the morning, 25 mg at night. 9. Lisinopril 5 mg daily. 10. Nicotine patch 21 mg per hour.(to be titrated off by Oracio Hurley,URMILA is health care provider) 11. Nitroglycerine sublingually 0.4 mg as needed p.r.n. 12. Brilinta 90 mg twice a day. HOSPITAL COURSE: The patient is a 49-year-old gentleman came to [facility] in the throws of an acute ST segment elevation inferior posterior wall myocardial infarction. Please refer to the H and P for complete details of presentation. It should be noted the patient did have ventricular tachycardia and ventricular fibrillation arrest in the emergency room in the acute throws of the ST segment elevation inferior wall myocardial infarction. He was taken emergently to the cardiovascular laboratory and underwent cardiac catheterization and intervention. He was found to have a totally occluded distal right coronary artery that on reconstitution revealed severe diffuse coronary artery disease to the distal vessel, multiple branches with diabetic- appearing distal vessel small in caliber. He underwent successful intervention with placement of 2.0 x 12 mm long Resolute Pako drug-eluting stent in the proximal portion of the last posterior left ventricular branch as well as placement of a 4.0 x 28 mm long Synergy drug-eluting stent in the distal right coronary artery spanning the posterior descending artery and placement of a 4.0 x 16 mm long Synergy drug-eluting stent in the mid right coronary artery. He was noted to have a second diagonal branch, small in caliber with a 75% to 80% narrowing within that vessel as well as the circumflex that had a moderate size mid obtuse marginal branch had a proximal 65% to 70% narrowing. Post-intervention, the patient was noted to have a significant reperfusion arrhythmias runs of non-sustained ventricular tachycardia and AIVR with rates under 100 and minimally occasional couplet intervals of greater than 100. These eventually subsided over the course of his hospitalization where he would have PVCs and the rare infrequent couplet. Of note, I personally call Dr. Chepe Jimenes and discussed these findings with him and he felt that at this point in time, we should not pursue amiodarone therapy since this was in the setting of ischemic and reperfusion. He did state that if after 48 hours, he continued to have runs, then further consideration have to be noted, of note, this did not occur. Of note, he was up and about walking in the halls, asymptomatic for the 2 days prior to discharge. During the course of the hospitalization, he had a echocardiogram that was performed on 06/14/19 demonstrating an EF to 50% to 55% with definitive focal wall motion abnormality showing hypokinesis of the mid inferior myocardium, dyskinesis of the basal inferior with severe hypokinesis of the mid inferior wall, hypokinesis of the midinferior septum, moderate hypokinesis of the apical inferior wall. There was trace to mild mitral regurgitation. The right ventricle is normal cavity in size and mildly increased wall thickness. Of note, the hospitalist were consulted for both diabetic management as well as further evaluation of the abnormal chest findings with a worsening infiltrate in the right upper lobe. On review of this, the patient was seen approximately 2 to 3 weeks before in the emergency room and was found to be legionella positive with an infiltrate in that area at that time. His followup chest x- ray in the emergency room showed a larger appearing infiltrate. A CT scan was performed as well and the patient was seen during hospitalization by Dr. Joe (infectious disease specialist), who felt that most likely in the setting of clinical pneumonia in the past the findings represented potentially lagging resolution of his recent pneumonia. He did recommend, however, repeat chest x-ray in approximately 1-month for evaluation of resolution of this area in the right upper lobe and that will be pursued by nurse practitioner, Oracio Hurley, who was made aware of this and actually called personally to have a discussion regarding this. We will have Nurse practioner Oracio Hurley work with the patient to wean off the nicotine patch and help him maintain smoking cessation. PHYSICAL EXAMINATION ON THE DAY OF DISCHARGE: Revealed the patient in stable condition. Vital signs 106/64, pulse 74 and regular, respirations 16, O2 saturation 97% on room air. Neck was supple with no increased JVP without bruits. Lungs were fairly clear to A and P. Heart revealed a regular rate and rhythm with no significant systolic/diastolic murmur, somewhat distant in nature due to large chest size. Abdomen was soft, obese in nature. Extremities without edema. The right radial artery area was well healed with no significant swelling or ecchymosis, no bruit was present and there was good antegrade flow. Neuro: The patient was alert, oriented with normal mentation. Musculoskeletal: The patient with normal gait. Psychiatric: The patient with normal affect. DIAGNOSTIC STUDIES: Electrocardiogram noted on the day of discharge reveals sinus rhythm, heart rate 74. He had evidence of Q waves in 2,[address] segment elevation in those leads, but was stable. DISCHARGE INSTRUCTIONS: At the time of discharge, he received an education booklet as well as multiple stent cards for his procedure. He is scheduled for a wound check followup appointment with my partner, Dr. Robin Perez on at 3:20 p.m. He has a primary care visit on 06/22/19 at 1 p.m. He was instructed to call us with any concerns regarding wound care or other issues and he was instructed to bring all of his pill bottles and discharge information to all of his office visits. I answered all of his questions to his satisfaction. [id number]/[facility] #: [id number] TITUS
== END 2019-06-17 12:48 | disposition home or self-care (01) | DRG 174 ==
LOC: ED 05:21 → CHICATH 05:58 → ICU 07:33 → UNDOADMIN 07:42 → MEDTELE 06-16 09:35
PROVIDERS: ADMIT Internal Medicine Cardiovascular Disease; ATTEND Internal Medicine Cardiovascular Disease
PROC: 02703ZZ Dilation of Coronary Artery, One Artery, Percutaneous Approach (ICD-10-PCS; principal; 2019-06-16)
PROC: B2111ZZ Fluoroscopy of Multiple Coronary Arteries using Low Osmolar Contrast (ICD-10-PCS; 2019-06-16)
PROC: 027236Z Dilation of Coronary Artery, Three Arteries with Three Drug-eluting Intraluminal Devices, Percutaneous Approach (ICD-10-PCS; 2019-06-16)
DX: I21.29 ST elevation (STEMI) myocardial infarction involving other sites (principal); I49.01 Ventricular fibrillation; Z68.41 Body mass index [BMI] 40.0-44.9, adult; I47.2 Ventricular tachycardia; J44.1 Chronic obstructive pulmonary disease with (acute) exacerbation; I25.10 Atherosclerotic heart disease of native coronary artery without angina pectoris; I49.3 Ventricular premature depolarization; I34.0 Nonrheumatic mitral (valve) insufficiency; F17.210 Nicotine dependence, cigarettes, uncomplicated; E66.01 Morbid (severe) obesity due to excess calories; L40.9 Psoriasis, unspecified; D72.829 Elevated white blood cell count, unspecified; E11.9 Type 2 diabetes mellitus without complications; I10 Essential (primary) hypertension; E78.5 Hyperlipidemia, unspecified; Z79.82 Long term (current) use of aspirin; Z79.02 Long term (current) use of antithrombotics/antiplatelets; Z87.01 Personal history of pneumonia (recurrent); Z83.3 Family history of diabetes mellitus; Z82.49 Family history of ischemic heart disease and other diseases of the circulatory system
CPT/HCPCS: 36415; 71045; 71250; 76937; 80053; 80061; 82550; 82553; 83036; 83721; 83735; 84439; 84443; 84481; 84484; 85025; 85347; 85610; 85730; 86140; 87641; 93005; 93306; 99285; 99406; A9270-GY; C1725; C1769; C1874; C1876; C9606-RC; J0282; J0583; J1644; J1650; J2250; J2270; J2405; J2765; J3010; J3490; Q9967